=== PATIENT | male | born 1960 | race Caucasian/White ===

== ENCOUNTER 2018-08-03 13:43 | Inpatient (IN) ==
[2018-08-03] MEDS ORDERED: Sod Chloride 0.9% Inj 1,000 ML IV.SIG ONE (14:01)
[2018-08-03 14:25] LABS: Baso % (Auto) 0.1 % (0.0-2.0); Hematocrit 31.4 % (39.0-51.0); Hemoglobin 10.4 gm/dL (13.0-17.0); Lymph # (Auto) 0.4 th/mm3 (1.0-4.8); Lymph % (Auto) 5.5 % (9.0-44.0); Mean Corpuscular HGB Conc 33.2 % (32.0-36.0); Mean Corpuscular Volume 120.4 fL (80.0-100.0); Mean Platelet Volume 9.4 fL (7.0-11.0); Mono # (Auto) 0.6 th/mm3 (0.0-0.9); Mono % (Auto) 7.8 % (0.0-8.0); Neut # (Auto) 6.8 th/mm3 (1.8-7.7); Neut % (Auto) 86.6 % (16.0-70.0); Platelet Count 88 th/mm3 (150-450); Red Blood Count 2.61 mil/mm3 (4.50-5.90); Red Cell Distribution Width 16.6 % (11.6-17.2); White Blood Count 7.9 th/mm3 (4.0-11.0)
[2018-08-03] MEDS ORDERED: Pantoprazole Inj 40 MG Vial IV.PUSH ONE (14:27)
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
--- NOTE | 2018-08-03 14:27 | XR ---
EXAM DATE: 08/03/2018 2:23 PM EDT AGE/SEX: 57 years / Male INDICATIONS: Shortness of breath. CLINICAL DATA: This is the patient's initial encounter. Patient reports that signs and symptoms have been present for 1 day and indicates a pain score of 0/10. MEDICAL/SURGICAL HISTORY: Chronic obstructive pulmonary disease. None. COMPARISON: No prior exams available for comparison. FINDINGS: Lungs are hyperexpanded with biapical bolus change. No significant focal pleural or parenchymal opaci ties. The cardiomediastinal contours are unremarkable. Osseous structures are intact. CONCLUSION: 1. Changes of obstructive pulmonary disease without acute abnormality. Electronically signed by: Minor Bowman MD 08/03/2018 2:26 PM EDT
[2018-08-03 14:34] LABS: INR 1.3 Ratio; Prothrombin Time 13.2 sec (9.8-11.6)
[2018-08-03 14:38] LABS: Albumin 2.6 g/dL (3.4-5.0); Anion Gap 21 meq/L (5-15); Aspartate Aminotransferase 192 U/L (15-37); Blood Urea Nitrogen 20 mg/dL (7-18); Carbon Dioxide 21.6 meq/L (21.0-32.0); Chloride 92 meq/L (98-107); Glomerular Filtration Rate Greater Than 89 mL/min (>89); Glucose,Random 106 mg/dL (74-106); Magnesium 1.7 mg/dL (1.5-2.5); Potassium 3.7 meq/L (3.5-5.1); Sodium 135 meq/L (136-145)
[2018-08-03 14:39] LABS: Alanine Aminotransferase 76 U/L (12-78)
[2018-08-03 14:43] LABS: Alkaline Phosphatase 239 U/L (45-117)
[2018-08-03 14:52] LABS: Basophilic Stippling Moderate
[2018-08-03] MEDS ORDERED: Haloperidol Inj 5 MG/ML Ampul IV.PUSH PRN (15:17)
--- NOTE | 2018-08-03 15:25 | CT ---
EXAM DATE: 08/03/2018 3:18 PM EDT AGE/SEX: 57 years / Male INDICATIONS: Dizziness, weakness. CLINICAL DATA: This is the patient's initial encounter. Patient reports that signs and symptoms have been present for 1 day and indicates a pain score of 0/10. MEDICAL/SURGICAL HISTORY: Chronic obstructive pulmonary disease. Barretts esophagus. None. RADIATION DOSE: 56.35 CTDI (mGy) COMPARISON: [facility] [place], CT BRAIN W/O CONTRAST, 07/14/2011. . TECHNIQUE: CT of the head without contrast. Using automated exposure control and adjustment of the mA and/or kV according to patient size, radiation dose was kept as low as reasonably achievable to ob tain optimal diagnostic quality images. DICOM format image data is available electronically for revi ew and comparison. FINDINGS: Cerebrum: The ventricles are normal for age. Very mild, symmetric cortical atrophy. No evidence of midline shift, mass lesion, hemorrhage or acute infarction. No extraaxial fluid collections are seen . Posterior Fossa: The cerebellum and brainstem are intact. The 4th ventricle is midline. The cerebe llopontine angle is unremarkable. Extracranial: The visualized portion of the orbits is intact. Chronic opacification of the superior aspect of the left maxillary antra with regional bony thickening. Skull: The calvaria is intact. No evidence of skull fracture. CONCLUSION: 1. Chronic sinusitis with regional bony thickening in the superior aspect of the left maxillary antr a. 2. Mild, symmetric cortical atrophy. 3. Nothing acute. . Electronically signed by: Demarco Mauro MD 08/03/2018 3:23 PM EDT
[2018-08-03 15:40] LABS: Bilirubin,Urine Small (Negative); Clarity,Urine Hazy (Clear); Color,Urine Amber (Yellw/Straw); Glucose,Urine (UA) 50 mg/dL (Negative); Hyaline Casts,Urine 3 /lpf (0-3); Ictotest,Urine Positive (Negative); Leukocyte Esterase,Urine Negative (Negative); Mucus,Urine Few /lpf (Occasional); Nitrite,Urine Negative (Negative); Specific Gravity,Urine 1.025 (1.002-1.035); Squamous Epithelial Cell,Urine <1 /hpf (0-5); Urobilinogen,Urine 4 or Greater mg/dL (Less than 2)
[2018-08-03] MEDS: Pantoprazole Inj 80 MG in Sodium Chlor 0.9% Inj 100 ML IV.CONT SCH (16:13)
--- NOTE | 2018-08-03 16:45 | CT ---
EXAM DATE: 08/03/2018 4:37 PM EDT AGE/SEX: 57 years / Male INDICATIONS: Weakness, abdomen pain CLINICAL DATA: This is the patient's initial encounter. Patient reports that signs and symptoms have been present for 1 day and indicates a pain score of 4/10. MEDICAL/SURGICAL HISTORY: Chronic obstructive pulmonary disease. None. ORAL CONTRAST: No oral contrast ingested. RADIATION DOSE: 4.51 CTDI (mGy) COMPARISON: [facility] [place], CT ABDOMEN & PELVIS W CONTRAST, 04/22/2013. . TECHNIQUE: Multiple contiguous axial images were obtained through the abdomen and pelvis following b olus infusion of 96 ml Omnipaque 350 (iohexol) nonionic water-soluble contrast as a cumulative dose for multiple exams. No oral contrast ingested. Using automated exposure control and adjustment of t he mA and/or kV according to patient size, radiation dose was kept as low as reasonably achievable to obtain optimal diagnostic quality images. DICOM format image data is available electronically for r eview and comparison. FINDINGS: Lower Lungs: Bibasilar emphysematous changes. No acute infiltrate. Liver: The liver has a homogeneous, but decreased density without space-occupying lesion. There is no dilation of the biliary tree. Spleen: Homogeneous density without enlargement. Pancreas: Calcifications in the pancreatic head and uncinate process Kidneys: Normal in size and shape. No evidence of mass or hydronephrosis. Small, subcentimeter cyst in the inferior pole cortex of the left kidney. Adrenal Glands: Unremarkable. Aorta: The aorta and proximal iliac vessels are grossly unremarkable without aneurysmal dilation. Bowel/Mesentery: The bowel loops are grossly unremarkable. The cecum and sigmoid colon have a normal configuration. Abdominal Wall: Intact. Retroperitoneum: No evidence of adenopathy in the retrocrural, para-aortic, or deep pelvic regions. Bladder: Contours are smooth. Reproductive Organs: No abnormal masses or calcifications seen. Inguinal: The inguinal region is unremarkable without evidence of adenopathy. Bony Structures: Unremarkable. Post Contrast: No abnormal areas of enhancement seen. CONCLUSION: 1. Chronic pancreatitis with some calcifications in the head and uncinate process. No acute pancreat itis. 2. Diffuse hepatic fatty infiltration. 3. Bibasilar emphysematous changes with no acute infiltrate. Electronically signed by: Demarco Mauro MD 08/03/2018 4:43 PM EDT
--- NOTE | 2018-08-03 18:00 | P.HP ---
History of Present Illness Service: Hospitalist Primary Care Physician: No Primary Care Physician Chief Complaint: Black stool History of Present Illness: Patient is a 57-year-old male with a past medical history of COPD, Stern's esophagus and EtOH abuse. He presents to the ED for an evaluation of weakness - per ED report he was found lying on the side of the road and was picked up by EMS. He was found to have a blood sugar of 50 at that time and endorsed that he had not eaten in a few days; given D50 by EMS. He says he has been so weak he could not walk and had multiple falls. He endorses black stool and occasional emesis with some red blood in it. Also has a complaint of recent weight loss; stating that his pants are falling off. He denies any shortness of breath or chest pain. No nausea vomiting or diarrhea. Does acknowledge a history of EtOH use and liver disease and has reduced his alcohol intake but still drinks occasionally. He is a smoker. Reports that he lives in a hotel room with his longtime girlfriend. No children or other family in the area. 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 - Diagnosis (1) GI bleed (2) Cachectic (3) COPD (chronic obstructive pulmonary disease) (4) Weakness (5) Frequent falls (6) Unintentional weight loss Review of Systems All other systems reviewed negative except as stated in HPI PMFSH - History History Provided By: Patient, Medical Record - Medical History Medical History: Medical History (Last Updated 08/03/18 @ 17:55 by DORIE Terry) Barretts esophagus COPD (chronic obstructive pulmonary disease) Chronic pancreatitis Fatty liver Rectal prolapse - Surgical History Surgical History: Surgical History (Last Reviewed 08/03/18 @ 14:23 by SARAH De Luna) History of hernia repair - Family History Family History: Family History (Last Updated 08/03/18 @ 17:55 by DORIE Terry) Father AAA (abdominal aortic aneurysm, ruptured) Mother CVA (cerebral vascular accident) - Tobacco History Second Hand Smoke Exposure: Yes Tobacco Use In Past 30 Days: Yes Smoking Status: Current some day smoker Tobacco Type: Cigarettes - Alcohol History How Often Do You Have a Drink Containing Alcohol: 4 or more times a week - Substance Use History Substance History: Past History - Travel History Recent Travel in the [facility] Within the Last 8 Weeks: No Recent Travel Out of the Country Within the Last 8 Weeks: No - Immunization History Tetanus Immunization: >5 Years Medications and Allergies Active Medications: Active Medications Flumazenil (Romazecon Inj) 0.2 mg IV.PUSH Q1M PRN PRN Reason: OVERSEDATION Haloperidol Lactate (Haldol Inj) 1 mg IV.PUSH Q15M PRN PRN Reason: for severe agitation Pantoprazole Sodium 80 mg/ (Sodium Chloride) 100 mls @ 10 mls/hr IV.CONT CONT GILMAR Last Admin: 08/03/18 16:13 Dose: 10 mls/hr Sodium Chloride (Ns Inj) 1,000 mls @ 100 mls/hr IV.CONT .Q10H GILMAR Lorazepam (Ativan Inj) 1 mg IV.PUSH Q4H PRN PRN Reason: for CIWA 8-10 Lorazepam (Ativan Inj) 2 mg IV.PUSH Q15M PRN PRN Reason: for CIWA > 20 Lorazepam (Ativan Inj) 2 mg IV.PUSH Q1H PRN PRN Reason: for CIWA 15-20 Lorazepam (Ativan Inj) 2 mg IV.PUSH Q2H PRN PRN Reason: for CIWA 11-14 Lorazepam (Ativan) 1 mg PO Q4H PRN PRN Reason: for CIWA 8-10 Lorazepam (Ativan) 2 mg PO Q2H PRN PRN Reason: for CIWA 11-14 Sodium Chloride (Ns Flush) 2 ml IV.FLUSH PRN PRN PRN Reason: FLUSH AFTER USING IV ACCESS Allergies Allergy/AdvReac Type Severity Reaction Status Date / Time No Known Allergies Allergy Verified 08/03/18 13:56 Home Medications Medication Instructions Recorded Confirmed Type No Known Home Medications 08/03/18 08/03/18 History Exam Vital signs: Vital Signs 08/03/18 13:49 08/03/18 14:20 08/03/18 15:39 Temperature 97.4 F L 98 F Pulse Rate 70 74 Respiratory Rate 18 Blood Pressure 129/81 Pulse Oximetry 99 100 08/03/18 15:48 Temperature Pulse Rate 62 Respiratory Rate 20 Blood Pressure 98/64 L Pulse Oximetry 100 Intake & Output 08/02/18 08/03/18 08/03/18 18:59 06:59 18:59 Intake Total 1000 / 1000 Balance 1000 / 1000 Weight 58.967 kg Intake: IV 1000 / 1000 NS Inj 1,000 ML @ Wide Open IV. 1000 / 1000 SIG BOLUS ONE Rx#:[id number] Narrative: GENERAL: Cachectic, well-developed adult male in no obvious distress. Appears much older than stated age SKIN: Warm and dry. Areas of ecchymosis along left forearm and shins bilaterally. Blister on right second toe. HEAD: Atraumatic. Normocephalic. Poor dentition. EYES: Icterus CARDIOVASCULAR: Regular rate and rhythm. RESPIRATORY: No accessory muscle use. Clear to auscultation. Breath sounds equal bilaterally. GASTROINTESTINAL: Abdomen soft, non-tender, non-distended. Positive bowel sounds. MUSCULOSKELETAL: Extremities without clubbing, cyanosis, or edema. No obvious deformities. NEUROLOGICAL: Awake and alert. No obvious cranial nerve deficits. Motor grossly within normal limits. Normal speech. PSYCHIATRIC: Appropriate mood and affect; insight and judgment good. Results - Labs CBC & Chem 7: 08/03/18 14:13 08/03/18 14:13 Labs: Laboratory Results - last 24 hr 08/03/18 08/03/18 08/03/18 14:13 14:13 14:13 WBC 7.9 RBC 2.61 L Hgb 10.4 L Hct 31.4 L MCV 120.4 H MCH 40.0 H MCHC 33.2 RDW 16.6 Plt Count 88 L MPV 9.4 Prelim Diff (Auto) Slide review pending Neut % (Auto) 86.6 H Lymph % (Auto) 5.5 L [place] % (Auto) 7.8 Eos % (Auto) 0.0 Baso % (Auto) 0.1 Neut # (Auto) 6.8 Lymph # (Auto) 0.4 L [place] # (Auto) 0.6 Eos # (Auto) 0.0 Baso # (Auto) 0.0 WBC Differential . Diff Scan Auto diff confirmed Differential Comment . Platelet Estimate Low L Platelet Morphology Enlarged H Polychromasia 2.0 H Basophilic Stippling Moderate H PT 13.2 H INR 1.3 Sodium 135 L Potassium 3.7 Chloride 92 L Carbon Dioxide 21.6 Anion Gap 21 H BUN 20 H Creatinine 0.80 Estimated GFR Greater than 89 Random Glucose 106 Calcium 8.0 L Magnesium 1.7 Total Bilirubin 6.0 H AST 192 H ALT 76 Alkaline Phosphatase 239 H Troponin I Less than 0.02 L Total Protein 6.0 L Albumin 2.6 L Lipase Urine Color Urine Clarity Urine pH Ur Specific [place] Urine Protein Urine Glucose (UA) Urine Ketones Urine Occult Blood Urine Nitrate Urine Bilirubin Urine Ictotest Urine Urobilinogen Ur Leukocyte Esterase Urine RBC Urine WBC Ur Squamous Epith Cells Hyaline Casts Urine Mucus Micro UA Comment Ur Microscopic Review Urine Culture Comments Serum Alcohol Blood Type Antibody Screen 08/03/18 08/03/18 08/03/18 14:13 14:13 14:13 WBC RBC Hgb Hct MCV MCH MCHC RDW Plt Count MPV Prelim Diff (Auto) Neut % (Auto) Lymph % (Auto) [place] % (Auto) Eos % (Auto) Baso % (Auto) Neut # (Auto) Lymph # (Auto) [place] # (Auto) Eos # (Auto) Baso # (Auto) WBC Differential Diff Scan Differential Comment Platelet Estimate Platelet Morphology Polychromasia Basophilic Stippling PT INR Sodium Potassium Chloride Carbon Dioxide Anion Gap BUN Creatinine Estimated GFR Random Glucose Calcium Magnesium Total Bilirubin AST ALT Alkaline Phosphatase Troponin I Total Protein Albumin Lipase 162 Urine Color Urine Clarity Urine pH Ur Specific [place] Urine Protein Urine Glucose (UA) Urine Ketones Urine Occult Blood Urine Nitrate Urine Bilirubin Urine Ictotest Urine Urobilinogen Ur Leukocyte Esterase Urine RBC Urine WBC Ur Squamous Epith Cells Hyaline Casts Urine Mucus Micro UA Comment Ur Microscopic Review Urine Culture Comments Serum Alcohol Less than 3 Blood Type O Negative Antibody Screen Negative 08/03/18 14:53 WBC RBC Hgb Hct MCV MCH MCHC RDW Plt Count MPV Prelim Diff (Auto) Neut % (Auto) Lymph % (Auto) [place] % (Auto) Eos % (Auto) Baso % (Auto) Neut # (Auto) Lymph # (Auto) [place] # (Auto) Eos # (Auto) Baso # (Auto) WBC Differential Diff Scan Differential Comment Platelet Estimate Platelet Morphology Polychromasia Basophilic Stippling PT INR Sodium Potassium Chloride Carbon Dioxide Anion Gap BUN Creatinine Estimated GFR Random Glucose Calcium Magnesium Total Bilirubin AST ALT Alkaline Phosphatase Troponin I Total Protein Albumin Lipase Urine Color [place] Urine Clarity Hazy H Urine pH 5.0 Ur Specific [place] 1.025 Urine Protein 30 H Urine Glucose (UA) 50 Urine Ketones 80 or greater H Urine Occult Blood Negative Urine Nitrate Negative Urine Bilirubin Small H Urine Ictotest Positive H Urine Urobilinogen 4 or greater Ur Leukocyte Esterase Negative Urine RBC 1 Urine WBC Less than 1 Ur Squamous Epith Cells <1 Hyaline Casts 3 Urine Mucus Few H Micro UA Comment Culture not ind Ur Microscopic Review Not Reportable Urine Culture Comments Culture not ind Serum Alcohol Blood Type Antibody Screen - Imaging Impressions Chest X-Ray 08/03/18 14:01 CONCLUSION: 1. Changes of obstructive pulmonary disease without acute abnormality. Head CT 08/03/18 14:01 CONCLUSION: 1. Chronic sinusitis with regional bony thickening in the superior aspect of the left maxillary antra. 2. Mild, symmetric cortical atrophy. 3. Nothing acute. . Abdomen/Pelvis CT 08/03/18 15:28 CONCLUSION: 1. Chronic pancreatitis with some calcifications in the head and uncinate process. No acute pancreatitis. 2. Diffuse hepatic fatty infiltration. 3. Bibasilar emphysematous changes with no acute infiltrate. Caprini VTE Risk Assessment Caprini VTE Risk Assessment: No/Low Risk (score <= 1) VTE Pharmacological Exception Reason: Active bleeding Caprini Risk Assessment Model: Point Value = 1 Point Value = 2 Point Value = 3 Point Value = 5 Age 41-60 Minor surgery BMI > 25 kg/m2 Swollen legs Varicose veins or History of unexplained or recurrent spontaneous Oral contraceptives or hormone replacement Sepsis (< 1 month) Serious lung disease, including pneumonia (< 1 month) Abnormal pulmonary function Acute myocardial infarction Congestive heart failure (< 1 month) History of inflammatory bowel disease Medical patient at bed rest Age 61-74 Arthroscopic surgery Major open surgery (> 45 min) Laparoscopic surgery (> 45 min) Malignancy Confined to bed (> 72 hours) Immobilizing plaster cast Central venous access Age >= 75 History of VTE Family history of VTE Factor V Leiden Prothrombin [id number] Lupus anticoagulant Anticardiolipin antibodies Elevated serum homocysteine Heparin-induced thrombocytopenia Other congenital or acquired thrombophilia Stroke (< 1 month) Elective arthroplasty Hip, pelvis, or leg fracture Acute spinal cord injury (< 1 month) Prophylaxis Regimen: Total Risk Factor Score Risk Level Prophylaxis Regimen 0-1 Low Early ambulation 2 Moderate Order ONE of the following: *Sequential Compression Device (SCD) *Heparin 5000 units SQ BID 3-4 Higher Order ONE of the following medications: *Heparin 5000 units SQ TID *Enoxaparin/Lovenox 40 mg SQ daily (WT < 150 kg, CrCl > 30 mL/min) *Enoxaparin/Lovenox 30 mg SQ daily (WT < 150 kg, CrCl > 10-29 mL/min) *Enoxaparin/Lovenox 30 mg SQ BID (WT < 150 kg, CrCl > 30 mL/min) AND/OR *Sequential Compression Device (SCD) 5 or more Highest Order ONE of the following medications: *Heparin 5000 units SQ TID (Preferred with Epidurals) *Enoxaparin/Lovenox 40 mg SQ daily (WT < 150 kg, CrCl > 30 mL/min) *Enoxaparin/Lovenox 30 mg SQ daily (WT < 150 kg, CrCl > 10-29 mL/min) *Enoxaparin/Lovenox 30 mg SQ BID (WT < 150 kg, CrCl > 30 mL/min) AND *Sequential Compression Device (SCD) Assessment and Plan - Assessment (1) GI bleed Code(s): K92.2 - Gastrointestinal hemorrhage, unspecified Status: Acute (2) Cachectic Code(s): R64 - Cachexia Status: Acute (3) COPD (chronic obstructive pulmonary disease) Code(s): J44.9 - Chronic obstructive pulmonary disease, unspecified Status: Acute (4) Weakness Code(s): R53.1 - Weakness Status: Acute (5) Frequent falls Code(s): R29.6 - Repeated falls Status: Acute (6) Unintentional weight loss Code(s): R63.4 - Abnormal weight loss Status: Acute - Plan Patient is a 57-year-old male with a past medical history of COPD, Stern's esophagus and EtOH abuse. He presents to the ED for an evaluation of weakness - per ED report he was found lying on the side of the road and was picked up by EMS. He was found to have a blood sugar of 50 at that time and endorsed that he had not eaten in a few days; given D50 by EMS. He says he has been so weak he could not walk and had multiple falls. He endorses black stool and occasional emesis with some red blood in it. GI bleed -GI consulted -Protonix drip started by ED Anemia -Likely acute on top of chronic due to ETO abuse and liver damage -Monitor H&H Dehydration and electrolyte imbalance -Received bolus in ED with thousand mL's NS. Continue rehydration with NS at 100 -Monitor EtOH abuse -[facility] protocol -Counseled cessation Weakness and unintentional weight loss -Hepatitis and HIV panel ordered. Patient gave verbal consent for HIV testing. -Consider PT evaluation prior to discharge DVT prophylaxis: Chemical not indicated due to GI bleed; SCDs Discussed with: Patient and nurse Discharge planning: Likely home as patient has no financial resources
[2018-08-03 19:26] LABS: Folate 17.6 ng/mL (3.1-17.5)
[2018-08-03] MEDS: Sod Chloride 0.9% Inj 1,000 ML IV.CONT SCH (20:00)
[2018-08-03] MEDS: LORazepam 1 MG Tablet PO PRN (20:16)
[2018-08-03] MEDS: Sodium Chloride 0.9% 2 ML Flush BID IV.FLUSH SCH (21:02)
[2018-08-03 23:09] LABS: Hepatitis A IgM Antibody Nonreactive (Nonreactive); Hepatitits B Surface Antigen Nonreactive (Nonreactive)
[2018-08-04] MEDS: Pantoprazole Inj 80 MG in Sodium Chlor 0.9% Inj 100 ML IV.CONT SCH (02:19)
[2018-08-04] MEDS: Sod Chloride 0.9% Inj 1,000 ML IV.CONT SCH (05:58)
[2018-08-04 08:43] LABS: Baso % (Auto) 0.5 % (0.0-2.0); Eos % (Auto) 0.7 % (0.0-4.0); Hematocrit 28.1 % (39.0-51.0); Hemoglobin 9.7 gm/dL (13.0-17.0); Lymph # (Auto) 0.7 th/mm3 (1.0-4.8); Mean Corpuscular HGB Conc 34.6 % (32.0-36.0); Mean Corpuscular Hemoglobin 40.4 pg (27.0-34.0); Mean Corpuscular Volume 116.7 fL (80.0-100.0); Mean Platelet Volume 9.2 fL (7.0-11.0); Mono # (Auto) 0.4 th/mm3 (0.0-0.9); Mono % (Auto) 6.5 % (0.0-8.0); Neut % (Auto) 80.3 % (16.0-70.0); Platelet Count 83 th/mm3 (150-450); Red Blood Count 2.41 mil/mm3 (4.50-5.90); White Blood Count 6.2 th/mm3 (4.0-11.0)
--- NOTE | 2018-08-04 08:57 | P.PN ---
Subjective Interval history: Follow up on patient with GIB. Patient seen and examined. Patient says he feels anxious. He denies any visual or auditory hallucinations. His CIWA is 8. He last drank 2 shots on Tuesday. He denies any fever or chills. He denies any chest pain or dyspnea. He has not had a bowel movement since admission. He denies any further episodes of emesis. He says he does not have any nausea or vomiting at this time. He says he has had a previous EGD in 2013 revealing varices. Physical Exam Vital signs: Vital Signs 08/03/18 13:49 08/03/18 14:20 08/03/18 15:39 Temperature 97.4 F L 98 F Pulse Rate 70 74 Respiratory Rate 18 Blood Pressure 129/81 Pulse Oximetry 99 100 08/03/18 15:48 08/03/18 19:44 08/04/18 00:00 Temperature 98.1 F 97.7 F Pulse Rate 62 65 72 Respiratory Rate 20 18 14 Blood Pressure 98/64 L 123/58 L 122/58 L Pulse Oximetry 100 100 99 08/04/18 04:00 08/04/18 07:22 08/04/18 08:00 Temperature 97.9 F 98.4 F Pulse Rate 58 L 57 L Respiratory Rate 14 16 Blood Pressure 143/62 H 93/64 L Pulse Oximetry 100 100 97 Intake & Output 08/03/18 08/04/18 08/04/18 18:59 06:59 18:59 Intake Total 1000 / 1000 1100 / 1100 Output Total 500 / 500 Balance 1000 / 1000 600 / 600 Weight 58.967 kg Intake: IV 1000 / 1000 1100 / 1100 Protonix Inj 80 MG In NS Inj 100 / 100 100 ML @ 10 mls/hr IV.CONT CONT GILMAR Rx#:[id number] NS Inj 1,000 ML @ 100 mls/hr IV 1000 / 1000 .CONT .Q10H GILMAR Rx#:[id number] NS Inj 1,000 ML @ Wide Open IV. 1000 / 1000 SIG BOLUS ONE Rx#:[id number] Output: Urine 500 / 500 Other: # Voids 2 # Incontinent Voids 1 Date of Last Bowel Movement 08/02/18 Narrative: GENERAL: Extremely thin, cachetic appearing male patient, INAD. Appears much older than stated age. Awake and alert. SKIN: Warm and dry. +superficial skin breakdown noted over bony prominence of right hip and upper coccyx. +Small blister noted on right second toe. HEENT: Atraumatic. Normocephalic. Pupils equal and round. No scleral icterus. No injection or drainage. No nasal bleeding or discharge. Mucous membranes pink and moist. Poor dentition. NECK: Trachea midline. CARDIOVASCULAR: Regular rate and rhythm. RESPIRATORY: No accessory muscle use. Clear to auscultation. Fair air entry. Breath sounds equal bilaterally. GASTROINTESTINAL: Abdomen soft, non-tender, nondistended. +BS. MUSCULOSKELETAL: Extremities without clubbing, cyanosis, or edema. No obvious deformities. NEUROLOGICAL: Awake and alert. No obvious cranial nerve deficits. Motor grossly within normal limits. Able to move all extremities spontaneously. Normal speech. PSYCHIATRIC: Calm and cooperative. Results - Labs CBC & Chem 7: 08/04/18 08:07 08/04/18 08:17 Laboratory Results - last 24 hr 08/03/18 08/03/18 08/03/18 14:13 14:13 14:13 WBC 7.9 RBC 2.61 L Hgb 10.4 L Hct 31.4 L MCV 120.4 H MCH 40.0 H MCHC 33.2 RDW 16.6 Plt Count 88 L MPV 9.4 Prelim Diff (Auto) Slide review pending Neut % (Auto) 86.6 H Lymph % (Auto) 5.5 L Bull[place] % (Auto) 7.8 Eos % (Auto) 0.0 Baso % (Auto) 0.1 Neut # (Auto) 6.8 Lymph # (Auto) 0.4 L [place] # (Auto) 0.6 Eos # (Auto) 0.0 Baso # (Auto) 0.0 WBC Differential . Diff Scan Auto diff confirmed Differential Comment . Platelet Estimate Low L Platelet Morphology Enlarged H Polychromasia 2.0 H Basophilic Stippling Moderate H PT 13.2 H INR 1.3 Sodium 135 L Potassium 3.7 Chloride 92 L Carbon Dioxide 21.6 Anion Gap 21 H BUN 20 H Creatinine 0.80 Estimated GFR Greater than 89 POC Glucose Random Glucose 106 Calcium 8.0 L Phosphorus Magnesium 1.7 Total Bilirubin 6.0 H AST 192 H ALT 76 Alkaline Phosphatase 239 H Troponin I Less than 0.02 L Total Protein 6.0 L Albumin 2.6 L Lipase Vitamin B12 Folate Urine Color Urine Clarity Urine pH Ur Specific [place] Urine Protein Urine Glucose (UA) Urine Ketones Urine Occult Blood Urine Nitrate Urine Bilirubin Urine Ictotest Urine Urobilinogen Ur Leukocyte Esterase Urine RBC Urine WBC Ur Squamous Epith Cells Hyaline Casts Urine Mucus Micro UA Comment Ur Microscopic Review Urine Culture Comments Serum Alcohol Hepatitis A IgM Ab Hep Bs Antigen Hep B Core IgM Ab Hep C IgG Ab HIV 1&2 Ab/P24 Ag 4thGn Blood Type Antibody Screen 08/03/18 08/03/18 08/03/18 14:13 14:13 14:13 WBC RBC Hgb Hct MCV MCH MCHC RDW Plt Count MPV Prelim Diff (Auto) Neut % (Auto) Lymph % (Auto) [place] % (Auto) Eos % (Auto) Baso % (Auto) Neut # (Auto) Lymph # (Auto) [place] # (Auto) Eos # (Auto) Baso # (Auto) WBC Differential Diff Scan Differential Comment Platelet Estimate Platelet Morphology Polychromasia Basophilic Stippling PT INR Sodium Potassium Chloride Carbon Dioxide Anion Gap BUN Creatinine Estimated GFR POC Glucose Random Glucose Calcium Phosphorus Magnesium Total Bilirubin AST ALT Alkaline Phosphatase Troponin I Total Protein Albumin Lipase 162 Vitamin B12 Folate Urine Color Urine Clarity Urine pH Ur Specific [place] Urine Protein Urine Glucose (UA) Urine Ketones Urine Occult Blood Urine Nitrate Urine Bilirubin Urine Ictotest Urine Urobilinogen Ur Leukocyte Esterase Urine RBC Urine WBC Ur Squamous Epith Cells Hyaline Casts Urine Mucus Micro UA Comment Ur Microscopic Review Urine Culture Comments Serum Alcohol Less than 3 Hepatitis A IgM Ab Hep Bs Antigen Hep B Core IgM Ab Hep C IgG Ab HIV 1&2 Ab/P24 Ag 4thGn Blood Type O Negative Antibody Screen Negative 08/03/18 08/03/18 08/03/18 14:13 14:53 21:18 WBC RBC Hgb Hct MCV MCH MCHC RDW Plt Count MPV Prelim Diff (Auto) Neut % (Auto) Lymph % (Auto) [place] % (Auto) Eos % (Auto) Baso % (Auto) Neut # (Auto) Lymph # (Auto) [place] # (Auto) Eos # (Auto) Baso # (Auto) WBC Differential Diff Scan Differential Comment Platelet Estimate Platelet Morphology Polychromasia Basophilic Stippling PT INR Sodium Potassium Chloride Carbon Dioxide Anion Gap BUN Creatinine Estimated GFR POC Glucose Random Glucose Calcium Phosphorus Magnesium Total Bilirubin AST ALT Alkaline Phosphatase Troponin I Total Protein Albumin Lipase Vitamin B12 1258 H Folate 17.6 H Urine Color Nava Urine Clarity Hazy H Urine pH 5.0 Ur Specific [place] 1.025 Urine Protein 30 H Urine Glucose (UA) 50 Urine Ketones 80 or greater H Urine Occult Blood Negative Urine Nitrate Negative Urine Bilirubin Small H Urine Ictotest Positive H Urine Urobilinogen 4 or greater Ur Leukocyte Esterase Negative Urine RBC 1 Urine WBC Less than 1 Ur Squamous Epith Cells <1 Hyaline Casts 3 Urine Mucus Few H Micro UA Comment Culture not ind Ur Microscopic Review Not Reportable Urine Culture Comments Culture not ind Serum Alcohol Hepatitis A IgM Ab Nonreactive Hep Bs Antigen Nonreactive Hep B Core IgM Ab Nonreactive Hep C IgG Ab Nonreactive HIV 1&2 Ab/P24 Ag 4thGn Nonreactive Blood Type Antibody Screen 08/04/18 08/04/18 08/04/18 00:31 01:41 08:07 WBC 6.2 RBC 2.41 L Hgb 9.7 L Hct 28.1 L MCV 116.7 H D MCH 40.4 H MCHC 34.6 RDW 16.0 Plt Count 83 L MPV 9.2 Prelim Diff (Auto) Slide review pending Neut % (Auto) 80.3 H Lymph % (Auto) 12.0 [place] % (Auto) 6.5 Eos % (Auto) 0.7 Baso % (Auto) 0.5 Neut # (Auto) 5.0 Lymph # (Auto) 0.7 L [place] # (Auto) 0.4 Eos # (Auto) 0.0 Baso # (Auto) 0.0 WBC Differential Diff Scan Differential Comment . Platelet Estimate Platelet Morphology Polychromasia Basophilic Stippling PT INR Sodium Potassium Chloride Carbon Dioxide Anion Gap BUN Creatinine Estimated GFR POC Glucose 44 L* 143 H Random Glucose Calcium Phosphorus Magnesium Total Bilirubin AST ALT Alkaline Phosphatase Troponin I Total Protein Albumin Lipase Vitamin B12 Folate Urine Color Urine Clarity Urine pH Ur Specific [place] Urine Protein Urine Glucose (UA) Urine Ketones Urine Occult Blood Urine Nitrate Urine Bilirubin Urine Ictotest Urine Urobilinogen Ur Leukocyte Esterase Urine RBC Urine WBC Ur Squamous Epith Cells Hyaline Casts Urine Mucus Micro UA Comment Ur Microscopic Review Urine Culture Comments Serum Alcohol Hepatitis A IgM Ab Hep Bs Antigen Hep B Core IgM Ab Hep C IgG Ab HIV 1&2 Ab/P24 Ag 4thGn Blood Type Antibody Screen 08/04/18 08:17 WBC RBC Hgb Hct MCV MCH MCHC RDW Plt Count MPV Prelim Diff (Auto) Neut % (Auto) Lymph % (Auto) [place] % (Auto) Eos % (Auto) Baso % (Auto) Neut # (Auto) Lymph # (Auto) [place] # (Auto) Eos # (Auto) Baso # (Auto) WBC Differential Diff Scan Differential Comment Platelet Estimate Platelet Morphology Polychromasia Basophilic Stippling PT INR Sodium Potassium Chloride Carbon Dioxide Anion Gap BUN Creatinine Estimated GFR POC Glucose Random Glucose Calcium Phosphorus Cancelled Magnesium Total Bilirubin AST ALT Alkaline Phosphatase Troponin I Total Protein Albumin Lipase Vitamin B12 Folate Urine Color Urine Clarity Urine pH Ur Specific [place] Urine Protein Urine Glucose (UA) Urine Ketones Urine Occult Blood Urine Nitrate Urine Bilirubin Urine Ictotest Urine Urobilinogen Ur Leukocyte Esterase Urine RBC Urine WBC Ur Squamous Epith Cells Hyaline Casts Urine Mucus Micro UA Comment Ur Microscopic Review Urine Culture Comments Serum Alcohol Hepatitis A IgM Ab Hep Bs Antigen Hep B Core IgM Ab Hep C IgG Ab HIV 1&2 Ab/P24 Ag 4thGn Blood Type Antibody Screen - Imaging Impressions Chest X-Ray 08/03/18 14:01 CONCLUSION: 1. Changes of obstructive pulmonary disease without acute abnormality. Head CT 08/03/18 14:01 CONCLUSION: 1. Chronic sinusitis with regional bony thickening in the superior aspect of the left maxillary antra. 2. Mild, symmetric cortical atrophy. 3. Nothing acute. . Abdomen/Pelvis CT 08/03/18 15:28 CONCLUSION: 1. Chronic pancreatitis with some calcifications in the head and uncinate process. No acute pancreatitis. 2. Diffuse hepatic fatty infiltration. 3. Bibasilar emphysematous changes with no acute infiltrate. Assessment and Plan - Assessment (1) GI bleed Code(s): K92.2 - Gastrointestinal hemorrhage, unspecified Status: Acute (2) Cachectic Code(s): R64 - Cachexia Status: Chronic (3) COPD (chronic obstructive pulmonary disease) Code(s): J44.9 - Chronic obstructive pulmonary disease, unspecified Status: Chronic (4) Weakness Code(s): R53.1 - Weakness Status: Acute (5) Frequent falls Code(s): R29.6 - Repeated falls Status: Acute (6) Unintentional weight loss Code(s): R63.4 - Abnormal weight loss Status: Acute - Plan Patient is a 57-year-old male with a past medical history of COPD, Stern's esophagus and EtOH abuse. He presents to the ED for an evaluation of weakness - per ED report he was found lying on the side of the road and was picked up by EMS. He was found to have a blood sugar of 50 at that time and endorsed that he had not eaten in a few days; given D50 by EMS. He says he has been so weak he could not walk and had multiple falls. He endorses black stool and occasional emesis with some red blood in it. GI bleed, possibly secondary to esophageal varices hx of Barretts esophagus -GI consulted, appreciate assistance. Keep NPO. IVF. Plan for EGD today -Protonix drip started by ED, continue -monitor H/H closely Anemia, suspect acute on chronic, multifactorial due to active GIB, ongoing alcohol abuse and suspected liver disease no e/o active bleeding -hgb dropped from 10.4 to 9.7 -continue to monitor H&H. Repeat CBC in am. 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 Brar Discharge Planning: Not ready for discharge
[2018-08-04] MEDS: Sodium Chloride 0.9% 2 ML Flush BID IV.FLUSH SCH ×2 (09:09→22:58)
[2018-08-04 09:34] LABS: Lymphocytes 8 % (9-44); Monocytes 2 % (0-8)
[2018-08-04 09:35] LABS: Platelet Morphology Normal (Normal)
[2018-08-04 09:54] LABS: Alanine Aminotransferase 60 U/L (12-78); Alkaline Phosphatase 179 U/L (45-117); Anion Gap 16 meq/L (5-15); Aspartate Aminotransferase 122 U/L (15-37); Blood Urea Nitrogen 8 mg/dL (7-18); Calcium 7.1 mg/dL (8.5-10.1); Carbon Dioxide 23.5 meq/L (21.0-32.0); Chloride 97 meq/L (98-107); Glomerular Filtration Rate Greater Than 89 mL/min (>89); Magnesium 1.6 mg/dL (1.5-2.5); Phosphorus 2.6 mg/dL (2.5-4.9); Sodium 136 meq/L (136-145)
[2018-08-04 09:59] LABS: Potassium 2.7 meq/L (3.5-5.1)
[2018-08-04 10:00] LABS: Glucose,Random 47 mg/dL (74-106)
[2018-08-04] MEDS ORDERED: Dextrose 5% in Water Inj 1,000 ML IV.CONT SCH (10:00)
[2018-08-04] MEDS ORDERED: Mag Sulf 1 gm/100 ml Premix 100 ML IV.SIG ONE (10:03)
[2018-08-04] MEDS: Potassium Chlor 20 mEq Premix 20 MEQ/100 ML PIGGYBACK IV.SIG SCH ×2 (10:24→13:16)
--- NOTE | 2018-08-04 11:10 | P.CONGI ---
History of Present Illness Consult date: 08/04/18 Consult reason: GI bleed Chief complaint: GI Bleed, hyperbilirubinemia History of Present Illness: This patient is a 57-year-old male with a past medical history significant for COPD, Stern's esophagus and EtOH abuse. Patient presented to the emergency room on 08/03/2018 via EMS. Patient was noted to be complaining of generalized weakness with hypoglycemia-blood sugar 50. Patient was treated for same by EMS and reported that he has been feeling generally weak for 3-4 days and endorses having black tarry stools and occasional vomiting with small amounts of bright red blood noted. Patient denies shortness of breath or chest pain. Denies diarrhea or constipation. Patient states he has had weight loss of approximately 15 pounds in the last 6 months. Our service has been consulted to evaluate patient's GI bleeding. On consultation patient states he has had 1 to 2 black tarry stools daily for the last 3-4 days with occasional vomiting that has small amount of bright red blood noted. He reports that he normally has 1-2 bowel movements that are soft brown daily without any noted bleeding. Patient states he drinks a 6 pack of beer every 3 days along with shots of hard liquor. Patient unsure of the dates of last EGD and colonoscopy. Denies any known family history of gastrointestinal diseases/disorders. States that he has occasional heartburn and notices some difficulty eating pieces of solid meat. He states "sometimes it feels stuck". Patient denies any difficulty with liquids or medications. Denies any use of prescription Meds, reports occasional use of Advil for headaches and joint pain. <Vicki Acuna - Last Filed: 08/04/18 10:38> Review of Systems All other systems reviewed negative except as stated in HPI <Vicki Acuna - Last Filed: 08/04/18 10:38> PMFSH - History History Provided By: Patient - Medical History Medical History: Medical History (Last Updated 08/03/18 @ 17:55 by DORIE Terry) Barretts esophagus COPD (chronic obstructive pulmonary disease) Chronic pancreatitis Fatty liver Rectal prolapse - Surgical History Surgical History: Surgical History (Last Reviewed 08/03/18 @ 14:23 by SARAH De Luna) History of hernia repair - Family History Family History: Family History (Last Updated 08/03/18 @ 17:55 by DORIE Terry) Father AAA (abdominal aortic aneurysm, ruptured) Mother CVA (cerebral vascular accident) - Tobacco History Second Hand Smoke Exposure: Yes Tobacco Use In Past 30 Days: Yes Smoking Status: Light tobacco smoker Tobacco Type: Cigarettes - Alcohol History How Often Do You Have a Drink Containing Alcohol: 2 to 3 times a week - Substance Use History Substance History: No History of Abuse - Travel History Recent Travel in the [place] Within the Last 8 Weeks: No Recent Travel Out of the Country Within the Last 8 Weeks: No - Immunization History Tetanus Immunization: >5 Years <Vicki Acuna - Last Filed: 08/04/18 10:38> - Medical History Medical History: Medical History (Last Updated 08/03/18 @ 17:55 by DORIE Terry) Barretts esophagus COPD (chronic obstructive pulmonary disease) Chronic pancreatitis Fatty liver Rectal prolapse - Surgical History Surgical History: Surgical History (Last Reviewed 08/03/18 @ 14:23 by SARAH De Luna) History of hernia repair - Family History Family History: Family History (Last Updated 08/03/18 @ 17:55 by DORIE Terry) Father AAA (abdominal aortic aneurysm, ruptured) Mother CVA (cerebral vascular accident) <Gurdeep Morales - Last Filed: 08/04/18 16:56> Medications and Allergies Active Medications: Active Medications Albuterol (Duoneb Neb (Prn)) 1 ampul NEB Q4HR NEB PRN PRN Reason: SHORTNESS OF BREATH/WHEEZING Flumazenil (Romazecon Inj) 0.2 mg IV.PUSH Q1M PRN PRN Reason: OVERSEDATION Haloperidol Lactate (Haldol Inj) 1 mg IV.PUSH Q15M PRN PRN Reason: for severe agitation Pantoprazole Sodium 80 mg/ (Sodium Chloride) 100 mls @ 10 mls/hr IV.CONT CONT GILMAR Last Infusion: 08/04/18 10:25 Dose: 0 mls/hr Potassium Chloride (Kcl 20 Meq Premix Inj) 20 meq in 100 mls @ 50 mls/hr IV.SIG Q2H GILMAR Stop: 08/04/18 14:02 Last Admin: 08/04/18 10:24 Dose: 50 mls/hr Magnesium Sulfate/Dextrose (Magnesium Sulfate 1 Gm/D5w 100 Ml Premix) 100 mls @ 100 mls/hr IV.SIG ONCE ONE Stop: 08/04/18 11:02 Last Admin: 08/04/18 10:24 Dose: 100 mls/hr Potassium Chloride 10 meq/ (Dextrose) 1,005 mls @ 84 mls/hr IV.CONT .[id number] [facility] Lorazepam (Ativan Inj) 1 mg IV.PUSH Q4H PRN PRN Reason: for CIWA 8-10 Last Admin: 08/04/18 09:04 Dose: 1 mg Lorazepam (Ativan Inj) 2 mg IV.PUSH Q15M PRN PRN Reason: for CIWA > 20 Lorazepam (Ativan Inj) 2 mg IV.PUSH Q1H PRN PRN Reason: for CIWA 15-20 Lorazepam (Ativan Inj) 2 mg IV.PUSH Q2H PRN PRN Reason: for CIWA 11-14 Lorazepam (Ativan) 1 mg PO Q4H PRN PRN Reason: for CIWA 8-10 Last Admin: 08/03/18 20:16 Dose: 1 mg Lorazepam (Ativan) 2 mg PO Q2H PRN PRN Reason: for CIWA 11-14 Multivitamins/Folic Acid/Vitamin C (Flintstones) 1 tab CHEW DAILY [facility] Nicotine (Habitrol 21 Mg Patch.24 Hr) 1 patch T-DERMAL DAILY [facility] Last Admin: 08/04/18 09:04 Dose: 1 patch Patch Removal (Remove Old Patch) 1 each T-DERMAL DAILY [facility] Last Admin: 08/04/18 09:08 Dose: 1 each Sodium Chloride (Ns Flush) 2 ml IV.FLUSH PRN PRN PRN Reason: FLUSH AFTER USING IV ACCESS Sodium Chloride (Ns Flush) 2 ml IV.FLUSH BID [facility] Last Admin: 08/04/18 09:09 Dose: 2 ml Thiamine HCl (Vitamin B1) 100 mg PO BID [facility] Last Admin: 08/04/18 09:03 Dose: 100 mg <Vicki Acuna - Last Filed: 08/04/18 10:38> Active Medications: Active Medications Albuterol (Duoneb Neb (Prn)) 1 ampul NEB Q4HR NEB PRN PRN Reason: SHORTNESS OF BREATH/WHEEZING Flumazenil (Romazecon Inj) 0.2 mg IV.PUSH Q1M PRN PRN Reason: OVERSEDATION Haloperidol Lactate (Haldol Inj) 1 mg IV.PUSH Q15M PRN PRN Reason: for severe agitation Pantoprazole Sodium 80 mg/ (Sodium Chloride) 100 mls @ 10 mls/hr IV.CONT CONT [facility] Last Infusion: 08/04/18 13:20 Dose: Infused Potassium Chloride 10 meq/ (Dextrose) 1,005 mls @ 84 mls/hr IV.CONT .[id number] [facility] Last Admin: 08/04/18 13:02 Dose: 84 mls/hr Lorazepam (Ativan Inj) 1 mg IV.PUSH Q4H PRN PRN Reason: for CIWA 8-10 Last Admin: 08/04/18 09:04 Dose: 1 mg Lorazepam (Ativan Inj) 2 mg IV.PUSH Q15M PRN PRN Reason: for CIWA > 20 Lorazepam (Ativan Inj) 2 mg IV.PUSH Q1H PRN PRN Reason: for CIWA 15-20 Lorazepam (Ativan Inj) 2 mg IV.PUSH Q2H PRN PRN Reason: for CIWA 11-14 Lorazepam (Ativan) 1 mg PO Q4H PRN PRN Reason: for CIWA 8-10 Last Admin: 08/03/18 20:16 Dose: 1 mg Lorazepam (Ativan) 2 mg PO Q2H PRN PRN Reason: for CIWA 11-14 Multivitamins/Folic Acid/Vitamin C (Flintstones) 1 tab CHEW DAILY [facility] Last Admin: 08/04/18 15:13 Dose: 1 tab Nicotine (Habitrol 21 Mg Patch.24 Hr) 1 patch T-DERMAL DAILY [facility] Last Admin: 08/04/18 09:04 Dose: 1 patch Patch Removal (Remove Old Patch) 1 each T-DERMAL DAILY [facility] Last Admin: 08/04/18 09:08 Dose: 1 each Sodium Chloride (Ns Flush) 2 ml IV.FLUSH PRN PRN PRN Reason: FLUSH AFTER USING IV ACCESS Sodium Chloride (Ns Flush) 2 ml IV.FLUSH BID [facility] Last Admin: 08/04/18 09:09 Dose: 2 ml Thiamine HCl (Vitamin B1) 100 mg PO BID [facility] Last Admin: 08/04/18 09:03 Dose: 100 mg <Gurdeep Morales E - Last Filed: 08/04/18 16:56> Allergies Allergy/AdvReac Type Severity Reaction Status Date / Time No Known Allergies Allergy Verified 08/03/18 13:56 Home Medications Medication Instructions Recorded Confirmed Type No Known Home Medications 08/03/18 08/03/18 History Exam Vital signs: Vital Signs 08/03/18 13:49 08/03/18 14:20 08/03/18 15:39 Temperature 97.4 F L 98 F Pulse Rate 70 74 Respiratory Rate 18 Blood Pressure 129/81 Pulse Oximetry 99 100 08/03/18 15:48 08/03/18 19:44 08/04/18 00:00 Temperature 98.1 F 97.7 F Pulse Rate 62 65 72 Respiratory Rate 20 18 14 Blood Pressure 98/64 L 123/58 L 122/58 L Pulse Oximetry 100 100 99 08/04/18 04:00 08/04/18 07:22 08/04/18 08:00 Temperature 97.9 F 98.4 F Pulse Rate 58 L 57 L Respiratory Rate 14 16 Blood Pressure 143/62 H 93/64 L Pulse Oximetry 100 100 97 Intake & Output 08/03/18 08/04/18 08/04/18 18:59 06:59 18:59 Intake Total 1000 / 1000 1100 / 1100 100 / 100 Output Total 500 / 500 Balance 1000 / 1000 600 / 600 100 / 100 Weight 58.967 kg Intake: IV 1000 / 1000 1100 / 1100 100 / 100 Protonix Inj 80 MG In NS Inj 100 / 100 100 ML @ 10 mls/hr IV.CONT CONT GILMAR Rx#:[id number] NS Inj 1,000 ML @ 100 mls/hr IV 1000 / 1000 100 / 100 .CONT .Q10H GILMAR Rx#:[id number] NS Inj 1,000 ML @ Wide Open IV. 1000 / 1000 SIG BOLUS ONE Rx#:[id number] Output: Urine 500 / 500 Other: # Voids 2 # Incontinent Voids 1 Date of Last Bowel Movement 08/02/18 - Constitutional chronically ill appearing - Routine HEENT Exam Head: Present: normocephalic Eye: Present: conjunctival icterus - Routine Respiratory Exam Present: CTA bilaterally. Absent: accessory muscle use - Routine Cardiovascular Exam Present: RRR - Routine Abdominal Exam Present: soft, normoactive bowel sounds. Absent: tenderness, distended, guarding, firm - Routine Extremities Exam Present: full ROM, pulses intact. Absent: cyanosis, edema - Routine Skin Exam Present: dry, warm - Routine Neurological Exam Present: alert - Routine Psychiatric Exam Present: normal affect, cooperative <Vicki Acuna - Last Filed: 08/04/18 10:38> Vital signs: Vital Signs 08/03/18 19:44 08/04/18 00:00 08/04/18 04:00 Temperature 98.1 F 97.7 F 97.9 F Pulse Rate 65 72 58 L Respiratory Rate 18 14 14 Blood Pressure 123/58 L 122/58 L 143/62 H Pulse Oximetry 100 99 100 08/04/18 07:22 08/04/18 08:00 08/04/18 11:34 Temperature 98.4 F 97.9 F Pulse Rate 57 L 68 Respiratory Rate 16 16 Blood Pressure 93/64 L 92/65 L Pulse Oximetry 100 97 97 08/04/18 16:29 Temperature 97.0 F L Pulse Rate 54 L Respiratory Rate 16 Blood Pressure 91/53 L Pulse Oximetry 100 Intake & Output 08/03/18 08/04/18 08/04/18 18:59 06:59 18:59 Intake Total 1000 / 1000 1100 / 1100 800 / 800 Output Total 500 / 500 Balance 1000 / 1000 600 / 600 800 / 800 Weight 58.967 kg Intake: IV 1000 / 1000 1100 / 1100 500 / 500 Protonix Inj 80 MG In NS Inj 100 / 100 100 / 100 100 ML @ 10 mls/hr IV.CONT CONT GILMAR Rx#:[id number] NS Inj 1,000 ML @ 100 mls/hr IV 1000 / 1000 100 / 100 .CONT .Q10H GILMAR Rx#:[id number] Magnesium Sulfate 1 gm/D5W 100 100 / 100 ml Premix 100 ML @ 100 mls/hr IV.SIG ONCE ONE Rx#:[id number] KCl 20 mEq Premix Inj 20 meq In 200 / 200 100 ml @ 50 mls/hr IV.SIG Q2H GLIMAR Rx#:[id number] NS Inj 1,000 ML @ Wide Open IV. 1000 / 1000 SIG BOLUS ONE Rx#:[id number] Anesthesia Amount 300 / 300 Output: Urine 500 / 500 Other: # Voids 2 # Incontinent Voids 1 Date of Last Bowel Movement 08/02/18 <Gurdeep Morales - Last Filed: 10/26/18 16:56> Results - Labs CBC & Chem 7: 08/04/18 08:07 08/04/18 08:17 Labs: Laboratory Results - last 24 hr 08/03/18 08/03/18 08/03/18 14:13 14:13 14:13 WBC 7.9 RBC 2.61 L Hgb 10.4 L Hct 31.4 L MCV 120.4 H MCH 40.0 H MCHC 33.2 RDW 16.6 Plt Count 88 L MPV 9.4 Prelim Diff (Auto) Slide review pending Neut % (Auto) 86.6 H Lymph % (Auto) 5.5 L Cass % (Auto) 7.8 Eos % (Auto) 0.0 Baso % (Auto) 0.1 Neut # (Auto) 6.8 Lymph # (Auto) 0.4 L Cass # (Auto) 0.6 Eos # (Auto) 0.0 Baso # (Auto) 0.0 WBC Differential . Diff Scan Auto diff confirmed Seg Neuts % (Manual) Band Neuts % (Manual) Lymphocytes % (Manual) Monocytes % (Manual) Abs Neuts (Manual) Differential Comment . Platelet Estimate Low L Platelet Morphology Enlarged H Polychromasia 2.0 H Basophilic Stippling Moderate H PT 13.2 H INR 1.3 Sodium 135 L Potassium 3.7 Chloride 92 L Carbon Dioxide 21.6 Anion Gap 21 H BUN 20 H Creatinine 0.80 Estimated GFR Greater than 89 POC Glucose Random Glucose 106 Calcium 8.0 L Prot Corrected Calcium Phosphorus Magnesium 1.7 Total Bilirubin 6.0 H AST 192 H ALT 76 Alkaline Phosphatase 239 H Troponin I Less than 0.02 L Total Protein 6.0 L Albumin 2.6 L Lipase Vitamin B12 Folate Urine Color Urine Clarity Urine pH Ur Specific Velma Urine Protein Urine Glucose (UA) Urine Ketones Urine Occult Blood Urine Nitrate Urine Bilirubin Urine Ictotest Urine Urobilinogen Ur Leukocyte Esterase Urine RBC Urine WBC Ur Squamous Epith Cells Hyaline Casts Urine Mucus Micro UA Comment Ur Microscopic Review Urine Culture Comments Serum Alcohol Hepatitis A IgM Ab Hep Bs Antigen Hep B Core IgM Ab Hep C IgG Ab HIV 1&2 Ab/P24 Ag 4thGn Blood Type Antibody Screen 08/03/18 08/03/18 08/03/18 14:13 14:13 14:13 WBC RBC Hgb Hct MCV MCH MCHC RDW Plt Count MPV Prelim Diff (Auto) Neut % (Auto) Lymph % (Auto) Cass % (Auto) Eos % (Auto) Baso % (Auto) Neut # (Auto) Lymph # (Auto) Cass # (Auto) Eos # (Auto) Baso # (Auto) WBC Differential Diff Scan Seg Neuts % (Manual) Band Neuts % (Manual) Lymphocytes % (Manual) Monocytes % (Manual) Abs Neuts (Manual) Differential Comment Platelet Estimate Platelet Morphology Polychromasia Basophilic Stippling PT INR Sodium Potassium Chloride Carbon Dioxide Anion Gap BUN Creatinine Estimated GFR POC Glucose Random Glucose Calcium Prot Corrected Calcium Phosphorus Magnesium Total Bilirubin AST ALT Alkaline Phosphatase Troponin I Total Protein Albumin Lipase 162 Vitamin B12 Folate Urine Color Urine Clarity Urine pH Ur Specific Velma Urine Protein Urine Glucose (UA) Urine Ketones Urine Occult Blood Urine Nitrate Urine Bilirubin Urine Ictotest Urine Urobilinogen Ur Leukocyte Esterase Urine RBC Urine WBC Ur Squamous Epith Cells Hyaline Casts Urine Mucus Micro UA Comment Ur Microscopic Review Urine Culture Comments Serum Alcohol Less than 3 Hepatitis A IgM Ab Hep Bs Antigen Hep B Core IgM Ab Hep C IgG Ab HIV 1&2 Ab/P24 Ag 4thGn Blood Type O Negative Antibody Screen Negative 08/03/18 08/03/18 08/03/18 14:13 14:53 21:18 WBC RBC Hgb Hct MCV MCH MCHC RDW Plt Count MPV Prelim Diff (Auto) Neut % (Auto) Lymph % (Auto) Cass % (Auto) Eos % (Auto) Baso % (Auto) Neut # (Auto) Lymph # (Auto) Cass # (Auto) Eos # (Auto) Baso # (Auto) WBC Differential Diff Scan Seg Neuts % (Manual) Band Neuts % (Manual) Lymphocytes % (Manual) Monocytes % (Manual) Abs Neuts (Manual) Differential Comment Platelet Estimate Platelet Morphology Polychromasia Basophilic Stippling PT INR Sodium Potassium Chloride Carbon Dioxide Anion Gap BUN Creatinine Estimated GFR POC Glucose Random Glucose Calcium Prot Corrected Calcium Phosphorus Magnesium Total Bilirubin AST ALT Alkaline Phosphatase Troponin I Total Protein Albumin Lipase Vitamin B12 1258 H Folate 17.6 H Urine Color Nava Urine Clarity Hazy H Urine pH 5.0 Ur Specific Velma 1.025 Urine Protein 30 H Urine Glucose (UA) 50 Urine Ketones 80 or greater H Urine Occult Blood Negative Urine Nitrate Negative Urine Bilirubin Small H Urine Ictotest Positive H Urine Urobilinogen 4 or greater Ur Leukocyte Esterase Negative Urine RBC 1 Urine WBC Less than 1 Ur Squamous Epith Cells <1 Hyaline Casts 3 Urine Mucus Few H Micro UA Comment Culture not ind Ur Microscopic Review Not Reportable Urine Culture Comments Culture not ind Serum Alcohol Hepatitis A IgM Ab Nonreactive Hep Bs Antigen Nonreactive Hep B Core IgM Ab Nonreactive Hep C IgG Ab Nonreactive HIV 1&2 Ab/P24 Ag 4thGn Nonreactive Blood Type Antibody Screen 08/04/18 08/04/18 08/04/18 00:31 01:41 08:07 WBC 6.2 RBC 2.41 L Hgb 9.7 L Hct 28.1 L MCV 116.7 H D MCH 40.4 H MCHC 34.6 RDW 16.0 Plt Count 83 L MPV 9.2 Prelim Diff (Auto) Slide review pending Neut % (Auto) 80.3 H Lymph % (Auto) 12.0 Cass % (Auto) 6.5 Eos % (Auto) 0.7 Baso % (Auto) 0.5 Neut # (Auto) 5.0 Lymph # (Auto) 0.7 L Cass # (Auto) 0.4 Eos # (Auto) 0.0 Baso # (Auto) 0.0 WBC Differential Manual diff final Diff Scan Seg Neuts % (Manual) 83 H Band Neuts % (Manual) 7 H Lymphocytes % (Manual) 8 L Monocytes % (Manual) 2 Abs Neuts (Manual) 5.6 Differential Comment . Platelet Estimate Low L Platelet Morphology Normal Polychromasia Basophilic Stippling PT INR Sodium Potassium Chloride Carbon Dioxide Anion Gap BUN Creatinine Estimated GFR POC Glucose 44 L* 143 H Random Glucose Calcium Prot Corrected Calcium Phosphorus Magnesium Total Bilirubin AST ALT Alkaline Phosphatase Troponin I Total Protein Albumin Lipase Vitamin B12 Folate Urine Color Urine Clarity Urine pH Ur Specific Velma Urine Protein Urine Glucose (UA) Urine Ketones Urine Occult Blood Urine Nitrate Urine Bilirubin Urine Ictotest Urine Urobilinogen Ur Leukocyte Esterase Urine RBC Urine WBC Ur Squamous Epith Cells Hyaline Casts Urine Mucus Micro UA Comment Ur Microscopic Review Urine Culture Comments Serum Alcohol Hepatitis A IgM Ab Hep Bs Antigen Hep B Core IgM Ab Hep C IgG Ab HIV 1&2 Ab/P24 Ag 4thGn Blood Type Antibody Screen 08/04/18 08/04/18 08/04/18 08:17 08:17 09:15 WBC RBC Hgb Hct MCV MCH MCHC RDW Plt Count MPV Prelim Diff (Auto) Neut % (Auto) Lymph % (Auto) Cass % (Auto) Eos % (Auto) Baso % (Auto) Neut # (Auto) Lymph # (Auto) Cass # (Auto) Eos # (Auto) Baso # (Auto) WBC Differential Diff Scan Seg Neuts % (Manual) Band Neuts % (Manual) Lymphocytes % (Manual) Monocytes % (Manual) Abs Neuts (Manual) Differential Comment Platelet Estimate Platelet Morphology Polychromasia Basophilic Stippling PT INR Sodium 136 Potassium 2.7 L* D Chloride 97 L Carbon Dioxide 23.5 Anion Gap 16 H BUN 8 Creatinine 0.48 L Estimated GFR Greater than 89 POC Glucose 66 L Random Glucose 47 L* Calcium 7.1 L* D Prot Corrected Calcium 8.2 L Phosphorus 2.6 Cancelled Magnesium 1.6 Total Bilirubin 3.2 H AST 122 H ALT 60 Alkaline Phosphatase 179 H Troponin I Total Protein 5.0 L D Albumin 2.0 L D Lipase Vitamin B12 Folate Urine Color Urine Clarity Urine pH Ur Specific Velma Urine Protein Urine Glucose (UA) Urine Ketones Urine Occult Blood Urine Nitrate Urine Bilirubin Urine Ictotest Urine Urobilinogen Ur Leukocyte Esterase Urine RBC Urine WBC Ur Squamous Epith Cells Hyaline Casts Urine Mucus Micro UA Comment Ur Microscopic Review Urine Culture Comments Serum Alcohol Hepatitis A IgM Ab Hep Bs Antigen Hep B Core IgM Ab Hep C IgG Ab HIV 1&2 Ab/P24 Ag 4thGn Blood Type Antibody Screen - Imaging Impressions Chest X-Ray 08/03/18 14:01 CONCLUSION: 1. Changes of obstructive pulmonary disease without acute abnormality. Head CT 08/03/18 14:01 CONCLUSION: 1. Chronic sinusitis with regional bony thickening in the superior aspect of the left maxillary antra. 2. Mild, symmetric cortical atrophy. 3. Nothing acute. . Abdomen/Pelvis CT 08/03/18 15:28 CONCLUSION: 1. Chronic pancreatitis with some calcifications in the head and uncinate process. No acute pancreatitis. 2. Diffuse hepatic fatty infiltration. 3. Bibasilar emphysematous changes with no acute infiltrate. <Vicki Acuna - Last Filed: 08/04/18 10:38> - Labs CBC & Chem 7: 08/04/18 08:07 08/04/18 08:17 Labs: Laboratory Results - last 24 hr 08/03/18 08/03/18 08/03/18 14:13 14:13 21:18 WBC RBC Hgb Hct MCV MCH MCHC RDW Plt Count MPV Prelim Diff (Auto) Neut % (Auto) Lymph % (Auto) Cass % (Auto) Eos % (Auto) Baso % (Auto) Neut # (Auto) Lymph # (Auto) Cass # (Auto) Eos # (Auto) Baso # (Auto) WBC Differential Seg Neuts % (Manual) Band Neuts % (Manual) Lymphocytes % (Manual) Monocytes % (Manual) Abs Neuts (Manual) Differential Comment Platelet Estimate Platelet Morphology Sodium Potassium Chloride Carbon Dioxide Anion Gap BUN Creatinine Estimated GFR POC Glucose Random Glucose Calcium Prot Corrected Calcium Phosphorus Magnesium Total Bilirubin AST ALT Alkaline Phosphatase Total Protein Albumin Vitamin B12 1258 H Folate 17.6 H TSH Serum Alcohol Less than 3 Hepatitis A IgM Ab Nonreactive Hep Bs Antigen Nonreactive Hep B Core IgM Ab Nonreactive Hep C IgG Ab Nonreactive HIV 1&2 Ab/P24 Ag 4thGn Nonreactive 08/04/18 08/04/18 08/04/18 00:31 01:41 08:07 WBC 6.2 RBC 2.41 L Hgb 9.7 L Hct 28.1 L MCV 116.7 H D MCH 40.4 H MCHC 34.6 RDW 16.0 Plt Count 83 L MPV 9.2 Prelim Diff (Auto) Slide review pending Neut % (Auto) 80.3 H Lymph % (Auto) 12.0 Cass % (Auto) 6.5 Eos % (Auto) 0.7 Baso % (Auto) 0.5 Neut # (Auto) 5.0 Lymph # (Auto) 0.7 L Cass # (Auto) 0.4 Eos # (Auto) 0.0 Baso # (Auto) 0.0 WBC Differential Manual diff final Seg Neuts % (Manual) 83 H Band Neuts % (Manual) 7 H Lymphocytes % (Manual) 8 L Monocytes % (Manual) 2 Abs Neuts (Manual) 5.6 Differential Comment . Platelet Estimate Low L Platelet Morphology Normal Sodium Potassium Chloride Carbon Dioxide Anion Gap BUN Creatinine Estimated GFR POC Glucose 44 L* 143 H Random Glucose Calcium Prot Corrected Calcium Phosphorus Magnesium Total Bilirubin AST ALT Alkaline Phosphatase Total Protein Albumin Vitamin B12 Folate TSH Serum Alcohol Hepatitis A IgM Ab Hep Bs Antigen Hep B Core IgM Ab Hep C IgG Ab HIV 1&2 Ab/P24 Ag 4thGn 08/04/18 08/04/18 08/04/18 08:17 08:17 08:17 WBC RBC Hgb Hct MCV MCH MCHC RDW Plt Count MPV Prelim Diff (Auto) Neut % (Auto) Lymph % (Auto) Cass % (Auto) Eos % (Auto) Baso % (Auto) Neut # (Auto) Lymph # (Auto) Cass # (Auto) Eos # (Auto) Baso # (Auto) WBC Differential Seg Neuts % (Manual) Band Neuts % (Manual) Lymphocytes % (Manual) Monocytes % (Manual) Abs Neuts (Manual) Differential Comment Platelet Estimate Platelet Morphology Sodium 136 Potassium 2.7 L* D Chloride 97 L Carbon Dioxide 23.5 Anion Gap 16 H BUN 8 Creatinine 0.48 L Estimated GFR Greater than 89 POC Glucose Random Glucose 47 L* Calcium 7.1 L* D Prot Corrected Calcium 8.2 L Phosphorus 2.6 Cancelled Magnesium 1.6 Total Bilirubin 3.2 H AST 122 H ALT 60 Alkaline Phosphatase 179 H Total Protein 5.0 L D Albumin 2.0 L D Vitamin B12 Folate TSH 2.450 Serum Alcohol Hepatitis A IgM Ab Hep Bs Antigen Hep B Core IgM Ab Hep C IgG Ab HIV 1&2 Ab/P24 Ag 4thGn 08/04/18 08/04/18 09:15 11:18 WBC RBC Hgb Hct MCV MCH MCHC RDW Plt Count MPV Prelim Diff (Auto) Neut % (Auto) Lymph % (Auto) Cass % (Auto) Eos % (Auto) Baso % (Auto) Neut # (Auto) Lymph # (Auto) Cass # (Auto) Eos # (Auto) Baso # (Auto) WBC Differential Seg Neuts % (Manual) Band Neuts % (Manual) Lymphocytes % (Manual) Monocytes % (Manual) Abs Neuts (Manual) Differential Comment Platelet Estimate Platelet Morphology Sodium Potassium Chloride Carbon Dioxide Anion Gap BUN Creatinine Estimated GFR POC Glucose 66 L 92 Random Glucose Calcium Prot Corrected Calcium Phosphorus Magnesium Total Bilirubin AST ALT Alkaline Phosphatase Total Protein Albumin Vitamin B12 Folate TSH Serum Alcohol Hepatitis A IgM Ab Hep Bs Antigen Hep B Core IgM Ab Hep C IgG Ab HIV 1&2 Ab/P24 Ag 4thGn <Gurdeep Morales - Last Filed: 08/04/18 16:56> Assessment and Plan (1) GI bleed Status: Acute Code(s): K92.2 - Gastrointestinal hemorrhage, unspecified (2) Unintentional weight loss Status: Acute Code(s): R63.4 - Abnormal weight loss - Plan This patient is a 57-year-old male with a past medical history significant for COPD, Stern's esophagus and EtOH abuse. Patient presented to the emergency room on 08/03/2018 via EMS. Patient was noted to be complaining of generalized weakness with hypoglycemia-blood sugar 50. Patient was treated for same by EMS and reported that he has been feeling generally weak for 3-4 days and endorses having black tarry stools and occasional vomiting with small amounts of bright red blood noted. Patient denies shortness of breath or chest pain. Denies diarrhea or constipation. Patient states he has had weight loss of approximately 15 pounds in the last 6 months. Our service has been consulted to evaluate patient's GI bleeding. On consultation patient states he has had 1 to 2 black tarry stools daily for the last 3-4 days with occasional vomiting that has small amount of bright red blood noted. He reports that he normally has 1-2 bowel movements that are soft brown daily without any noted bleeding. Patient states he drinks a 6 pack of beer every 3 days along with shots of hard liquor. Patient unsure of the dates of last EGD and colonoscopy. Denies any known family history of gastrointestinal diseases/disorders. States that he has occasional heartburn and notices some difficulty eating pieces of solid meat. He states "sometimes it feels stuck". Patient denies odynophagia. Patient denies any difficulty with liquids or medications. Denies any use of prescription Meds, reports occasional use of Advil for headaches and joint pain. GI bleed Patient presenting with report of 3-4-day history of black tarry stools, endorses history of Stern's esophagus along with EtOH abuse. Hemoglobin 9.7 hematocrit 28.1 platelet count 83 INR 1.3 total bilirubin 3.2 AST 122 ALT 60 alk phos 179. Unintentional weight loss Patient reports 15 pound weight loss in the 6-month time span. States occasional difficulty swallowing solid pieces of food times 6 months. Plan -N.p.o. -Obtain consent for EGD -EGD today -Continue PPI -IV hydration -Monitor for bleeding -Notify GI for any active bleeding -Supportive care -Avoid anticoagulants, NSAIDs, aspirin -Further recommendations to follow This patient has been seen by myself and Dr. Morales and this note is written on his behalf <Vicki Acuna - Last Filed: 08/04/18 10:38> (1) GI bleed Status: Acute Code(s): K92.2 - Gastrointestinal hemorrhage, unspecified (2) Unintentional weight loss Status: Acute Code(s): R63.4 - Abnormal weight loss - Plan Patient seen and examined Agree with above Continue with current supportive care Monitor labs Avoid alcohol, patient noted to have alcoholism with mild alcoholic hepatitis We will proceed with upper endoscopy next to further evaluate the GI bleed, anemia, melena, weight loss <Gurdeep Morales - Last Filed: 08/04/18 16:56>
[2018-08-04] MEDS: Potassium Chloride Inj 10 MEQ in Dextrose 5% in Water Inj 1,000 ML IV.CONT SCH ×2 (13:02)
[2018-08-04] MEDS: Multivit/Folic Acid/Minerals Chewable Tablets CHEW SCH (15:13)
--- NOTE | 2018-08-04 15:35 | P.DIET ---
Nutritional Evaluation Type of nutrition evaluation: initial Nutrition consult regarding: Diet Evaluation Nutrition screening: Poor PO Intake Subjective Subjective Comments: Pt reported poor appetite and did not eat for a few days per MD note. Pt also mentions he had been losing wt unintentionally. Pt currently NPO for pending EGD. Objective - Diagnosis GI bleed, hyperbilirubinemia - Objective Body Mass Index: 15.4 % IBW: 63 (IBW = 208lb) Body Weight Used for Calculations: Actual Energy Needs - Lower Range (kCal/kg): 30 Energy Needs - Upper Range (kCal/kg): 35 Lower Limit kCal/kg (kCals): 1,769 Upper Limit kCal/kg (kCals): 2,064 Lower Limit Protein Factor (Grams per Kg): 1.2 Upper Limit Protein Factor (Grams per Kg): 1.5 Lower Protein Needs (Protein): 71 Upper Protein Needs (Protein): 88 Fluid Factor (ml/kg): 30 Estimated Fluid Needs (ml): 1,769 Dietitian Reviewed in Medical Record: Current diet, Curent medications, Intake & Output, Labs, Medical history Diet Order: NPO Oral Diet Intake Amount: Poor <50% Speech Therapy Recommendations: No Objective Comments: PMH: Stern's esophagus, chronic pancreatitis, COPD, fatty liver, alcohol abuse , rectal prolapse Meds: Haldol, lorazepam, MVI w/ folic acid and vit C, vit B1 Labs: K+ 2.7, Cr 0.48, random glucose 47, Ca+ 7.1 Assessment Assessment: Pt currently at nutritional risk r/t reported poor PO intake. Pt is NPO d/t pending EGD. RD will monitor NPO status. Will assess pts nutritional needs for a PO supplement as necessary. Labs reviewed. Dietitian following. Recommendations: 1. Monitor NPO status 2. Will assess pts nutritional needs for a PO supplement as necessary 3. Dietitian following. Dietitian to Monitor: Lab values, Intake & Output, Weight change, Diet advancement, Medical course
[2018-08-04] MEDS ORDERED: Lidocaine PF 1% Inj 5 ML Syringe OTHER ONE (16:00)
--- NOTE | 2018-08-04 16:59 | P.PCN ---
Date of procedure: 08/04/18 Pre-op diagnosis: GI bleed, melena, anemia, weight loss Procedure: PROCEDURE PERFORMED EGD with biopsy PROCEDURE: The procedure, risks and benefits were discussed with Patient/POA and informed consent was obtained. Anesthesia sedated Patient with Diprivan. Patient was placed in the left lateral decubitus position. EGD: The Pentax videoscope was introduced through the oropharynx and advanced to the second portion of the duodenum under direct visualization. Retroflexion was performed in the stomach. FINDINGS: The esophagus this was unremarkable except for a short segment of Stern's at the distal end measuring less than 1 cm this was biopsied The stomach there was some mild patchy erythema in the antrum but no ulcerations no erosions no blood or bleeding antral biopsies were taken for further evaluation The duodenum this was normal ESTIMATED BLOOD LOSS: None SPECIMENS REMOVED: Esophageal and gastric biopsies COMPLICATIONS: None IMPRESSION: Short segment Stern's esophagus Mild gastritis PLAN: Await biopsies Continue with pantoprazole 40 mg daily EGD in 2 years Advance diet as tolerated Anesthesia: MAC Surgeon: Gurdeep Morales Condition: stable Disposition: floor
[2018-08-04 21:59] LABS: INR 1.3 Ratio
[2018-08-05] MEDS: Pantoprazole Inj 80 MG in Sodium Chlor 0.9% Inj 100 ML IV.CONT SCH ×2 (01:09→11:01)
[2018-08-05] MEDS: Potassium Chloride Inj 10 MEQ in Dextrose 5% in Water Inj 1,000 ML IV.CONT SCH ×2 (02:33)
[2018-08-05 05:09] LABS: Baso % (Auto) 0.2 % (0.0-2.0); Eos % (Auto) 0.6 % (0.0-4.0); Hematocrit 26.1 % (39.0-51.0); Hemoglobin 9.1 gm/dL (13.0-17.0); Lymph # (Auto) 0.7 th/mm3 (1.0-4.8); Lymph % (Auto) 11.5 % (9.0-44.0); Mean Corpuscular HGB Conc 34.8 % (32.0-36.0); Mean Corpuscular Hemoglobin 40.8 pg (27.0-34.0); Mean Corpuscular Volume 117.1 fL (80.0-100.0); Mean Platelet Volume 9.2 fL (7.0-11.0); Mono # (Auto) 0.3 th/mm3 (0.0-0.9); Mono % (Auto) 5.7 % (0.0-8.0); Neut # (Auto) 4.8 th/mm3 (1.8-7.7); Platelet Count 77 th/mm3 (150-450); Red Blood Count 2.23 mil/mm3 (4.50-5.90); Red Cell Distribution Width 15.5 % (11.6-17.2); White Blood Count 5.8 th/mm3 (4.0-11.0)
[2018-08-05 05:39] LABS: Anion Gap 8 meq/L (5-15); Blood Urea Nitrogen 2 mg/dL (7-18); Calcium 7.1 mg/dL (8.5-10.1); Carbon Dioxide 31.3 meq/L (21.0-32.0); Chloride 96 meq/L (98-107); Glomerular Filtration Rate Greater Than 89 mL/min (>89); Glucose,Random 140 mg/dL (74-106); Sodium 135 meq/L (136-145)
[2018-08-05 05:53] LABS: Ovalocytes 1+; Platelet Morphology Normal (Normal); Stomatocytes 2+
[2018-08-05 06:07] LABS: Potassium 2.8 meq/L (3.5-5.1)
[2018-08-05 06:40] LABS: Total Protein 4.7 g/dL (6.4-8.2)
[2018-08-05] MEDS: Potassium Chlor 20 mEq Premix 20 MEQ/100 ML PIGGYBACK IV.SIG SCH ×2 (07:28→15:32)
[2018-08-05] MEDS ORDERED: Potassium Chloride 25 MEQ Effervescent Tablet PO ONE (07:33)
[2018-08-05] MEDS ORDERED: Magnesium Oxide 400 MG Tablet PO ONE (07:36)
[2018-08-05] MEDS: Sodium Chloride 0.9% 2 ML Flush BID IV.FLUSH SCH ×2 (08:21→21:39)
[2018-08-05] MEDS: Multivit/Folic Acid/Minerals Chewable Tablets CHEW SCH (08:21)
--- NOTE | 2018-08-05 08:50 | P.PNGI ---
Subjective Interval history: Eyes open answering simple questions, appears to continue to have generalized weakness and fatigue as well as frail Small formed dark stool sent for Hemoccult possible melena, hemoglobin 9.1, last PT/INR 1.3 patient is status post EGD <Kaya Bunch - Last Filed: 08/05/18 14:47> Interval history: Patient was seen and examined, agree with above note, continue current care, diet as tolerated, monitor H&H <Maddy Amaya - Last Filed: 08/05/18 18:09> Physical Exam Vital signs: Vital Signs 08/04/18 11:34 08/04/18 16:29 08/04/18 16:44 Temperature 97.9 F 97.0 F L Pulse Rate 68 54 L 58 L Respiratory Rate 16 16 18 Blood Pressure 92/65 L 91/53 L 105/60 Pulse Oximetry 97 100 97 08/04/18 16:58 08/04/18 20:00 08/05/18 00:00 Temperature 98.1 F 98.7 F Pulse Rate 59 L 70 67 Respiratory Rate 18 17 14 Blood Pressure 113/57 L 121/70 115/54 L Pulse Oximetry 97 96 96 08/05/18 04:00 08/05/18 08:00 Temperature 98.4 F 98.2 F Pulse Rate 63 Respiratory Rate 12 12 Blood Pressure 114/51 L 92/50 L Pulse Oximetry 97 97 Intake & Output 08/04/18 08/05/18 08/05/18 18:59 06:59 18:59 Intake Total 800 / 800 1005 / 1005 305 / 305 Output Total 1000 / 1000 600 / 600 Balance 800 / 800 5 / 5 -295 / -295 Intake: IV 500 / 500 1005 / 1005 305 / 305 Protonix Inj 80 MG In NS Inj 100 / 100 100 ML @ 10 mls/hr IV.CONT CONT GILMAR Rx#:[id number] KCl Inj 10 MEQ In D5W Inj 1,000 1005 / 1005 ML @ 84 mls/hr IV.CONT . [id number] GILMAR Rx#:[id number] NS Inj 1,000 ML @ 100 mls/hr IV 100 / 100 .CONT .Q10H GILMAR Rx#:[id number] Magnesium Sulfate 1 gm/D5W 100 100 / 100 ml Premix 100 ML @ 100 mls/hr IV.SIG ONCE ONE Rx#:[id number] KCl 20 mEq Premix Inj 20 meq In 200 / 200 100 ml @ 50 mls/hr IV.SIG Q2H GILMAR Rx#:[id number] Anesthesia Amount 300 / 300 Output: Urine 1000 / 1000 600 / 600 Other: # Voids 3 # Incontinent Voids 0 Date of Last Bowel Movement 08/02/18 - Constitutional mild distress, thin, cachectic, disheveled, cooperative - Routine HEENT Exam ENT: Present: mucous membranes dry - Routine Respiratory Exam Present: accessory muscle use - Routine Cardiovascular Exam Present: S1, S2 - Routine Abdominal Exam Present: soft, normoactive bowel sounds (Soft bowel sounds no obvious tenderness , mild left mid quadrant discomfort to light palpation, no BM times 4 days could be constipation related) <Kaya Bunch - Last Filed: 08/05/18 14:47> Vital signs: Vital Signs 08/04/18 20:00 08/05/18 00:00 08/05/18 04:00 Temperature 98.1 F 98.7 F 98.4 F Pulse Rate 70 67 Respiratory Rate 17 14 12 Blood Pressure 121/70 115/54 L 114/51 L Pulse Oximetry 96 96 97 08/05/18 08:00 08/05/18 09:00 08/05/18 11:43 Temperature 98.2 F 98.6 F Pulse Rate 63 66 69 Respiratory Rate 12 16 Blood Pressure 92/50 L 104/52 L Pulse Oximetry 97 95 Intake & Output 08/04/18 08/05/18 08/05/18 18:59 06:59 18:59 Intake Total 800 / 800 1005 / 1005 505 / 505 Output Total 1000 / 1000 1000 / 1000 Balance 800 / 800 5 / 5 -495 / -495 Intake: IV 500 / 500 1005 / 1005 505 / 505 Protonix Inj 80 MG In NS Inj 100 / 100 100 / 100 100 ML @ 10 mls/hr IV.CONT Q10H GILMAR Rx#:[id number] KCl Inj 10 MEQ In D5W Inj 1,000 1005 / 1005 ML @ 84 mls/hr IV.CONT . [id number] GILMAR Rx#:[id number] NS Inj 1,000 ML @ 100 mls/hr IV 100 / 100 .CONT .Q10H GILMAR Rx#:[id number] Magnesium Sulfate 1 gm/D5W 100 100 / 100 ml Premix 100 ML @ 100 mls/hr IV.SIG ONCE ONE Rx#:[id number] KCl 20 mEq Premix Inj 20 meq In 200 / 200 100 / 100 100 ml @ 50 mls/hr IV.SIG Q2H GILMAR Rx#:[id number] Anesthesia Amount 300 / 300 Output: Urine 1000 / 1000 1000 / 1000 Other: # Voids 3 2 # Incontinent Voids 0 Date of Last Bowel Movement 08/02/18 08/05/18 <Maddy Amaya - Last Filed: 08/05/18 18:09> Results - Labs CBC & Chem 7: 08/05/18 03:50 08/05/18 10:40 Laboratory Results - last 24 hr 08/04/18 08/04/18 08/04/18 08:07 08:17 08:17 WBC 6.2 RBC 2.41 L Hgb 9.7 L Hct 28.1 L MCV 116.7 H D MCH 40.4 H MCHC 34.6 RDW 16.0 Plt Count 83 L MPV 9.2 Prelim Diff (Auto) Slide review pending Neut % (Auto) 80.3 H Lymph % (Auto) 12.0 Citrus % (Auto) 6.5 Eos % (Auto) 0.7 Baso % (Auto) 0.5 Neut # (Auto) 5.0 Lymph # (Auto) 0.7 L [place] # (Auto) 0.4 Eos # (Auto) 0.0 Baso # (Auto) 0.0 WBC Differential Manual diff final Diff Scan Seg Neuts % (Manual) 83 H Band Neuts % (Manual) 7 H Lymphocytes % (Manual) 8 L Monocytes % (Manual) 2 Abs Neuts (Manual) 5.6 Differential Comment . Platelet Estimate Low L Platelet Morphology Normal Ovalocytes Stomatocytes PT INR Sodium 136 Potassium 2.7 L* D Chloride 97 L Carbon Dioxide 23.5 Anion Gap 16 H BUN 8 Creatinine 0.48 L Estimated GFR Greater than 89 POC Glucose Random Glucose 47 L* Calcium 7.1 L* D Prot Corrected Calcium 8.2 L Phosphorus 2.6 Cancelled Magnesium 1.6 Total Bilirubin 3.2 H AST 122 H ALT 60 Alkaline Phosphatase 179 H Total Protein 5.0 L D Albumin 2.0 L D TSH 08/04/18 08/04/18 08/04/18 08:17 09:15 11:18 WBC RBC Hgb Hct MCV MCH MCHC RDW Plt Count MPV Prelim Diff (Auto) Neut % (Auto) Lymph % (Auto) [place] % (Auto) Eos % (Auto) Baso % (Auto) Neut # (Auto) Lymph # (Auto) [place] # (Auto) Eos # (Auto) Baso # (Auto) WBC Differential Diff Scan Seg Neuts % (Manual) Band Neuts % (Manual) Lymphocytes % (Manual) Monocytes % (Manual) Abs Neuts (Manual) Differential Comment Platelet Estimate Platelet Morphology Ovalocytes Stomatocytes PT INR Sodium Potassium Chloride Carbon Dioxide Anion Gap BUN Creatinine Estimated GFR POC Glucose 66 L 92 Random Glucose Calcium Prot Corrected Calcium Phosphorus Magnesium Total Bilirubin AST ALT Alkaline Phosphatase Total Protein Albumin TSH 2.450 08/04/18 08/04/18 08/04/18 18:25 21:30 21:30 WBC RBC Hgb Hct MCV MCH MCHC RDW Plt Count MPV Prelim Diff (Auto) Neut % (Auto) Lymph % (Auto) [place] % (Auto) Eos % (Auto) Baso % (Auto) Neut # (Auto) Lymph # (Auto) [place] # (Auto) Eos # (Auto) Baso # (Auto) WBC Differential Diff Scan Seg Neuts % (Manual) Band Neuts % (Manual) Lymphocytes % (Manual) Monocytes % (Manual) Abs Neuts (Manual) Differential Comment Platelet Estimate Platelet Morphology Ovalocytes Stomatocytes PT 13.0 H INR 1.3 Sodium Potassium 2.7 L* Chloride Carbon Dioxide Anion Gap BUN Creatinine Estimated GFR POC Glucose 82 Random Glucose Calcium Prot Corrected Calcium Phosphorus Magnesium Total Bilirubin AST ALT Alkaline Phosphatase Total Protein Albumin TSH 08/04/18 08/05/18 08/05/18 23:39 03:50 03:50 WBC 5.8 RBC 2.23 L Hgb 9.1 L Hct 26.1 L MCV 117.1 H MCH 40.8 H MCHC 34.8 RDW 15.5 Plt Count 77 L MPV 9.2 Prelim Diff (Auto) Slide review pending Neut % (Auto) 82.0 H Lymph % (Auto) 11.5 [place] % (Auto) 5.7 Eos % (Auto) 0.6 Baso % (Auto) 0.2 Neut # (Auto) 4.8 Lymph # (Auto) 0.7 L [place] # (Auto) 0.3 Eos # (Auto) 0.0 Baso # (Auto) 0.0 WBC Differential . Diff Scan Auto diff confirmed Seg Neuts % (Manual) Band Neuts % (Manual) Lymphocytes % (Manual) Monocytes % (Manual) Abs Neuts (Manual) Differential Comment . Platelet Estimate Low L Platelet Morphology Normal Ovalocytes 1+ H Stomatocytes 2+ H PT INR Sodium 135 L Potassium 2.8 L* Chloride 96 L Carbon Dioxide 31.3 Anion Gap 8 BUN 2 L Creatinine 0.45 L Estimated GFR Greater than 89 POC Glucose 121 H Random Glucose 140 H Calcium 7.1 L* Prot Corrected Calcium 8.4 L Phosphorus Magnesium Total Bilirubin AST ALT Alkaline Phosphatase Total Protein 4.7 L Albumin TSH 08/05/18 08/05/18 03:50 07:53 WBC RBC Hgb Hct MCV MCH MCHC RDW Plt Count MPV Prelim Diff (Auto) Neut % (Auto) Lymph % (Auto) [place] % (Auto) Eos % (Auto) Baso % (Auto) Neut # (Auto) Lymph # (Auto) [place] # (Auto) Eos # (Auto) Baso # (Auto) WBC Differential Diff Scan Seg Neuts % (Manual) Band Neuts % (Manual) Lymphocytes % (Manual) Monocytes % (Manual) Abs Neuts (Manual) Differential Comment Platelet Estimate Platelet Morphology Ovalocytes Stomatocytes PT INR Sodium Potassium Chloride Carbon Dioxide Anion Gap BUN Creatinine Estimated GFR POC Glucose 163 H Random Glucose Calcium Prot Corrected Calcium Phosphorus Magnesium 1.5 Total Bilirubin AST ALT Alkaline Phosphatase Total Protein Albumin TSH <AliviaAlineKaya M - Last Filed: 08/05/18 14:47> - Labs CBC & Chem 7: 08/05/18 03:50 08/05/18 16:12 Laboratory Results - last 24 hr 08/04/18 08/04/18 08/04/18 18:25 21:30 21:30 WBC RBC Hgb Hct MCV MCH MCHC RDW Plt Count MPV Prelim Diff (Auto) Neut % (Auto) Lymph % (Auto) [place] % (Auto) Eos % (Auto) Baso % (Auto) Neut # (Auto) Lymph # (Auto) [place] # (Auto) Eos # (Auto) Baso # (Auto) WBC Differential Diff Scan Differential Comment Platelet Estimate Platelet Morphology Ovalocytes Stomatocytes PT 13.0 H INR 1.3 Sodium Potassium 2.7 L* Chloride Carbon Dioxide Anion Gap BUN Creatinine Estimated GFR POC Glucose 82 Random Glucose Calcium Prot Corrected Calcium Phosphorus Magnesium Iron TIBC % Saturation Ferritin Total Protein 08/04/18 08/05/18 08/05/18 23:39 03:50 03:50 WBC 5.8 RBC 2.23 L Hgb 9.1 L Hct 26.1 L MCV 117.1 H MCH 40.8 H MCHC 34.8 RDW 15.5 Plt Count 77 L MPV 9.2 Prelim Diff (Auto) Slide review pending Neut % (Auto) 82.0 H Lymph % (Auto) 11.5 [place] % (Auto) 5.7 Eos % (Auto) 0.6 Baso % (Auto) 0.2 Neut # (Auto) 4.8 Lymph # (Auto) 0.7 L [place] # (Auto) 0.3 Eos # (Auto) 0.0 Baso # (Auto) 0.0 WBC Differential . Diff Scan Auto diff confirmed Differential Comment . Platelet Estimate Low L Platelet Morphology Normal Ovalocytes 1+ H Stomatocytes 2+ H PT INR Sodium 135 L Potassium 2.8 L* Chloride 96 L Carbon Dioxide 31.3 Anion Gap 8 BUN 2 L Creatinine 0.45 L Estimated GFR Greater than 89 POC Glucose 121 H Random Glucose 140 H Calcium 7.1 L* Prot Corrected Calcium 8.4 L Phosphorus Magnesium Iron TIBC % Saturation Ferritin Total Protein 4.7 L 08/05/18 08/05/18 08/05/18 03:50 07:53 10:40 WBC RBC Hgb Hct MCV MCH MCHC RDW Plt Count MPV Prelim Diff (Auto) Neut % (Auto) Lymph % (Auto) [place] % (Auto) Eos % (Auto) Baso % (Auto) Neut # (Auto) Lymph # (Auto) [place] # (Auto) Eos # (Auto) Baso # (Auto) WBC Differential Diff Scan Differential Comment Platelet Estimate Platelet Morphology Ovalocytes Stomatocytes PT INR Sodium Potassium 3.1 L Chloride Carbon Dioxide Anion Gap BUN Creatinine Estimated GFR POC Glucose 163 H Random Glucose Calcium Prot Corrected Calcium Phosphorus Magnesium 1.5 Iron TIBC % Saturation Ferritin Total Protein 08/05/18 08/05/18 08/05/18 12:11 16:12 16:12 WBC RBC Hgb Hct MCV MCH MCHC RDW Plt Count MPV Prelim Diff (Auto) Neut % (Auto) Lymph % (Auto) [place] % (Auto) Eos % (Auto) Baso % (Auto) Neut # (Auto) Lymph # (Auto) [place] # (Auto) Eos # (Auto) Baso # (Auto) WBC Differential Diff Scan Differential Comment Platelet Estimate Platelet Morphology Ovalocytes Stomatocytes PT 11.5 INR 1.1 Sodium Potassium 4.0 D Chloride Carbon Dioxide Anion Gap BUN Creatinine Estimated GFR POC Glucose 216 H Random Glucose Calcium Prot Corrected Calcium Phosphorus 1.7 L Magnesium Iron 24 L TIBC 129 L % Saturation 18.6 L Ferritin 1750 H Total Protein 08/05/18 16:20 WBC RBC Hgb Hct MCV MCH MCHC RDW Plt Count MPV Prelim Diff (Auto) Neut % (Auto) Lymph % (Auto) [place] % (Auto) Eos % (Auto) Baso % (Auto) Neut # (Auto) Lymph # (Auto) [place] # (Auto) Eos # (Auto) Baso # (Auto) WBC Differential Diff Scan Differential Comment Platelet Estimate Platelet Morphology Ovalocytes Stomatocytes PT INR Sodium Potassium Chloride Carbon Dioxide Anion Gap BUN Creatinine Estimated GFR POC Glucose 187 H Random Glucose Calcium Prot Corrected Calcium Phosphorus Magnesium Iron TIBC % Saturation Ferritin Total Protein <Maddy Amaya - Last Filed: 08/05/18 18:09> Assessment and Plan (1) GI bleed Status: Acute Code(s): K92.2 - Gastrointestinal hemorrhage, unspecified (2) Unintentional weight loss Status: Acute Code(s): R63.4 - Abnormal weight loss - Plan GI bleed Patient presenting with report of 3-4-day history of black tarry stools, endorses history of Stern's esophagus along with EtOH abuse. Hemoglobin 9.7 hematocrit 28.1 platelet count 83 INR 1.3 total bilirubin 3.2 AST 122 ALT 60 alk phos 179. Unintentional weight loss Patient reports 15 pound weight loss in the 6-month time span. States occasional difficulty swallowing solid pieces of food times 6 months. 08/05/2018 mild alcohol hepatitis Status post EGD performed on 04/04/2018, findings include Short segment Stern's esophagus Mild gastritis Dark melena stools, last one seen on 08/05/2018 hemoglobin 9.1 mild decrease but need to continue to monitor Generalized weakness and fatigue as well as some fragility Anemia hemoglobin 9.1 Constipation no BM times 4 days, with bowel movement today noted dark stool probably melena Left-sided abdominal pain probably related to some constipation Mild coagulopathy probably related to alcohol PLAN: Diet as tolerated biopsies pending pantoprazole 40 mg daily Bowel regimen daily Alcohol abstinence EGD, repeat in 2 years Monitor labs and symptoms Patient was seen per myself and Dr. Amaya, note was written on his behalf <Kaya Bunch - Last Filed: 08/05/18 14:47> (1) GI bleed Status: Acute Code(s): K92.2 - Gastrointestinal hemorrhage, unspecified (2) Unintentional weight loss Status: Acute Code(s): R63.4 - Abnormal weight loss <Maddy Amaya - Last Filed: 08/05/18 18:09>
--- NOTE | 2018-08-05 09:09 | P.PN ---
Subjective Interval history: Follow up on patient with GIB. Patient seen and examined. Patient is tolerating liquid diet. He is asking if he can eat food. He denies any nausea , vomiting or abdominal pain. He says he feels better. He has not had a bowel movement in 4 days but has been eating very little. He says he is very weak. He denies any fever or chills. He denies any chest pain or dyspnea. Physical Exam Vital signs: Vital Signs 08/04/18 11:34 08/04/18 16:29 08/04/18 16:44 Temperature 97.9 F 97.0 F L Pulse Rate 68 54 L 58 L Respiratory Rate 16 16 18 Blood Pressure 92/65 L 91/53 L 105/60 Pulse Oximetry 97 100 97 08/04/18 16:58 08/04/18 20:00 08/05/18 00:00 Temperature 98.1 F 98.7 F Pulse Rate 59 L 70 67 Respiratory Rate 18 17 14 Blood Pressure 113/57 L 121/70 115/54 L Pulse Oximetry 97 96 96 08/05/18 04:00 08/05/18 08:00 Temperature 98.4 F 98.2 F Pulse Rate 63 Respiratory Rate 12 12 Blood Pressure 114/51 L 92/50 L Pulse Oximetry 97 97 Intake & Output 08/04/18 08/05/18 08/05/18 18:59 06:59 18:59 Intake Total 800 / 800 1005 / 1005 305 / 305 Output Total 1000 / 1000 600 / 600 Balance 800 / 800 5 / 5 -295 / -295 Intake: IV 500 / 500 1005 / 1005 305 / 305 Protonix Inj 80 MG In NS Inj 100 / 100 100 ML @ 10 mls/hr IV.CONT CONT [facility] Rx#:[id number] KCl Inj 10 MEQ In D5W Inj 1,000 1005 / 1005 ML @ 84 mls/hr IV.CONT . [id number] [facility] Rx#:[id number] NS Inj 1,000 ML @ 100 mls/hr IV 100 / 100 .CONT .Q10H [facility] Rx#:[id number] Magnesium Sulfate 1 gm/D5W 100 100 / 100 ml Premix 100 ML @ 100 mls/hr IV.SIG ONCE ONE Rx#:[id number] KCl 20 mEq Premix Inj 20 meq In 200 / 200 100 ml @ 50 mls/hr IV.SIG Q2H [facility] Rx#:[id number] Anesthesia Amount 300 / 300 Output: Urine 1000 / 1000 600 / 600 Other: # Voids 3 # Incontinent Voids 0 Date of Last Bowel Movement 08/02/18 Narrative: GENERAL: Extremely thin, cachetic appearing male patient. Appears much older than stated age. Awake and alert. In no acute distress. SKIN: Warm and dry. +superficial skin breakdown noted over bony prominence of right hip and upper coccyx. +Small blister noted on right second toe. HEENT: Atraumatic. Normocephalic. Pupils equal and round. No scleral icterus. No injection or drainage. No nasal bleeding or discharge. Mucous membranes pink and moist. Poor dentition. NECK: Trachea midline. CARDIOVASCULAR: Regular rate and rhythm. RESPIRATORY: No accessory muscle use. Clear to auscultation. Fair air entry. Breath sounds equal bilaterally. GASTROINTESTINAL: Abdomen soft, non-tender, nondistended. +BS. MUSCULOSKELETAL: Extremities without clubbing, cyanosis, or edema. No obvious deformities. NEUROLOGICAL: Awake and alert. No obvious cranial nerve deficits. Motor grossly within normal limits. Able to move all extremities spontaneously. Normal speech. PSYCHIATRIC: Calm and cooperative. Results - Labs CBC & Chem 7: 08/05/18 03:50 08/05/18 10:40 Laboratory Results - last 24 hr 08/04/18 08/04/18 08/04/18 08:07 08:17 08:17 WBC RBC Hgb Hct MCV MCH MCHC RDW Plt Count MPV Prelim Diff (Auto) Neut % (Auto) Lymph % (Auto) [place] % (Auto) Eos % (Auto) Baso % (Auto) Neut # (Auto) Lymph # (Auto) [place] # (Auto) Eos # (Auto) Baso # (Auto) WBC Differential Manual diff final Diff Scan Seg Neuts % (Manual) 83 H Band Neuts % (Manual) 7 H Lymphocytes % (Manual) 8 L Monocytes % (Manual) 2 Abs Neuts (Manual) 5.6 Differential Comment Platelet Estimate Low L Platelet Morphology Normal Ovalocytes Stomatocytes PT INR Sodium 136 Potassium 2.7 L* D Chloride 97 L Carbon Dioxide 23.5 Anion Gap 16 H BUN 8 Creatinine 0.48 L Estimated GFR Greater than 89 POC Glucose Random Glucose 47 L* Calcium 7.1 L* D Prot Corrected Calcium 8.2 L Phosphorus 2.6 Magnesium 1.6 Total Bilirubin 3.2 H AST 122 H ALT 60 Alkaline Phosphatase 179 H Total Protein 5.0 L D Albumin 2.0 L D TSH 2.450 08/04/18 08/04/18 08/04/18 09:15 11:18 18:25 WBC RBC Hgb Hct MCV MCH MCHC RDW Plt Count MPV Prelim Diff (Auto) Neut % (Auto) Lymph % (Auto) [place] % (Auto) Eos % (Auto) Baso % (Auto) Neut # (Auto) Lymph # (Auto) [place] # (Auto) Eos # (Auto) Baso # (Auto) WBC Differential Diff Scan Seg Neuts % (Manual) Band Neuts % (Manual) Lymphocytes % (Manual) Monocytes % (Manual) Abs Neuts (Manual) Differential Comment Platelet Estimate Platelet Morphology Ovalocytes Stomatocytes PT INR Sodium Potassium Chloride Carbon Dioxide Anion Gap BUN Creatinine Estimated GFR POC Glucose 66 L 92 82 Random Glucose Calcium Prot Corrected Calcium Phosphorus Magnesium Total Bilirubin AST ALT Alkaline Phosphatase Total Protein Albumin TSH 08/04/18 08/04/18 08/04/18 21:30 21:30 23:39 WBC RBC Hgb Hct MCV MCH MCHC RDW Plt Count MPV Prelim Diff (Auto) Neut % (Auto) Lymph % (Auto) [place] % (Auto) Eos % (Auto) Baso % (Auto) Neut # (Auto) Lymph # (Auto) [place] # (Auto) Eos # (Auto) Baso # (Auto) WBC Differential Diff Scan Seg Neuts % (Manual) Band Neuts % (Manual) Lymphocytes % (Manual) Monocytes % (Manual) Abs Neuts (Manual) Differential Comment Platelet Estimate Platelet Morphology Ovalocytes Stomatocytes PT 13.0 H INR 1.3 Sodium Potassium 2.7 L* Chloride Carbon Dioxide Anion Gap BUN Creatinine Estimated GFR POC Glucose 121 H Random Glucose Calcium Prot Corrected Calcium Phosphorus Magnesium Total Bilirubin AST ALT Alkaline Phosphatase Total Protein Albumin TSH 08/05/18 08/05/18 08/05/18 03:50 03:50 03:50 WBC 5.8 RBC 2.23 L Hgb 9.1 L Hct 26.1 L MCV 117.1 H MCH 40.8 H MCHC 34.8 RDW 15.5 Plt Count 77 L MPV 9.2 Prelim Diff (Auto) Slide review pending Neut % (Auto) 82.0 H Lymph % (Auto) 11.5 [place] % (Auto) 5.7 Eos % (Auto) 0.6 Baso % (Auto) 0.2 Neut # (Auto) 4.8 Lymph # (Auto) 0.7 L [place] # (Auto) 0.3 Eos # (Auto) 0.0 Baso # (Auto) 0.0 WBC Differential . Diff Scan Auto diff confirmed Seg Neuts % (Manual) Band Neuts % (Manual) Lymphocytes % (Manual) Monocytes % (Manual) Abs Neuts (Manual) Differential Comment . Platelet Estimate Low L Platelet Morphology Normal Ovalocytes 1+ H Stomatocytes 2+ H PT INR Sodium 135 L Potassium 2.8 L* Chloride 96 L Carbon Dioxide 31.3 Anion Gap 8 BUN 2 L Creatinine 0.45 L Estimated GFR Greater than 89 POC Glucose Random Glucose 140 H Calcium 7.1 L* Prot Corrected Calcium 8.4 L Phosphorus Magnesium 1.5 Total Bilirubin AST ALT Alkaline Phosphatase Total Protein 4.7 L Albumin TSH 08/05/18 07:53 WBC RBC Hgb Hct MCV MCH MCHC RDW Plt Count MPV Prelim Diff (Auto) Neut % (Auto) Lymph % (Auto) [place] % (Auto) Eos % (Auto) Baso % (Auto) Neut # (Auto) Lymph # (Auto) [place] # (Auto) Eos # (Auto) Baso # (Auto) WBC Differential Diff Scan Seg Neuts % (Manual) Band Neuts % (Manual) Lymphocytes % (Manual) Monocytes % (Manual) Abs Neuts (Manual) Differential Comment Platelet Estimate Platelet Morphology Ovalocytes Stomatocytes PT INR Sodium Potassium Chloride Carbon Dioxide Anion Gap BUN Creatinine Estimated GFR POC Glucose 163 H Random Glucose Calcium Prot Corrected Calcium Phosphorus Magnesium Total Bilirubin AST ALT Alkaline Phosphatase Total Protein Albumin TSH - Procedures Date of procedure: 08/04/18 Pre-op diagnosis: GI bleed, melena, anemia, weight loss Procedure: PROCEDURE PERFORMED EGD with biopsy PROCEDURE: The procedure, risks and benefits were discussed with Patient/POA and informed consent was obtained. Anesthesia sedated Patient with Diprivan. Patient was placed in the left lateral decubitus position. EGD: The Pentax videoscope was introduced through the oropharynx and advanced to the second portion of the duodenum under direct visualization. Retroflexion was performed in the stomach. FINDINGS: The esophagus this was unremarkable except for a short segment of Stern's at the distal end measuring less than 1 cm this was biopsied The stomach there was some mild patchy erythema in the antrum but no ulcerations no erosions no blood or bleeding antral biopsies were taken for further evaluation The duodenum this was normal ESTIMATED BLOOD LOSS: None SPECIMENS REMOVED: Esophageal and gastric biopsies COMPLICATIONS: None IMPRESSION: Short segment Stern's esophagus Mild gastritis PLAN: Await biopsies Continue with pantoprazole 40 mg daily EGD in 2 years Advance diet as tolerated Assessment and Plan - Assessment (1) GI bleed Code(s): K92.2 - Gastrointestinal hemorrhage, unspecified Status: Acute (2) Cachectic Code(s): R64 - Cachexia Status: Chronic (3) COPD (chronic obstructive pulmonary disease) Code(s): J44.9 - Chronic obstructive pulmonary disease, unspecified Status: Chronic (4) Weakness Code(s): R53.1 - Weakness Status: Acute (5) Frequent falls Code(s): R29.6 - Repeated falls Status: Acute (6) Unintentional weight loss Code(s): R63.4 - Abnormal weight loss Status: Acute - Plan Patient is a 57-year-old male with a past medical history of COPD, Stern's esophagus and EtOH abuse. He presents to the ED for an evaluation of weakness - per ED report he was found lying on the side of the road and was picked up by EMS. He was found to have a blood sugar of 50 at that time and endorsed that he had not eaten in a few days; given D50 by EMS. He says he has been so weak he could not walk and had multiple falls. He endorses black stool and occasional emesis with some red blood in it. GI bleed, possibly secondary to esophageal varices hx of Barretts esophagus -GI consulted, appreciate assistance. s/p EGD showing mild gastritis and short segment of Stern's esophagus. Repeat EGD in 2 yrs. -Protonix drip started by ED, discontinue. Change to po Protonix 40mg BID. -advance diet and monitor how patient tolerates. Anemia, suspect acute on chronic, multifactorial due to active GIB, ongoing alcohol abuse and suspected liver disease no e/o active bleeding -hgb dropped from 10.4 to 9.7. Continues to drop, hgb 9.1 today -obtain iron studies -continue to monitor H&H. Repeat CBC in am. Hypokalemia K 2.7, Mag 1.6 -IV repletion ordered -repeat BMP in am to monitor response Hypoglycemia, resolved -d/c D5 EtOH abuse -[facility] protocol -Counseled cessation -Thiamine, folic acid, MVI daily -monitor for signs of withdrawal Weakness and unintentional weight loss CT abd/pelvis shows chronic pancreatitis with some calcifications in the head and uncinate process, diffuse hepatic fatty infiltration B12 1258 Hepatitis and HIV panel nonreactive -PT eval/tx - recommends rehab. Patient is self pay. Increase PT to daily. DW Case management. 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 Brar Discharge Planning: Not ready for discharge
[2018-08-05] MEDS ORDERED: Potassium Chlor 20 mEq Premix 20 MEQ/100 ML PIGGYBACK IV.SIG SCH (16:00)
[2018-08-05 16:50] LABS: INR 1.1 Ratio; Prothrombin Time 11.5 sec (9.8-11.6)
[2018-08-05 17:08] LABS: % Iron Saturation 18.6 % (20-50); Phosphorus 1.7 mg/dL (2.5-4.9)
[2018-08-06 04:22] LABS: Baso % (Auto) 0.2 % (0.0-2.0); Eos # (Auto) 0.1 th/mm3 (0.0-0.4); Eos % (Auto) 1.4 % (0.0-4.0); Hematocrit 25.8 % (39.0-51.0); Hemoglobin 8.9 gm/dL (13.0-17.0); Lymph # (Auto) 0.7 th/mm3 (1.0-4.8); Lymph % (Auto) 13.7 % (9.0-44.0); Mean Corpuscular HGB Conc 34.5 % (32.0-36.0); Mean Corpuscular Hemoglobin 40.9 pg (27.0-34.0); Mean Corpuscular Volume 118.8 fL (80.0-100.0); Mean Platelet Volume 9.2 fL (7.0-11.0); Mono # (Auto) 0.5 th/mm3 (0.0-0.9); Mono % (Auto) 9.8 % (0.0-8.0); Neut # (Auto) 3.9 th/mm3 (1.8-7.7); Neut % (Auto) 74.9 % (16.0-70.0); Platelet Count 84 th/mm3 (150-450); Red Blood Count 2.17 mil/mm3 (4.50-5.90); Red Cell Distribution Width 15.5 % (11.6-17.2); White Blood Count 5.3 th/mm3 (4.0-11.0)
[2018-08-06 04:45] LABS: Anion Gap 7 meq/L (5-15); Blood Urea Nitrogen 5 mg/dL (7-18); Calcium 7.7 mg/dL (8.5-10.1); Carbon Dioxide 29.3 meq/L (21.0-32.0); Chloride 103 meq/L (98-107); Glomerular Filtration Rate Greater Than 89 mL/min (>89); Glucose,Random 113 mg/dL (74-106); Magnesium 1.6 mg/dL (1.5-2.5); Phosphorus 1.7 mg/dL (2.5-4.9); Potassium 3.4 meq/L (3.5-5.1); Sodium 139 meq/L (136-145)
--- NOTE | 2018-08-06 07:34 | P.PN ---
Subjective Interval history: Follow-up on patient with GI bleed. Patient seen and examined. Patient denies any acute medical complaints. He denies any nausea, vomiting or abdominal pain. He is tolerating diet well. He denies any chest pain or shortness of breath. Physical Exam Vital signs: Vital Signs 08/05/18 08:00 08/05/18 09:00 08/05/18 11:43 Temperature 98.2 F 98.6 F Pulse Rate 63 66 69 Respiratory Rate 12 16 Blood Pressure 92/50 L 104/52 L Pulse Oximetry 97 95 08/05/18 19:48 08/06/18 00:00 08/06/18 04:00 Temperature 98.8 F 98.2 F 98.7 F Pulse Rate 72 67 72 Respiratory Rate 18 18 16 Blood Pressure 95/65 L 103/69 99/67 L Pulse Oximetry 98 97 95 Intake & Output 08/05/18 08/06/18 08/06/18 18:59 06:59 18:59 Intake Total 505 / 505 340 / 340 Output Total 1000 / 1000 Balance -495 / -495 340 / 340 Weight 58.967 kg Intake: IV 505 / 505 100 / 100 Protonix Inj 80 MG In NS Inj 100 / 100 100 ML @ 10 mls/hr IV.CONT Q10H [facility] Rx#:[id number] KCl 20 mEq Premix Inj 20 meq In 100 / 100 100 / 100 100 ml @ 50 mls/hr IV.SIG Q2H [facility] Rx#:[id number] Oral 240 / 240 Output: Urine 1000 / 1000 Other: # Voids 2 # Urine Diapers 1 Date of Last Bowel Movement 08/05/18 08/05/18 Narrative: GENERAL: Extremely thin, cachetic appearing male patient, INAD. Appears much older than stated age. Awake and alert. SKIN: Warm and dry. +superficial skin breakdown noted over bony prominence of right hip and upper coccyx. +Small blister noted on right second toe. HEENT: Atraumatic. Normocephalic. Pupils equal and round. No scleral icterus. No injection or drainage. No nasal bleeding or discharge. Mucous membranes pink and moist. Poor dentition. NECK: Trachea midline. CARDIOVASCULAR: Regular rate and rhythm. RESPIRATORY: No accessory muscle use. Clear to auscultation. Fair air entry. Breath sounds equal bilaterally. GASTROINTESTINAL: Abdomen soft, non-tender, nondistended. +BS. MUSCULOSKELETAL: Extremities without clubbing, cyanosis, or edema. No obvious deformities. NEUROLOGICAL: Awake and alert. No obvious cranial nerve deficits. Motor grossly within normal limits. Able to move all extremities spontaneously. Normal speech. PSYCHIATRIC: Calm and cooperative. Results - Labs CBC & Chem 7: 08/06/18 03:48 08/06/18 03:48 Laboratory Results - last 24 hr 08/05/18 08/05/18 08/05/18 07:53 10:40 12:11 WBC RBC Hgb Hct MCV MCH MCHC RDW Plt Count MPV Neut % (Auto) Lymph % (Auto) [place] % (Auto) Eos % (Auto) Baso % (Auto) Neut # (Auto) Lymph # (Auto) [place] # (Auto) Eos # (Auto) Baso # (Auto) WBC Differential Differential Comment PT INR Sodium Potassium 3.1 L Chloride Carbon Dioxide Anion Gap BUN Creatinine Estimated GFR POC Glucose 163 H 216 H Random Glucose Calcium Phosphorus Magnesium Iron TIBC % Saturation Ferritin 08/05/18 08/05/18 08/05/18 16:12 16:12 16:20 WBC RBC Hgb Hct MCV MCH MCHC RDW Plt Count MPV Neut % (Auto) Lymph % (Auto) [place] % (Auto) Eos % (Auto) Baso % (Auto) Neut # (Auto) Lymph # (Auto) [place] # (Auto) Eos # (Auto) Baso # (Auto) WBC Differential Differential Comment PT 11.5 INR 1.1 Sodium Potassium 4.0 D Chloride Carbon Dioxide Anion Gap BUN Creatinine Estimated GFR POC Glucose 187 H Random Glucose Calcium Phosphorus 1.7 L Magnesium Iron 24 L TIBC 129 L % Saturation 18.6 L Ferritin 1750 H 08/05/18 08/06/18 08/06/18 21:42 03:48 03:48 WBC 5.3 RBC 2.17 L Hgb 8.9 L Hct 25.8 L MCV 118.8 H MCH 40.9 H MCHC 34.5 RDW 15.5 Plt Count 84 L MPV 9.2 Neut % (Auto) 74.9 H Lymph % (Auto) 13.7 [place] % (Auto) 9.8 H Eos % (Auto) 1.4 Baso % (Auto) 0.2 Neut # (Auto) 3.9 Lymph # (Auto) 0.7 L [place] # (Auto) 0.5 Eos # (Auto) 0.1 Baso # (Auto) 0.0 WBC Differential . Differential Comment Auto diff final PT INR Sodium 139 Potassium 3.4 L Chloride 103 Carbon Dioxide 29.3 Anion Gap 7 BUN 5 L Creatinine 0.41 L Estimated GFR Greater than 89 POC Glucose 155 H Random Glucose 113 H Calcium 7.7 L Phosphorus 1.7 L Magnesium 1.6 Iron TIBC % Saturation Ferritin Microbiology 08/05/18 13:30 Stool Stool Occult Blood ([facility]) - Final Hemoccult negative - Procedures Date of procedure: 08/04/18 Pre-op diagnosis: GI bleed, melena, anemia, weight loss Procedure: PROCEDURE PERFORMED EGD with biopsy PROCEDURE: The procedure, risks and benefits were discussed with Patient/POA and informed consent was obtained. Anesthesia sedated Patient with Diprivan. Patient was placed in the left lateral decubitus position. EGD: The Pentax videoscope was introduced through the oropharynx and advanced to the second portion of the duodenum under direct visualization. Retroflexion was performed in the stomach. FINDINGS: The esophagus this was unremarkable except for a short segment of Stern's at the distal end measuring less than 1 cm this was biopsied The stomach there was some mild patchy erythema in the antrum but no ulcerations no erosions no blood or bleeding antral biopsies were taken for further evaluation The duodenum this was normal ESTIMATED BLOOD LOSS: None SPECIMENS REMOVED: Esophageal and gastric biopsies COMPLICATIONS: None IMPRESSION: Short segment Stern's esophagus Mild gastritis PLAN: Await biopsies Continue with pantoprazole 40 mg daily EGD in 2 years Advance diet as tolerated Assessment and Plan - Assessment (1) GI bleed Code(s): K92.2 - Gastrointestinal hemorrhage, unspecified Status: Acute (2) Cachectic Code(s): R64 - Cachexia Status: Chronic (3) COPD (chronic obstructive pulmonary disease) Code(s): J44.9 - Chronic obstructive pulmonary disease, unspecified Status: Chronic (4) Weakness Code(s): R53.1 - Weakness Status: Acute (5) Frequent falls Code(s): R29.6 - Repeated falls Status: Acute (6) Unintentional weight loss Code(s): R63.4 - Abnormal weight loss Status: Acute - Plan Patient is a 57-year-old male with a past medical history of COPD, Stern's esophagus and EtOH abuse. He presents to the ED for an evaluation of weakness - per ED report he was found lying on the side of the road and was picked up by EMS. He was found to have a blood sugar of 50 at that time and endorsed that he had not eaten in a few days; given D50 by EMS. He says he has been so weak he could not walk and had multiple falls. He endorses black stool and occasional emesis with some red blood in it. GI bleed, possibly secondary to esophageal varices hx of Barretts esophagus tolerating diet -GI consulted, appreciate assistance. s/p EGD showing mild gastritis and short segment of Stern's esophagus. Repeat EGD in 2 yrs. GI has signed off. -Protonix drip started by ED, discontinued. Changed to po Protonix 40mg BID. Anemia, suspect acute on chronic, multifactorial due to active GIB, ongoing alcohol abuse and suspected liver disease no e/o active bleeding stool hemoccult neg -hgb slowly trending down, 10.4 to 8.9 -iron studies: iron 24, TIBC 129, %sat 18.6, ferritin 1750 -continue to monitor H&H. Repeat CBC in am. Hypokalemia K 3.4 -po repletion ordered -repeat BMP in am to monitor response EtOH abuse -[facility] protocol -Counseled cessation -Thiamine, folic acid, MVI daily -monitor for signs of withdrawal Weakness and unintentional weight loss CT abd/pelvis shows chronic pancreatitis with some calcifications in the head and uncinate process, diffuse hepatic fatty infiltration B12 1258 Hepatitis and HIV panel nonreactive -PT eval/tx - recommends rehab. Patient is self pay. Increased PT to daily but patient has not been seen since 08/04. DW Case management. -Consult hemstitcher, appreciate recommendations -added Ensure to diet order TID Thrombocytopenia, suspect secondary to liver disease INR 1.3 -platelets appear stable -INR stable -monitor for any bleeding COPD, not in acute exacerbation Ongoing tobaccoism CXR shows chronic COPD changes but no acute process -continue on nicotine patch -Duonebs prn -monitor respiratory status Hypophosphatemia phos 1.7 -po phosphorus repletion ordered DVT prophylaxis: Chemical prophylaxis contraindicated due to GI bleed; SCDs Code Status: Full Discussed Condition With: patient, nursing staff, Dr. Brar Discharge Planning: Not ready for discharge. Patient is still extremely weak. PT/OT recommending rehab. Patient has no payer source. PT escalated to daily.
[2018-08-06] MEDS ORDERED: Magnesium Oxide 400 MG Tablet PO ONE (07:36)
[2018-08-06] MEDS ORDERED: Ferrous Sulfate 325 MG Tablet PO SCH (09:00)
--- NOTE | 2018-08-06 09:08 | P.PNGI ---
Subjective Interval history: Patient is resting in the bed currently denies any nausea vomiting or abdominal pain continue to monitor hemoglobin for any obvious drops currently 8.9, PT/INR 1.1 Physical Exam Vital signs: Vital Signs 08/05/18 11:43 08/05/18 19:48 08/06/18 00:00 Temperature 98.6 F 98.8 F 98.2 F Pulse Rate 69 72 67 Respiratory Rate 16 18 18 Blood Pressure 104/52 L 95/65 L 103/69 Pulse Oximetry 95 98 97 08/06/18 04:00 08/06/18 08:00 Temperature 98.7 F 98.1 F Pulse Rate 72 74 Respiratory Rate 16 16 Blood Pressure 99/67 L 105/65 Pulse Oximetry 95 96 Intake & Output 08/05/18 08/06/18 08/06/18 18:59 06:59 18:59 Intake Total 505 / 505 340 / 340 Output Total 1000 / 1000 Balance -495 / -495 340 / 340 Weight 58.967 kg Intake: IV 505 / 505 100 / 100 Protonix Inj 80 MG In NS Inj 100 / 100 100 ML @ 10 mls/hr IV.CONT Q10H [facility] Rx#:[id number] KCl 20 mEq Premix Inj 20 meq In 100 / 100 100 / 100 100 ml @ 50 mls/hr IV.SIG Q2H [facility] Rx#:[id number] Oral 240 / 240 Output: Urine 1000 / 1000 Other: # Voids 2 # Urine Diapers 1 Date of Last Bowel Movement 08/05/18 08/05/18 - Constitutional no acute distress - Routine HEENT Exam ENT: Present: mucous membranes moist - Routine Respiratory Exam Present: accessory muscle use (No obvious shortness of breath at rest) - Routine Cardiovascular Exam Present: S1, S2 - Routine Abdominal Exam Present: soft, normoactive bowel sounds (Flat abdomen no distention no abdominal pain to light palpation, BM x1 over the past 24 hours) Results - Labs CBC & Chem 7: 08/06/18 03:48 08/06/18 03:48 Laboratory Results - last 24 hr 08/05/18 08/05/18 08/05/18 10:40 12:11 16:12 WBC RBC Hgb Hct MCV MCH MCHC RDW Plt Count MPV Neut % (Auto) Lymph % (Auto) [place] % (Auto) Eos % (Auto) Baso % (Auto) Neut # (Auto) Lymph # (Auto) [place] # (Auto) Eos # (Auto) Baso # (Auto) WBC Differential Differential Comment PT INR Sodium Potassium 3.1 L 4.0 D Chloride Carbon Dioxide Anion Gap BUN Creatinine Estimated GFR POC Glucose 216 H Random Glucose Calcium Phosphorus 1.7 L Magnesium Iron 24 L TIBC 129 L % Saturation 18.6 L Ferritin 1750 H 08/05/18 08/05/18 08/05/18 16:12 16:20 21:42 WBC RBC Hgb Hct MCV MCH MCHC RDW Plt Count MPV Neut % (Auto) Lymph % (Auto) [place] % (Auto) Eos % (Auto) Baso % (Auto) Neut # (Auto) Lymph # (Auto) [place] # (Auto) Eos # (Auto) Baso # (Auto) WBC Differential Differential Comment PT 11.5 INR 1.1 Sodium Potassium Chloride Carbon Dioxide Anion Gap BUN Creatinine Estimated GFR POC Glucose 187 H 155 H Random Glucose Calcium Phosphorus Magnesium Iron TIBC % Saturation Ferritin 08/06/18 08/06/18 08/06/18 03:48 03:48 08:19 WBC 5.3 RBC 2.17 L Hgb 8.9 L Hct 25.8 L MCV 118.8 H MCH 40.9 H MCHC 34.5 RDW 15.5 Plt Count 84 L MPV 9.2 Neut % (Auto) 74.9 H Lymph % (Auto) 13.7 [place] % (Auto) 9.8 H Eos % (Auto) 1.4 Baso % (Auto) 0.2 Neut # (Auto) 3.9 Lymph # (Auto) 0.7 L [place] # (Auto) 0.5 Eos # (Auto) 0.1 Baso # (Auto) 0.0 WBC Differential . Differential Comment Auto diff final PT INR Sodium 139 Potassium 3.4 L Chloride 103 Carbon Dioxide 29.3 Anion Gap 7 BUN 5 L Creatinine 0.41 L Estimated GFR Greater than 89 POC Glucose 120 H Random Glucose 113 H Calcium 7.7 L Phosphorus 1.7 L Magnesium 1.6 Iron TIBC % Saturation Ferritin Microbiology 08/05/18 13:30 Stool Stool Occult Blood ([facility]) - Final Hemoccult negative - Procedures Date of procedure: 08/04/18 Pre-op diagnosis: GI bleed, melena, anemia, weight loss Procedure: PROCEDURE PERFORMED EGD with biopsy PROCEDURE: The procedure, risks and benefits were discussed with Patient/POA and informed consent was obtained. Anesthesia sedated Patient with Diprivan. Patient was placed in the left lateral decubitus position. EGD: The Pentax videoscope was introduced through the oropharynx and advanced to the second portion of the duodenum under direct visualization. Retroflexion was performed in the stomach. FINDINGS: The esophagus this was unremarkable except for a short segment of Stern's at the distal end measuring less than 1 cm this was biopsied The stomach there was some mild patchy erythema in the antrum but no ulcerations no erosions no blood or bleeding antral biopsies were taken for further evaluation The duodenum this was normal ESTIMATED BLOOD LOSS: None SPECIMENS REMOVED: Esophageal and gastric biopsies COMPLICATIONS: None IMPRESSION: Short segment Stern's esophagus Mild gastritis PLAN: Await biopsies Continue with pantoprazole 40 mg daily EGD in 2 years Advance diet as tolerated Assessment and Plan (1) GI bleed Status: Acute Code(s): K92.2 - Gastrointestinal hemorrhage, unspecified (2) Unintentional weight loss Status: Acute Code(s): R63.4 - Abnormal weight loss - Plan GI bleed Patient presenting with report of 3-4-day history of black tarry stools, endorses history of Stern's esophagus along with EtOH abuse. Hemoglobin 9.7 hematocrit 28.1 platelet count 83 INR 1.3 total bilirubin 3.2 AST 122 ALT 60 alk phos 179. Unintentional weight loss Patient reports 15 pound weight loss in the 6-month time span. States occasional difficulty swallowing solid pieces of food times 6 months. 08/05/2018 mild alcohol hepatitis Status post EGD performed on 04/04/2018, findings include Short segment Stern's esophagus Mild gastritis Dark melena stools, last one seen on 08/05/2018 hemoglobin 9.1 mild decrease but need to continue to monitor Generalized weakness and fatigue as well as some fragility Anemia hemoglobin 9.1 Constipation no BM times 4 days, with bowel movement today noted dark stool probably melena Left-sided abdominal pain probably related to some constipation Mild coagulopathy probably related to alcohol 08/06/2018 patient did have bowel movement past 24 hours which was very dark, formed. Negative Hemoccult patient is taking vitamins with iron supplements and needs to continue secondary to his iron deficiency anemia. Needs to follow- up in the GI office after discharge and explained to patient to watch for any obvious hematemesis or bright red rectal bleeding. GI will sign off. Biopsies are pending and will be reviewed in the office PLAN: Diet as tolerated biopsies pending pantoprazole 40 mg daily Bowel regimen daily Alcohol abstinence EGD, repeat in 2 years Monitor labs and symptoms Patient was seen per myself and Dr. Orantes, note was written on his behalf
[2018-08-06] MEDS: Potassium Phos/Sodium Phos 250 MG Tablet PO SCH ×3 (09:21→18:26)
[2018-08-06] MEDS: Sodium Chloride 0.9% 2 ML Flush BID IV.FLUSH SCH ×2 (09:22→20:30)
[2018-08-06] MEDS: Multivit/Folic Acid/Minerals Chewable Tablets CHEW SCH (09:23)
[2018-08-06] MEDS: LORazepam 1 MG Tablet PO PRN (18:26)
--- NOTE | 2018-08-07 07:43 | P.PN ---
Subjective Interval history: Follow-up on patient with GI bleed. Patient seen and examined. Patient says he is doing better. He has been able to ambulate some in his room. He says he slept well. He complains of dyspnea at rest and with minimal exertion. He denies any chest pain. He denies any N/V or abdominal pain. He reports a good appetite. Physical Exam Vital signs: Vital Signs 08/06/18 08:00 08/06/18 09:15 08/06/18 11:48 Temperature 98.1 F 98.6 F Pulse Rate 74 66 69 Respiratory Rate 16 12 Blood Pressure 105/65 98/61 L Pulse Oximetry 96 99 08/06/18 16:00 08/06/18 19:58 08/06/18 20:00 Temperature 98.4 F 98.0 F Pulse Rate 69 84 Respiratory Rate 12 18 18 Blood Pressure 94/64 L 100/76 Pulse Oximetry 96 99 08/07/18 00:00 08/07/18 04:00 Temperature 98.1 F 98.3 F Pulse Rate 95 H 80 Respiratory Rate 17 19 Blood Pressure 105/69 99/66 L Pulse Oximetry 95 97 Intake & Output 08/06/18 08/07/18 08/07/18 18:59 06:59 18:59 Weight 58.967 kg Other: # Voids 3 Date of Last Bowel Movement 08/06/18 08/06/18 Narrative: GENERAL: Extremely thin, cachetic appearing male patient. Appears much older than stated age. Awake and alert. In no acute distress. SKIN: Warm and dry. +superficial skin breakdown noted over bony prominence of right hip and upper coccyx. +Small blister noted on right second toe. HEENT: Atraumatic. Normocephalic. Pupils equal and round. No scleral icterus. No injection or drainage. No nasal bleeding or discharge. Mucous membranes pink and moist. Poor dentition. NECK: Trachea midline. CARDIOVASCULAR: Regular rate and rhythm. RESPIRATORY: No accessory muscle use. Clear to auscultation. Fair air entry. Breath sounds equal bilaterally. GASTROINTESTINAL: Abdomen soft, non-tender, nondistended. +BS. MUSCULOSKELETAL: Extremities without clubbing, cyanosis, or edema. No obvious deformities. NEUROLOGICAL: Awake and alert. No obvious cranial nerve deficits. Motor grossly within normal limits. Able to move all extremities spontaneously. Normal speech. PSYCHIATRIC: Calm and cooperative. Results - Labs CBC & Chem 7: 08/07/18 10:51 08/07/18 10:51 Laboratory Results - last 24 hr 08/06/18 08/06/18 08/06/18 08:19 13:01 17:44 POC Glucose 120 H 157 H 138 H 08/06/18 20:33 POC Glucose 102 Microbiology 08/06/18 15:00 Stool Stool Occult Blood ([facility]) - Final Hemoccult negative - Procedures Date of procedure: 08/04/18 Pre-op diagnosis: GI bleed, melena, anemia, weight loss Procedure: PROCEDURE PERFORMED EGD with biopsy PROCEDURE: The procedure, risks and benefits were discussed with Patient/POA and informed consent was obtained. Anesthesia sedated Patient with Diprivan. Patient was placed in the left lateral decubitus position. EGD: The Pentax videoscope was introduced through the oropharynx and advanced to the second portion of the duodenum under direct visualization. Retroflexion was performed in the stomach. FINDINGS: The esophagus this was unremarkable except for a short segment of Stern's at the distal end measuring less than 1 cm this was biopsied The stomach there was some mild patchy erythema in the antrum but no ulcerations no erosions no blood or bleeding antral biopsies were taken for further evaluation The duodenum this was normal ESTIMATED BLOOD LOSS: None SPECIMENS REMOVED: Esophageal and gastric biopsies COMPLICATIONS: None IMPRESSION: Short segment Stern's esophagus Mild gastritis PLAN: Await biopsies Continue with pantoprazole 40 mg daily EGD in 2 years Advance diet as tolerated Assessment and Plan - Assessment (1) GI bleed Code(s): K92.2 - Gastrointestinal hemorrhage, unspecified Status: Acute (2) Cachectic Code(s): R64 - Cachexia Status: Chronic (3) COPD (chronic obstructive pulmonary disease) Code(s): J44.9 - Chronic obstructive pulmonary disease, unspecified Status: Chronic (4) Weakness Code(s): R53.1 - Weakness Status: Acute (5) Frequent falls Code(s): R29.6 - Repeated falls Status: Acute (6) Unintentional weight loss Code(s): R63.4 - Abnormal weight loss Status: Acute - Plan Patient is a 57-year-old male with a past medical history of COPD, Stern's esophagus and EtOH abuse. He presents to the ED for an evaluation of weakness - per ED report he was found lying on the side of the road and was picked up by EMS. He was found to have a blood sugar of 50 at that time and endorsed that he had not eaten in a few days; given D50 by EMS. He says he has been so weak he could not walk and had multiple falls. He endorses black stool and occasional emesis with some red blood in it. GI bleed, possibly secondary to esophageal varices hx of Barretts esophagus tolerating diet -GI consulted, appreciate assistance. s/p EGD showing mild gastritis and short segment of Stern's esophagus. Repeat EGD in 2 yrs. GI has signed off. -Protonix drip started by ED, discontinued. Changed to po Protonix 40mg BID. Anemia, suspect acute on chronic, multifactorial due to active GIB, ongoing alcohol abuse and suspected liver disease no e/o active bleeding stool hemoccult neg -hgb slowly trending down, 10.4 to 8.9. Today Hgb much improved to 11. -iron studies: iron 24, TIBC 129, %sat 18.6, ferritin 1750 -continue to monitor H&H as indicated Hypokalemia K 3.4 -po repletion ordered -repeat BMP in am to monitor response EtOH abuse -[facility] protocol -Counseled cessation -Thiamine, folic acid, MVI daily -monitor for signs of withdrawal Weakness and unintentional weight loss CT abd/pelvis shows chronic pancreatitis with some calcifications in the head and uncinate process, diffuse hepatic fatty infiltration B12 1258 Hepatitis and HIV panel nonreactive -PT eval/tx - recommends rehab. Patient is self pay. Increased PT to daily but patient has not been seen since 08/04. DW Case management. -Consult fifth hand, appreciate recommendations -added Ensure to diet order TID Thrombocytopenia, suspect secondary to liver disease INR 1.3 -platelets appear stable -INR stable -monitor for any bleeding COPD, not in acute exacerbation Ongoing tobaccoism CXR shows chronic COPD changes but no acute process -continue on nicotine patch -Duonebs prn -monitor respiratory status Hypophosphatemia phos 1.7 -po phosphorus repletion ordered DVT prophylaxis: Chemical prophylaxis contraindicated due to GI bleed; SCDs Code Status: Full Discussed Condition With: patient, nursing staff, Dr. Brar Discharge Planning: Not ready for discharge. Patient is still extremely weak. PT/OT recommending rehab. Patient has no payer source. PT escalated to daily.
[2018-08-07] MEDS: Multivit/Folic Acid/Minerals Chewable Tablets CHEW SCH (09:29)
[2018-08-07] MEDS: Potassium Phos/Sodium Phos 250 MG Tablet PO SCH ×3 (09:30→20:06)
[2018-08-07 11:15] LABS: Baso # (Auto) 0.1 th/mm3 (0.0-0.2); Baso % (Auto) 1.5 % (0.0-2.0); Eos # (Auto) 0.1 th/mm3 (0.0-0.4); Eos % (Auto) 1.7 % (0.0-4.0); Hematocrit 32.4 % (39.0-51.0); Lymph # (Auto) 0.6 th/mm3 (1.0-4.8); Lymph % (Auto) 14.1 % (9.0-44.0); Mean Corpuscular HGB Conc 33.9 % (32.0-36.0); Mean Corpuscular Hemoglobin 40.4 pg (27.0-34.0); Mean Corpuscular Volume 119.1 fL (80.0-100.0); Mono # (Auto) 0.7 th/mm3 (0.0-0.9); Mono % (Auto) 15.3 % (0.0-8.0); Neut % (Auto) 67.4 % (16.0-70.0); Platelet Count 130 th/mm3 (150-450); Red Blood Count 2.72 mil/mm3 (4.50-5.90); Red Cell Distribution Width 15.9 % (11.6-17.2); White Blood Count 4.4 th/mm3 (4.0-11.0)
[2018-08-07 11:33] LABS: Anion Gap 7 meq/L (5-15); Blood Urea Nitrogen 7 mg/dL (7-18); Calcium 8.4 mg/dL (8.5-10.1); Carbon Dioxide 31.4 meq/L (21.0-32.0); Chloride 99 meq/L (98-107); Glomerular Filtration Rate Greater Than 89 mL/min (>89); Glucose,Random 131 mg/dL (74-106); Potassium 3.4 meq/L (3.5-5.1); Sodium 137 meq/L (136-145)
[2018-08-07] MEDS: Sodium Chloride 0.9% 2 ML Flush BID IV.FLUSH SCH ×2 (12:43→21:59)
[2018-08-07 17:09] LABS: Hemoglobin A1c 4.4 % (4.3-6.0)
--- NOTE | 2018-08-07 17:57 | ECG ---
Date Performed: 08/03/2018 Time Performed: 14:59:23 PTAGE: 57 years EKG: Sinus rhythm WITH OCCASIONAL ECTOPIC PREMATURE COMPLEXES SEPTAL MYOCARDIAL INFARCTION ABNORMAL ECG PREVIOUS TRACING : 04/22/2013 09.36 Since the previous tracing, no significant change noted DOCTOR: José Miguel Bunn Interpretating Date/Time 08/07/2018 17:55:23
--- NOTE | 2018-08-08 08:14 | P.PN ---
Subjective Interval history: Follow-up for GI bleed, anemia, generalized weakness. Patient reports overall feeling better today. He states he is eating really well without any abdominal pain, nausea/vomiting, or diarrhea. He denies any hematochezia/melena. He reports continued weakness, although feels he is slightly improving. He states he has been trying to do exercises in his room on his own. He has no other medical complaints at this time. Physical Exam Vital signs: Vital Signs 08/07/18 08:55 08/07/18 11:30 08/07/18 18:57 Temperature 97.8 F 98.1 F 99.1 F Pulse Rate 71 71 77 Respiratory Rate 18 16 18 Blood Pressure 104/70 85/53 L 87/53 L Pulse Oximetry 95 98 08/07/18 20:35 08/07/18 23:59 08/08/18 00:01 Temperature 98.4 F 98.5 F Pulse Rate 80 76 73 Respiratory Rate 17 18 Blood Pressure 87/50 L 96/65 L Pulse Oximetry 97 96 08/08/18 04:00 08/08/18 04:15 Temperature 98.7 F Pulse Rate 72 72 Respiratory Rate 18 Blood Pressure 97/63 L Pulse Oximetry 94 L Intake & Output 08/07/18 08/08/18 08/08/18 18:59 06:59 18:59 Output Total 675 / 675 Balance -675 / -675 Weight 47.219 kg Output: Urine 675 / 675 Other: # Voids 1 Date of Last Bowel Movement 08/07/18 Narrative: GENERAL: Thin cachectic appearing male patient in [facility]. Appears older than stated age. SKIN: Warm and dry. Superficial skin breakdown noted over bony prominence of right hip and upper coccyx. Small blister on right second toe. HEENT: Normocephalic. Atraumatic. Bitemporal wasting noted. Pupils equal and round. Mucous membranes pink and moist. CARDIOVASCULAR: Regular rate and rhythm. No murmur appreciated. RESPIRATORY: No accessory muscle use. Clear to auscultation. Breath sounds equal bilaterally. GASTROINTESTINAL: Abdomen soft, non-tender, nondistended. Normoactive bowel sounds x4. MUSCULOSKELETAL: No obvious deformities. Extremities without clubbing, cyanosis , or edema. NEUROLOGICAL: Awake and alert. No obvious cranial nerve deficits. Motor grossly within normal limits. Moving all extremities spontaneously with generalized weakness. Normal speech. PSYCHIATRIC: Appropriate mood and affect; insight and judgment normal. Results - Labs CBC & Chem 7: 08/07/18 10:51 08/07/18 10:51 Laboratory Results - last 24 hr 08/06/18 08/07/18 08/07/18 03:48 10:51 10:51 WBC 4.4 RBC 2.72 L Hgb 11.0 L D Hct 32.4 L MCV 119.1 H MCH 40.4 H MCHC 33.9 RDW 15.9 Plt Count 130 L D MPV 9.0 Neut % (Auto) 67.4 Lymph % (Auto) 14.1 [place] % (Auto) 15.3 H Eos % (Auto) 1.7 Baso % (Auto) 1.5 Neut # (Auto) 3.0 Lymph # (Auto) 0.6 L [place] # (Auto) 0.7 Eos # (Auto) 0.1 Baso # (Auto) 0.1 WBC Differential . Differential Comment Auto diff final Sodium 137 Potassium 3.4 L Chloride 99 Carbon Dioxide 31.4 Anion Gap 7 BUN 7 Creatinine 0.50 L Estimated GFR Greater than 89 POC Glucose Random Glucose 131 H Hemoglobin A1c 4.4 Calcium 8.4 L 08/07/18 08/07/18 08/07/18 12:37 18:09 23:27 WBC RBC Hgb Hct MCV MCH MCHC RDW Plt Count MPV Neut % (Auto) Lymph % (Auto) [place] % (Auto) Eos % (Auto) Baso % (Auto) Neut # (Auto) Lymph # (Auto) [place] # (Auto) Eos # (Auto) Baso # (Auto) WBC Differential Differential Comment Sodium Potassium Chloride Carbon Dioxide Anion Gap BUN Creatinine Estimated GFR POC Glucose 114 H 153 H 128 H Random Glucose Hemoglobin A1c Calcium 08/08/18 07:40 WBC RBC Hgb Hct MCV MCH MCHC RDW Plt Count MPV Neut % (Auto) Lymph % (Auto) [place] % (Auto) Eos % (Auto) Baso % (Auto) Neut # (Auto) Lymph # (Auto) [place] # (Auto) Eos # (Auto) Baso # (Auto) WBC Differential Differential Comment Sodium Potassium Chloride Carbon Dioxide Anion Gap BUN Creatinine Estimated GFR POC Glucose 106 Random Glucose Hemoglobin A1c Calcium - Imaging Chest X-Ray 08/03/18 14:01 CONCLUSION: 1. Changes of obstructive pulmonary disease without acute abnormality. Head CT 08/03/18 14:01 CONCLUSION: 1. Chronic sinusitis with regional bony thickening in the superior aspect of the left maxillary antra. 2. Mild, symmetric cortical atrophy. 3. Nothing acute. . Abdomen/Pelvis CT 08/03/18 15:28 CONCLUSION: 1. Chronic pancreatitis with some calcifications in the head and uncinate process. No acute pancreatitis. 2. Diffuse hepatic fatty infiltration. 3. Bibasilar emphysematous changes with no acute infiltrate. - Procedures Date of procedure: 08/04/18 Pre-op diagnosis: GI bleed, melena, anemia, weight loss Procedure: PROCEDURE PERFORMED EGD with biopsy PROCEDURE: The procedure, risks and benefits were discussed with Patient/POA and informed consent was obtained. Anesthesia sedated Patient with Diprivan. Patient was placed in the left lateral decubitus position. EGD: The Pentax videoscope was introduced through the oropharynx and advanced to the second portion of the duodenum under direct visualization. Retroflexion was performed in the stomach. FINDINGS: The esophagus this was unremarkable except for a short segment of Stern's at the distal end measuring less than 1 cm this was biopsied The stomach there was some mild patchy erythema in the antrum but no ulcerations no erosions no blood or bleeding antral biopsies were taken for further evaluation The duodenum this was normal ESTIMATED BLOOD LOSS: None SPECIMENS REMOVED: Esophageal and gastric biopsies COMPLICATIONS: None IMPRESSION: Short segment Stern's esophagus Mild gastritis PLAN: Await biopsies Continue with pantoprazole 40 mg daily EGD in 2 years Advance diet as tolerated Assessment and Plan - Assessment (1) GI bleed Code(s): K92.2 - Gastrointestinal hemorrhage, unspecified Status: Acute (2) Cachectic Code(s): R64 - Cachexia Status: Chronic (3) COPD (chronic obstructive pulmonary disease) Code(s): J44.9 - Chronic obstructive pulmonary disease, unspecified Status: Chronic (4) Weakness Code(s): R53.1 - Weakness Status: Acute (5) Frequent falls Code(s): R29.6 - Repeated falls Status: Acute (6) Unintentional weight loss Code(s): R63.4 - Abnormal weight loss Status: Acute - Plan 57-year-old male with a past medical history of COPD, Stern's esophagus and EtOH abuse. He presents to the ED for an evaluation of weakness -per ED report he was found lying on the side of the road and was picked up by EMS. He was found to have a blood sugar of 50 at that time and endorsed that he had not eaten in a few days; given D50 by EMS. He says he has been so weak he could not walk and had multiple falls. He endorses black stool and occasional emesis with some red blood in it. GI bleed: possibly secondary to esophageal varices, hx of Barretts esophagus -GI consulted, appreciate assistance. -s/p EGD 08/04 showing mild gastritis and short segment of Stern's esophagus. Repeat EGD in 2 yrs. -Protonix drip started by ED, discontinued. Changed to po Protonix 40mg BID. -GI has signed off. -patient is tolerating oral intake, Hgb stable at 11 Anemia, suspect acute on chronic, multifactorial due to active GIB, ongoing alcohol abuse and suspected liver disease -stool hemoccult neg -hgb slowly trended down, 10.4 to 8.9, now Hgb much improved to 11. -iron studies: iron 24, TIBC 129, %sat 18.6, ferritin 1750 - suggests anemia of chronic disease -continue to monitor H&H as indicated, stable Severe Hypokalemia: K dropped to 2.7 -given po/IV KCl -repeat BMP shows improvement with K 3.4, monitor EtOH abuse -[facility] protocol -Counseled cessation -Thiamine, folic acid, MVI daily -monitor for signs of withdrawal Weakness and unintentional weight loss -CT abd/pelvis shows chronic pancreatitis with some calcifications in the head and uncinate process, diffuse hepatic fatty infiltration -B12 1258 -Hepatitis and HIV panel nonreactive -PT eval/tx - recommends rehab. Patient is self pay. Increased PT to daily . DW Case management. -Consult head golf coach, appreciate recommendations -added Ensure to diet order TID Thrombocytopenia, suspect secondary to liver disease -INR 1.3 -platelets appear stable -INR stable -monitor for any bleeding COPD, not in acute exacerbation, Ongoing tobaccoism -CXR shows chronic COPD changes but no acute process -continue on nicotine patch -Duonebs prn -monitor respiratory status Hypophosphatemia: phos 1.7 -po phosphorus repletion ordered DVT prophylaxis: SCDs; Chemical prophylaxis contraindicated due to GI bleed Discharge Planning: Not ready for discharge. Patient is still extremely weak. PT/OT recommending rehab. Patient has no payer source. Continue daily PT.
[2018-08-08] MEDS: Potassium Phos/Sodium Phos 250 MG Tablet PO SCH ×3 (08:55→17:02)
[2018-08-08] MEDS: Multivit/Folic Acid/Minerals Chewable Tablets CHEW SCH (08:56)
[2018-08-08] MEDS: Sodium Chloride 0.9% 2 ML Flush BID IV.FLUSH SCH ×2 (09:16→20:28)
[2018-08-08 09:33] LABS: Anion Gap 8 meq/L (5-15); Blood Urea Nitrogen 9 mg/dL (7-18); Calcium 8.2 mg/dL (8.5-10.1); Carbon Dioxide 29.3 meq/L (21.0-32.0); Chloride 100 meq/L (98-107); Glomerular Filtration Rate Greater Than 89 mL/min (>89); Glucose,Random 100 mg/dL (74-106); Potassium 3.7 meq/L (3.5-5.1); Sodium 137 meq/L (136-145)
[2018-08-08] MEDS: LORazepam 1 MG Tablet PO PRN (20:26)
[2018-08-09] MEDS: Multivit/Folic Acid/Minerals Chewable Tablets CHEW SCH (08:54)
[2018-08-09] MEDS: Sodium Chloride 0.9% 2 ML Flush BID IV.FLUSH SCH ×2 (08:55→22:00)
--- NOTE | 2018-08-09 14:43 | P.PNIM ---
Subjective Interval history: Follow-up on patient with GI bleed, generalized weakness, anemia, EtOH. Patient seen and examined laying in bed, weakness. Patient stated came to the hospital due to unable to evaluate. Patient denies any headache or dizziness, denies pain, chest, abdominal pain, vomiting, diarrhea or constipation. Patient stated he is eating more than anyone else. Patient denies any fever or chills. Physical Exam Vital signs: Vital Signs 08/08/18 16:00 08/08/18 20:00 08/09/18 00:00 Temperature 99.1 F 98.4 F 98.0 F Pulse Rate 74 82 81 Respiratory Rate 18 16 17 Blood Pressure 84/51 L 100/65 83/54 L Pulse Oximetry 97 95 95 08/09/18 04:00 08/09/18 08:00 08/09/18 12:00 Temperature 97.8 F 98.6 F 97.3 F L Pulse Rate 76 73 77 Respiratory Rate 18 18 18 Blood Pressure 86/58 L 91/57 L 102/61 Pulse Oximetry 93 L 96 95 Intake & Output 08/08/18 08/09/18 08/09/18 18:59 06:59 18:59 Intake Total 500 / 500 Balance 500 / 500 Weight 45.9 kg Intake: Oral 500 / 500 Other: # Voids 1 Date of Last Bowel Movement 08/07/18 08/08/18 08/09/18 Narrative: GENERAL: Thin cachectic appearing male patient elderly looking male in no apparent distress SKIN: Warm and dry.Superficial skin breakdown noted over bony prominence of right hip and upper coccyx. Small blister on right second toe. HEAD: Atraumatic. Normocephalic. EYES: Pupils equal and round. No scleral icterus. No injection or drainage. ENT: No nasal bleeding or discharge. Mucous membranes pink and moist. NECK: Trachea midline. No JVD. CARDIOVASCULAR: Regular rate and rhythm. RESPIRATORY: No accessory muscle use. Clear to auscultation. Breath sounds equal bilaterally. GASTROINTESTINAL: Abdomen flat soft, non-tender, nondistended. Hepatic and splenic margins not palpable. MUSCULOSKELETAL: Extremities without clubbing, cyanosis, or edema. No obvious deformities. NEUROLOGICAL: Awake and alert x3. No obvious cranial nerve deficits. Motor grossly within normal limits. Generalized weakness, moving all 4 extremities normal speech. PSYCHIATRIC: Appropriate mood and affect; insight and judgment normal. Results - Labs CBC & Chem 7: 08/07/18 10:51 08/08/18 07:54 Laboratory Results - last 24 hr 08/08/18 08/08/18 08/08/18 11:25 16:20 20:27 POC Glucose 179 H 143 H 128 H 08/09/18 08/09/18 07:33 11:05 POC Glucose 111 H 165 H - Procedures Date of procedure: 08/04/18 Pre-op diagnosis: GI bleed, melena, anemia, weight loss Procedure: PROCEDURE PERFORMED EGD with biopsy PROCEDURE: The procedure, risks and benefits were discussed with Patient/POA and informed consent was obtained. Anesthesia sedated Patient with Diprivan. Patient was placed in the left lateral decubitus position. EGD: The Pentax videoscope was introduced through the oropharynx and advanced to the second portion of the duodenum under direct visualization. Retroflexion was performed in the stomach. FINDINGS: The esophagus this was unremarkable except for a short segment of Stern's at the distal end measuring less than 1 cm this was biopsied The stomach there was some mild patchy erythema in the antrum but no ulcerations no erosions no blood or bleeding antral biopsies were taken for further evaluation The duodenum this was normal ESTIMATED BLOOD LOSS: None SPECIMENS REMOVED: Esophageal and gastric biopsies COMPLICATIONS: None IMPRESSION: Short segment Stern's esophagus Mild gastritis PLAN: Await biopsies Continue with pantoprazole 40 mg daily EGD in 2 years Advance diet as tolerated Assessment and Plan - Assessment (1) GI bleed Code(s): K92.2 - Gastrointestinal hemorrhage, unspecified Status: Acute (2) Cachectic Code(s): R64 - Cachexia Status: Chronic (3) COPD (chronic obstructive pulmonary disease) Code(s): J44.9 - Chronic obstructive pulmonary disease, unspecified Status: Chronic (4) Weakness Code(s): R53.1 - Weakness Status: Acute (5) Frequent falls Code(s): R29.6 - Repeated falls Status: Acute (6) Unintentional weight loss Code(s): R63.4 - Abnormal weight loss Status: Acute - Plan 57-year-old male with a past medical history of COPD, Stern's esophagus and EtOH abuse. He presents to the ED for an evaluation of weakness -per ED report he was found lying on the side of the road and was picked up by EMS. He was found to have a blood sugar of 50 at that time and endorsed that he had not eaten in a few days; given D50 by EMS. He says he has been so weak he could not walk and had multiple falls. He endorses black stool and occasional emesis with some red blood in it. GI bleed Likely secondary to esophageal varices, hx of Barretts esophagus -GI consulted, appreciate assistance. -s/p EGD 08/04 showing mild gastritis and short segment of Stern's esophagus. Repeat EGD in 2 yrs. -Protonix drip started by ED, discontinued. Changed to po Protonix 40mg BID. -GI has signed off. -patient is tolerating oral intake, Hgb stable at 11 Anemia, suspect acute on chronic, multifactorial due to active GIB, ongoing alcohol abuse and suspected liver disease -stool hemoccult neg -hgb slowly trended down, 10.4 to 8.9, now Hgb much improved to 11. -iron studies: iron 24, TIBC 129, %sat 18.6, ferritin 1750 - suggests anemia of chronic disease -continue to monitor H&H as indicated, stable Hypotension Blood pressure in the low side ranging from 85/53 - 102/61 -Start IV fluid half-normal saline times 2 L -Encourage increase fluid intake -Likely contributing to dizziness and weakness -Monitor orthostatic hypotension -Not on any blood pressure medication -May consider starting on hypotensive medication if necessary -Add LEOPOLDO hose bilateral Severe Hypokalemia: K dropped to 2.7 -replacex po/IV KCl -repeat BMP shows improvement with K 3.7 -monitor BMP EtOH abuse -[facility] protocol -Counseled cessation -Thiamine, folic acid, MVI daily -no signs of withdrawal, monitor for signs of withdrawal Weakness and unintentional weight loss -CT abd/pelvis shows chronic pancreatitis with some calcifications in the head and uncinate process, diffuse hepatic fatty infiltration -B12 1258 -Hepatitis and HIV panel nonreactive -PT eval/tx - recommends rehab. Patient is self pay. Increased PT to daily . DW Case management. -Consult drug clerk, appreciate recommendations -added Ensure to diet order TID Thrombocytopenia Likely secondary to liver disease -INR stable, 1.3 -platelets improving, 130 today -monitor for any bleeding -monitor CBC COPD Not in acute exacerbation, Ongoing tobaccoism -CXR shows chronic COPD changes but no acute process -continue on nicotine patch -Duonebs prn -monitor respiratory status Hypophosphatemia phos 1.7 -continue phosphorus repletion -monitor Phosphorous DVT prophylaxis: SCDs; Chemical prophylaxis contraindicated due to GI bleed Code Status: Full code Discussed Condition With: Patient, nurse, MDR Discharge Planning: Need extensive physical therapy. Patient is still extremely weak. PT/OT recommending rehab. Patient has no payer source.
[2018-08-09] MEDS: Sodium Chloride 0.45 % Inj 1,000 ML IV.CONT SCH (15:06)
[2018-08-10] MEDS: Sodium Chloride 0.45 % Inj 1,000 ML IV.CONT SCH (03:21)
[2018-08-10 08:10] LABS: Baso # (Auto) 0.1 th/mm3 (0.0-0.2); Baso % (Auto) 2.3 % (0.0-2.0); Eos # (Auto) 0.1 th/mm3 (0.0-0.4); Eos % (Auto) 2.5 % (0.0-4.0); Hematocrit 26.7 % (39.0-51.0); Hemoglobin 9.3 gm/dL (13.0-17.0); Lymph # (Auto) 0.8 th/mm3 (1.0-4.8); Mean Corpuscular HGB Conc 34.8 % (32.0-36.0); Mean Corpuscular Hemoglobin 40.8 pg (27.0-34.0); Mean Corpuscular Volume 117.2 fL (80.0-100.0); Mean Platelet Volume 9.2 fL (7.0-11.0); Mono # (Auto) 1.7 th/mm3 (0.0-0.9); Mono % (Auto) 30.6 % (0.0-8.0); Neut # (Auto) 2.8 th/mm3 (1.8-7.7); Neut % (Auto) 50.6 % (16.0-70.0); Platelet Count 209 th/mm3 (150-450); Red Blood Count 2.28 mil/mm3 (4.50-5.90); Red Cell Distribution Width 15.6 % (11.6-17.2); White Blood Count 5.6 th/mm3 (4.0-11.0)
[2018-08-10 08:36] LABS: Anion Gap 9 meq/L (5-15); Blood Urea Nitrogen 9 mg/dL (7-18); Calcium 8.2 mg/dL (8.5-10.1); Carbon Dioxide 27.8 meq/L (21.0-32.0); Chloride 103 meq/L (98-107); Glomerular Filtration Rate Greater Than 89 mL/min (>89); Glucose,Random 95 mg/dL (74-106); Potassium 3.9 meq/L (3.5-5.1); Sodium 140 meq/L (136-145)
[2018-08-10] MEDS: Multivit/Folic Acid/Minerals Chewable Tablets CHEW SCH (11:10)
[2018-08-10] MEDS: Sodium Chloride 0.9% 2 ML Flush BID IV.FLUSH SCH ×2 (11:10→22:30)
--- NOTE | 2018-08-10 16:14 | P.DIET ---
Nutritional Evaluation Type of nutrition evaluation: follow-up Nutrition consult regarding: Diet Evaluation Nutrition screening: Poor PO Intake Subjective Subjective Comments: Pt w/100% po for meals today. Brought forward from previous note: Pt reported poor appetite and did not eat for a few days per MD note. Pt also mentions he had been losing wt unintentionally. Objective - Diagnosis GI bleed, hyperbilirubinemia - Objective % IBW: 50 (IBW = 208lb) Body Weight Used for Calculations: Actual Energy Needs - Lower Range (kCal/kg): 22 Energy Needs - Upper Range (kCal/kg): 27 Lower Limit kCal/kg (kCals): 2,079 Upper Limit kCal/kg (kCals): 2,646 Lower Limit Protein Factor (Grams per Kg): 0.9 Upper Limit Protein Factor (Grams per Kg): 1.2 Lower Protein Needs (Protein): 85 Upper Protein Needs (Protein): 113 Fluid Factor (ml/kg): 22 Estimated Fluid Needs (ml): 2,079 Dietitian Reviewed in Medical Record: Current diet, Curent medications, Intake & Output, Labs, Medical history Diet Order: Cardiac Soft Oral Diet Intake Amount: Good 75-90% Objective Comments: PMH: Stern's esophagus, chronic pancreatitis, COPD, fatty liver, alcohol abuse , rectal prolapse Meds: Haldol, lorazepam, MVI w/ folic acid and vit C, vit B1 Labs include: A1C 4.4 +1BM Feeding - Current PO Supplement Current Supplement: Ensure Original Current Frequency of Supplement: Three times a day Current kCals Provided by Supplement: 250 Current Protein Provided by Supplement: 9 Assessment Assessment: Pt continues at nutritional risk r/t reported poor po intake and very low BMI 12.7. Pt is tolerating po diet w/Adequate po intake 75% and greater for meals here. Ensure TID per MD. Noted pt is ordering nutrient-dense foods-low fat yogurt, milk. Send Ensure Pudding bid for additional nutrition(=170 kcal and 4g Protein). Labs reviewed. Wt changes noted. Dietitian following. Recommendations: 1. Ensure TID per MD 2. Noted pt is ordering nutrient-dense foods-low fat yogurt, milk 3. Send Ensure Pudding bid for additional nutrition 4. Dietitian following Dietitian to Monitor: Lab values, Supplement acceptance, Intake & Output, Weight change, PO Intake, Medical course
--- NOTE | 2018-08-10 17:40 | P.PNIM ---
Subjective Interval history: Follow-up on patient with GI bleed, generalized weakness, anemia, EtOH. Patient sitting in the bed, denies any pain or shortness of breath, patient stated he is eating well however he is just kidney. Patient denies any headache or dizziness, just some dizziness while ambulating with a physical therapy but it has been better. Patient stated wearing the LEOPOLDO hose and getting fluids however the blood pressure still low. Patient denies any chest pain or shortness of breath, denies any abdominal pain, nausea, vomiting, diarrhea or constipation. Patient denies any fever or chills. Patient wanting to take a shower today when the comes Physical Exam Vital signs: Vital Signs 08/09/18 20:00 08/10/18 00:00 08/10/18 08:00 Temperature 98.0 F 98.3 F 98.0 F Pulse Rate 81 76 69 Respiratory Rate 18 18 18 Blood Pressure 110/68 92/55 L 102/58 L Pulse Oximetry 94 L 96 97 08/10/18 12:00 Temperature 98.4 F Pulse Rate 79 Respiratory Rate 18 Blood Pressure 88/54 L Pulse Oximetry 97 Intake & Output 08/09/18 08/10/18 08/10/18 18:59 06:59 18:59 Intake Total 1200 / 1200 1000 / 1000 Output Total 600 / 600 Balance 1200 / 1200 400 / 400 Weight 48.6 kg Intake: IV 1000 / 1000 1/2 Normal Saline Inj 1,000 ML 1000 / 1000 @ 84 mls/hr IV.CONT .[id number] [facility] Rx#:[id number] Oral 1200 / 1200 Output: Urine 600 / 600 Other: # Voids 3 Date of Last Bowel Movement 08/09/18 08/09/18 # Bowel Movements 1 Narrative: GENERAL: Thin cachectic appearing male patient elderly looking male in no apparent distress SKIN: Warm and dry.Superficial skin breakdown noted over bony prominence of right hip and upper coccyx. Small blister on right second toe. HEAD: Atraumatic. Normocephalic. EYES: Pupils equal and round. No scleral icterus. No injection or drainage. ENT: No nasal bleeding or discharge. Mucous membranes pink and moist. NECK: Trachea midline. No JVD. CARDIOVASCULAR: Regular rate and rhythm. RESPIRATORY: No accessory muscle use. Clear to auscultation. Breath sounds equal bilaterally. GASTROINTESTINAL: Abdomen flat soft, non-tender, nondistended. Hepatic and splenic margins not palpable. MUSCULOSKELETAL: Extremities without clubbing, cyanosis, or edema. No obvious deformities. NEUROLOGICAL: Awake and alert x3. No obvious cranial nerve deficits. Motor grossly within normal limits. Generalized weakness, moving all 4 extremities normal speech. PSYCHIATRIC: Appropriate mood and affect; insight and judgment normal. Results - Labs CBC & Chem 7: 08/10/18 06:39 08/10/18 06:39 Laboratory Results - last 24 hr 08/10/18 08/10/18 08/10/18 06:39 06:39 14:31 WBC 5.6 RBC 2.28 L Hgb 9.3 L Hct 26.7 L MCV 117.2 H MCH 40.8 H MCHC 34.8 RDW 15.6 Plt Count 209 D MPV 9.2 Neut % (Auto) 50.6 Lymph % (Auto) 14.0 [place] % (Auto) 30.6 H Eos % (Auto) 2.5 Baso % (Auto) 2.3 H Neut # (Auto) 2.8 Lymph # (Auto) 0.8 L [place] # (Auto) 1.7 H Eos # (Auto) 0.1 Baso # (Auto) 0.1 WBC Differential . Differential Comment Auto diff final Sodium 140 Potassium 3.9 Chloride 103 Carbon Dioxide 27.8 Anion Gap 9 BUN 9 Creatinine 0.45 L Estimated GFR Greater than 89 POC Glucose 111 H Random Glucose 95 Calcium 8.2 L TSH 2.700 - Procedures Date of procedure: 08/04/18 Pre-op diagnosis: GI bleed, melena, anemia, weight loss Procedure: PROCEDURE PERFORMED EGD with biopsy PROCEDURE: The procedure, risks and benefits were discussed with Patient/POA and informed consent was obtained. Anesthesia sedated Patient with Diprivan. Patient was placed in the left lateral decubitus position. EGD: The Pentax videoscope was introduced through the oropharynx and advanced to the second portion of the duodenum under direct visualization. Retroflexion was performed in the stomach. FINDINGS: The esophagus this was unremarkable except for a short segment of Stern's at the distal end measuring less than 1 cm this was biopsied The stomach there was some mild patchy erythema in the antrum but no ulcerations no erosions no blood or bleeding antral biopsies were taken for further evaluation The duodenum this was normal ESTIMATED BLOOD LOSS: None SPECIMENS REMOVED: Esophageal and gastric biopsies COMPLICATIONS: None IMPRESSION: Short segment Stern's esophagus Mild gastritis PLAN: Await biopsies Continue with pantoprazole 40 mg daily EGD in 2 years Advance diet as tolerated Assessment and Plan - Assessment (1) GI bleed Code(s): K92.2 - Gastrointestinal hemorrhage, unspecified Status: Acute (2) Cachectic Code(s): R64 - Cachexia Status: Chronic (3) COPD (chronic obstructive pulmonary disease) Code(s): J44.9 - Chronic obstructive pulmonary disease, unspecified Status: Chronic (4) Weakness Code(s): R53.1 - Weakness Status: Acute (5) Frequent falls Code(s): R29.6 - Repeated falls Status: Acute (6) Unintentional weight loss Code(s): R63.4 - Abnormal weight loss Status: Acute - Plan 57-year-old male with a past medical history of COPD, Stern's esophagus and EtOH abuse. He presents to the ED for an evaluation of weakness -per ED report he was found lying on the side of the road and was picked up by EMS. He was found to have a blood sugar of 50 at that time and endorsed that he had not eaten in a few days; given D50 by EMS. He says he has been so weak he could not walk and had multiple falls. He endorses black stool and occasional emesis with some red blood in it. GI bleed Likely secondary to esophageal varices, hx of Barretts esophagus -GI consulted, appreciate assistance. -s/p EGD 08/04 showing mild gastritis and short segment of Stern's esophagus. Repeat EGD in 2 yrs. -Protonix drip started by ED, discontinued. Changed to po Protonix 40mg BID. -GI has signed off. -patient is tolerating oral intake, Hgb stable at 11 Anemia, suspect acute on chronic, multifactorial due to active GIB, ongoing alcohol abuse and suspected liver disease -stool hemoccult neg -hgb slowly trended down, 10.4 to 8.9, now Hgb much improved to 11. -iron studies: iron 24, TIBC 129, %sat 18.6, ferritin 1750 - suggests anemia of chronic disease -continue to monitor H&H as indicated, stable Hypotension/orthostatic hypotension Blood pressure in the low side ranging from 85/53 - 102/61 -Start IV fluid half-normal saline times 2 L -Encourage increase fluid intake -Likely contributing to dizziness and weakness -Monitor orthostatic hypotension -Not on any blood pressure medication -Add LEOPOLDO hose bilateral -start on midodrine, -monitor BP Severe Hypokalemia: K dropped to 2.7 -replace as needed -repeat BMP shows improvement with K 3.7 -monitor BMP EtOH abuse -[facility] protocol -Counseled cessation -Thiamine, folic acid, MVI daily -no signs of withdrawal, monitor for signs of withdrawal Weakness and unintentional weight loss -CT abd/pelvis shows chronic pancreatitis with some calcifications in the head and uncinate process, diffuse hepatic fatty infiltration -B12 1258 -Hepatitis and HIV panel nonreactive -PT eval/tx - recommends rehab. Patient is self pay. Increased PT to daily . DW Case management. -Consult help desk rep, appreciate recommendations -added Ensure to diet order TID Thrombocytopenia Likely secondary to liver disease -INR stable, 1.3 -platelets improving, 130 today -monitor for any bleeding -monitor CBC Transaminitis -Likely due to EtOH -Monitor LFT COPD Not in acute exacerbation, Ongoing tobaccoism -CXR shows chronic COPD changes but no acute process -continue on nicotine patch -Duonebs prn -monitor respiratory status Hypophosphatemia phos 1.7 -continue phosphorus repletion -monitor Phosphorous DVT prophylaxis: SCDs; Chemical prophylaxis contraindicated due to GI bleed Code Status: Full code Discussed Condition With: Patient, nurse, MDR Discharge Planning: Need extensive physical therapy. Patient is still extremely weak. PT/OT recommending rehab. Patient has no payer source.
[2018-08-11] MEDS: Multivit/Folic Acid/Minerals Chewable Tablets CHEW SCH (08:06)
[2018-08-11] MEDS: Sodium Chloride 0.9% 2 ML Flush BID IV.FLUSH SCH ×2 (08:07→21:22)
[2018-08-11 08:32] LABS: Baso # (Auto) 0.2 th/mm3 (0.0-0.2); Baso % (Auto) 2.6 % (0.0-2.0); Eos # (Auto) 0.2 th/mm3 (0.0-0.4); Eos % (Auto) 3.2 % (0.0-4.0); Hematocrit 26.7 % (39.0-51.0); Hemoglobin 9.4 gm/dL (13.0-17.0); Lymph # (Auto) 0.9 th/mm3 (1.0-4.8); Lymph % (Auto) 15.5 % (9.0-44.0); Mean Corpuscular HGB Conc 35.1 % (32.0-36.0); Mean Corpuscular Hemoglobin 41.1 pg (27.0-34.0); Mean Corpuscular Volume 116.9 fL (80.0-100.0); Mean Platelet Volume 9.1 fL (7.0-11.0); Mono # (Auto) 1.6 th/mm3 (0.0-0.9); Mono % (Auto) 27.7 % (0.0-8.0); Platelet Count 253 th/mm3 (150-450); Red Blood Count 2.29 mil/mm3 (4.50-5.90); Red Cell Distribution Width 15.1 % (11.6-17.2); White Blood Count 5.9 th/mm3 (4.0-11.0)
[2018-08-11 08:50] LABS: Albumin 2.3 g/dL (3.4-5.0); Anion Gap 8 meq/L (5-15); Aspartate Aminotransferase 19 U/L (15-37); Blood Urea Nitrogen 9 mg/dL (7-18); Calcium 7.9 mg/dL (8.5-10.1); Carbon Dioxide 29.2 meq/L (21.0-32.0); Chloride 104 meq/L (98-107); Glomerular Filtration Rate Greater Than 89 mL/min (>89); Glucose,Random 89 mg/dL (74-106); Potassium 3.7 meq/L (3.5-5.1); Sodium 141 meq/L (136-145)
[2018-08-11 08:52] LABS: Alanine Aminotransferase 27 U/L (12-78)
[2018-08-11 08:54] LABS: Alkaline Phosphatase 151 U/L (45-117); Total Protein 5.5 g/dL (6.4-8.2)
--- NOTE | 2018-08-11 16:48 | P.PNIM ---
Subjective Interval history: Follow-up on patient with GI bleed, generalized weakness, anemia, EtOH. Patient seen and examined, sitting in the chair, stated feeling better. Patient denies any GI bleed at this time, no abdominal pain, nausea or vomiting. Stated stool good with no constipation or diarrhea. Patient stated he is eating well, eat all the food. Family at bedside, addressed answers concerns. patient stated he has been walking in the room with walker and going to the bathroom without problem. Patient denies any pain, chest pain or shortness of breath. Denies any fever or chills. Physical Exam Vital signs: Vital Signs 08/10/18 20:00 08/11/18 00:00 08/11/18 08:00 Temperature 98.1 F 98.9 F 98.2 F Pulse Rate 82 75 81 Respiratory Rate 16 17 17 Blood Pressure 90/55 L 95/56 L 100/60 Pulse Oximetry 97 96 95 08/11/18 12:00 Temperature 97.7 F Pulse Rate 84 Respiratory Rate 17 Blood Pressure 90/61 L Pulse Oximetry 98 Intake & Output 08/10/18 08/11/18 08/11/18 18:59 06:59 18:59 Intake Total 3158 / 3158 500 / 500 Output Total 400 / 400 Balance 3158 / 3158 100 / 100 Weight 46.4 kg Intake: IV 1000 / 1000 1/2 Normal Saline Inj 1,000 ML 1000 / 1000 @ 84 mls/hr IV.CONT .[id number] GILMAR Rx#:[id number] Oral 1798 / 1798 500 / 500 Oral Supplement 360 / 360 Output: Urine 400 / 400 Other: # Voids 6 1 Date of Last Bowel Movement 08/10/18 08/09/18 # Bowel Movements 3 Narrative: GENERAL: Thin cachectic appearing male patient, elderly looking, in no apparent distress SKIN: Warm and dry.Superficial skin breakdown noted over bony prominence of right hip and upper coccyx. Small blister on right second toe. HEAD: Atraumatic. Normocephalic. EYES: Pupils equal and round. No scleral icterus. No injection or drainage. ENT: No nasal bleeding or discharge. Mucous membranes pink and moist. NECK: Trachea midline. No JVD. CARDIOVASCULAR: Regular rate and rhythm. RESPIRATORY: No accessory muscle use. Clear to auscultation. Breath sounds equal bilaterally. GASTROINTESTINAL: Abdomen flat soft, non-tender, nondistended. Hepatic and splenic margins not palpable. MUSCULOSKELETAL: Extremities without clubbing, cyanosis, or edema. No obvious deformities. NEUROLOGICAL: Awake and alert x3. No obvious cranial nerve deficits. Motor grossly within normal limits. Generalized weakness, moving all 4 extremities normal speech. PSYCHIATRIC: Appropriate mood and affect; insight and judgment normal. Results - Labs CBC & Chem 7: 08/11/18 06:44 08/11/18 06:44 Laboratory Results - last 24 hr 08/10/18 08/10/18 08/11/18 18:23 22:26 06:44 WBC 5.9 RBC 2.29 L Hgb 9.4 L Hct 26.7 L MCV 116.9 H MCH 41.1 H MCHC 35.1 RDW 15.1 Plt Count 253 MPV 9.1 Neut % (Auto) 51.0 Lymph % (Auto) 15.5 [place] % (Auto) 27.7 H Eos % (Auto) 3.2 Baso % (Auto) 2.6 H Neut # (Auto) 3.0 Lymph # (Auto) 0.9 L [place] # (Auto) 1.6 H Eos # (Auto) 0.2 Baso # (Auto) 0.2 WBC Differential . Differential Comment Auto diff final Sodium Potassium Chloride Carbon Dioxide Anion Gap BUN Creatinine Estimated GFR POC Glucose 155 H 143 H Random Glucose Calcium Total Bilirubin AST ALT Alkaline Phosphatase Total Protein Albumin 08/11/18 08/11/18 06:44 07:56 WBC RBC Hgb Hct MCV MCH MCHC RDW Plt Count MPV Neut % (Auto) Lymph % (Auto) [place] % (Auto) Eos % (Auto) Baso % (Auto) Neut # (Auto) Lymph # (Auto) [place] # (Auto) Eos # (Auto) Baso # (Auto) WBC Differential Differential Comment Sodium 141 Potassium 3.7 Chloride 104 Carbon Dioxide 29.2 Anion Gap 8 BUN 9 Creatinine 0.48 L Estimated GFR Greater than 89 POC Glucose 102 Random Glucose 89 Calcium 7.9 L Total Bilirubin 0.7 AST 19 ALT 27 Alkaline Phosphatase 151 H Total Protein 5.5 L D Albumin 2.3 L - Procedures Date of procedure: 08/04/18 Pre-op diagnosis: GI bleed, melena, anemia, weight loss Procedure: PROCEDURE PERFORMED EGD with biopsy PROCEDURE: The procedure, risks and benefits were discussed with Patient/POA and informed consent was obtained. Anesthesia sedated Patient with Diprivan. Patient was placed in the left lateral decubitus position. EGD: The Pentax videoscope was introduced through the oropharynx and advanced to the second portion of the duodenum under direct visualization. Retroflexion was performed in the stomach. FINDINGS: The esophagus this was unremarkable except for a short segment of Stern's at the distal end measuring less than 1 cm this was biopsied The stomach there was some mild patchy erythema in the antrum but no ulcerations no erosions no blood or bleeding antral biopsies were taken for further evaluation The duodenum this was normal ESTIMATED BLOOD LOSS: None SPECIMENS REMOVED: Esophageal and gastric biopsies COMPLICATIONS: None IMPRESSION: Short segment Stern's esophagus Mild gastritis PLAN: Await biopsies Continue with pantoprazole 40 mg daily EGD in 2 years Advance diet as tolerated Assessment and Plan - Assessment (1) GI bleed Code(s): K92.2 - Gastrointestinal hemorrhage, unspecified Status: Acute (2) Cachectic Code(s): R64 - Cachexia Status: Chronic (3) COPD (chronic obstructive pulmonary disease) Code(s): J44.9 - Chronic obstructive pulmonary disease, unspecified Status: Chronic (4) Weakness Code(s): R53.1 - Weakness Status: Acute (5) Frequent falls Code(s): R29.6 - Repeated falls Status: Acute (6) Unintentional weight loss Code(s): R63.4 - Abnormal weight loss Status: Acute - Plan 57-year-old male with a past medical history of COPD, Stern's esophagus and EtOH abuse. He presents to the ED for an evaluation of weakness -per ED report he was found lying on the side of the road and was picked up by EMS. He was found to have a blood sugar of 50 at that time and endorsed that he had not eaten in a few days; given D50 by EMS. He says he has been so weak he could not walk and had multiple falls. He endorses black stool and occasional emesis with some red blood in it. GI bleed Likely secondary to esophageal varices, hx of Barretts esophagus -GI consulted, appreciate assistance. -s/p EGD 08/04 showing mild gastritis and short segment of Stern's esophagus. Repeat EGD in 2 yrs. -Protonix drip started by ED, discontinued. Changed to po Protonix 40mg BID. -GI has signed off. -patient is tolerating oral intake, Hgb stable at 11 Anemia - Likely acute on chronic, multifactorial due to active GIB, ongoing alcohol abuse and suspected liver disease -stool Hemoccult neg -hgb slowly trended down, 10.4 to 8.9, now Hgb much improved to 11. -iron studies: iron 24, TIBC 129, %sat 18.6, ferritin 1750 - suggests anemia of chronic disease -continue to monitor H&H as indicated, stable Hypotension/orthostatic hypotension Blood pressure in the low side ranging from 85/53 - 102/61 -s/p IV fluid half-normal saline times 2 L -Encourage increase fluid intake -Likely contributing to dizziness and weakness -Monitor orthostatic hypotension -Not on any blood pressure medication -Add LEOPOLDO hose bilateral -start on midodrine, increase dose today -monitor BP Severe Hypokalemia: K dropped to 2.7 -replace as needed -repeat BMP shows improvement with K 3.7 -monitor BMP EtOH abuse -[facility] protocol -Counseled cessation -Thiamine, folic acid, MVI daily -no signs of withdrawal, monitor for signs of withdrawal Weakness and unintentional weight loss Protein Calorie Malnutrition -CT abd/pelvis shows chronic pancreatitis with some calcifications in the head and uncinate process, diffuse hepatic fatty infiltration -B12 1258 -Hepatitis and HIV panel nonreactive -PT eval/tx - recommends rehab. Patient is self pay. Increased PT to daily . DW Case management. -Consult language specialist, appreciate recommendations -added Ensure to diet order TID Thrombocytopenia Likely secondary to liver disease -INR stable, 1.3 -platelets improving, 130 today -monitor for any bleeding -monitor CBC Transaminitis -Likely due to EtOH -Monitor LFT COPD Not in acute exacerbation, Ongoing tobaccoism -CXR shows chronic COPD changes but no acute process -continue on nicotine patch -Duonebs prn -monitor respiratory status Hypophosphatemia phos 1.7 -continue phosphorus repletion -monitor Phosphorous DVT prophylaxis: SCDs; Chemical prophylaxis contraindicated due to GI bleed Code Status: full code Discussed Condition With: patient, family and nurse Discharge Planning: Need extensive physical therapy. Patient is still extremely weak. PT/OT recommending rehab. Patient has no payer source.
[2018-08-12] MEDS: Multivit/Folic Acid/Minerals Chewable Tablets CHEW SCH (08:12)
[2018-08-12] MEDS: Sodium Chloride 0.9% 2 ML Flush BID IV.FLUSH SCH ×2 (08:15→20:38)
--- NOTE | 2018-08-12 16:39 | P.PNIM ---
Subjective Interval history: Follow-up on patient with GI bleed, generalized weakness, anemia, EtOH. Patient seen and examined sitting on the side of the bed, eating lunch, family at bedside. Patient stated doing well, denies any pain or shortness of breath, denies any headache, complains of some dizziness while ambulating with the therapy and some dizziness while sitting down however no dizziness at this moment. Patient denies any chest pain or shortness of breath, denies any abdominal pain, nausea, vomiting, diarrhea or constipation. Patient denies any blood in the stool. Patient denies any fever or chills. Physical Exam Vital signs: Vital Signs 08/11/18 20:00 08/12/18 00:00 08/12/18 08:00 Temperature 98.2 F 97.7 F 97.4 F L Pulse Rate 79 73 76 Respiratory Rate 18 17 16 Blood Pressure 106/60 92/59 L 101/57 L Pulse Oximetry 95 95 94 L 08/12/18 12:00 Temperature 97.9 F Pulse Rate 79 Respiratory Rate 17 Blood Pressure 100/57 L Pulse Oximetry 96 Intake & Output 08/11/18 08/12/18 08/12/18 18:59 06:59 18:59 Intake Total 1440 / 1440 580 / 580 Balance 1440 / 1440 580 / 580 Weight 46 kg Intake: Oral 1440 / 1440 580 / 580 Other: # Voids 5 2 # Bowel Movements 3 1 Narrative: GENERAL: Thin, cachectic appearing male patient, elderly looking, in no acute distress SKIN: Warm and dry.Superficial skin breakdown noted over bony prominence of right hip and upper coccyx. HEAD: Atraumatic. Normocephalic. EYES: Pupils equal and round. No scleral icterus. No injection or drainage. ENT: No nasal bleeding or discharge. Mucous membranes pink and moist. NECK: Trachea midline. No JVD. CARDIOVASCULAR: Regular rate and rhythm. RESPIRATORY: No accessory muscle use. Clear to auscultation. Breath sounds equal bilaterally. GASTROINTESTINAL: Abdomen flat soft, non-tender, nondistended. Hepatic and splenic margins not palpable. MUSCULOSKELETAL: Extremities without clubbing, cyanosis, or edema. No obvious deformities. NEUROLOGICAL: Awake and alert x3. No obvious cranial nerve deficits. Motor grossly within normal limits. Generalized weakness, moving all 4 extremities normal speech. PSYCHIATRIC: Appropriate mood and affect; insight and judgment normal. Results - Labs CBC & Chem 7: 08/11/18 06:44 08/11/18 06:44 Laboratory Results - last 24 hr 08/11/18 08/11/18 08/12/18 17:12 21:17 07:49 POC Glucose 112 H 136 H 126 H 08/12/18 12:08 POC Glucose 122 H - Procedures Date of procedure: 08/04/18 Pre-op diagnosis: GI bleed, melena, anemia, weight loss Procedure: PROCEDURE PERFORMED EGD with biopsy PROCEDURE: The procedure, risks and benefits were discussed with Patient/POA and informed consent was obtained. Anesthesia sedated Patient with Diprivan. Patient was placed in the left lateral decubitus position. EGD: The Pentax videoscope was introduced through the oropharynx and advanced to the second portion of the duodenum under direct visualization. Retroflexion was performed in the stomach. FINDINGS: The esophagus this was unremarkable except for a short segment of Stern's at the distal end measuring less than 1 cm this was biopsied The stomach there was some mild patchy erythema in the antrum but no ulcerations no erosions no blood or bleeding antral biopsies were taken for further evaluation The duodenum this was normal ESTIMATED BLOOD LOSS: None SPECIMENS REMOVED: Esophageal and gastric biopsies COMPLICATIONS: None IMPRESSION: Short segment Stern's esophagus Mild gastritis PLAN: Await biopsies Continue with pantoprazole 40 mg daily EGD in 2 years Advance diet as tolerated Assessment and Plan - Assessment (1) GI bleed Code(s): K92.2 - Gastrointestinal hemorrhage, unspecified Status: Acute (2) Cachectic Code(s): R64 - Cachexia Status: Chronic (3) COPD (chronic obstructive pulmonary disease) Code(s): J44.9 - Chronic obstructive pulmonary disease, unspecified Status: Chronic (4) Weakness Code(s): R53.1 - Weakness Status: Acute (5) Frequent falls Code(s): R29.6 - Repeated falls Status: Acute (6) Unintentional weight loss Code(s): R63.4 - Abnormal weight loss Status: Acute - Plan 57-year-old male with a past medical history of COPD, Stern's esophagus and EtOH abuse. He presents to the ED for an evaluation of weakness -per ED report he was found lying on the side of the road and was picked up by EMS. He was found to have a blood sugar of 50 at that time and endorsed that he had not eaten in a few days; given D50 by EMS. He says he has been so weak he could not walk and had multiple falls. He endorses black stool and occasional emesis with some red blood in it. GI bleed Likely secondary to esophageal varices, hx of Barretts esophagus -GI consulted, appreciate assistance. -s/p EGD 08/04 showing mild gastritis and short segment of Stern's esophagus. Repeat EGD in 2 yrs. -Protonix drip started by ED, discontinued. Changed to po Protonix 40mg BID. -GI has signed off. -patient is tolerating oral intake, Hgb stable at 11 -No active bleeding Anemia - Likely acute on chronic, multifactorial due to active GIB, ongoing alcohol abuse and suspected liver disease -stool Hemoccult neg -hgb slowly trended down, 10.4 to 8.9, now Hgb much improved to 11. -iron studies: iron 24, TIBC 129, %sat 18.6, ferritin 1750 - suggests anemia of chronic disease -continue to monitor H&H as indicated, stable Hypotension/orthostatic hypotension Blood pressure in the low side ranging from 85/53 - 102/61 -s/p IV fluid half-normal saline times 2 L -Encourage increase fluid intake -Likely contributing to dizziness and weakness -Monitor orthostatic hypotension -Not on any blood pressure medication -Add LEOPOLDO hose bilateral -start on midodrine, continue increased dose, BP improving -monitor BP Severe Hypokalemia: K dropped to 2.7 -replace as needed -repeat BMP shows improvement with K 3.7 -monitor BMP EtOH abuse Transaminitis, Likely due to EtOH Hypophosphatemia, likely due to EtOH -[facility] protocol -Counseled cessation -Thiamine, folic acid, MVI daily -no signs of withdrawal, monitor for signs of withdrawal -Monitor LFT, phosphorus level Weakness and unintentional weight loss Protein Calorie Malnutrition Hypoalbuminemia -CT abd/pelvis shows chronic pancreatitis with some calcifications in the head and uncinate process, diffuse hepatic fatty infiltration -B12 1258, albumin level 2.3, total protein 5.5 -Hepatitis and HIV panel nonreactive -PT eval/tx - recommends rehab. Patient is self pay. Increased PT to daily . DW Case management. -Consult destaticizer feeder, appreciate recommendations: Nutrition dense foods low-fat yogurt and milk add Ensure pudding twice daily to add to nutrition -added Ensure to diet order TID -Weight on admission 47.21 kg, on 08/10/18: 48.6 kg, weight today 08/11/18: 46 kg -continue extensive Physical therapy, will like need a walker to go home for increase mobility Thrombocytopenia Likely secondary to liver disease -INR stable, 1.3 -platelets improving, 253 on 08/11/18 -monitor for any bleeding -monitor CBC COPD Not in acute exacerbation, Ongoing tobaccoism -CXR shows chronic COPD changes but no acute process -continue on nicotine patch -Duonebs prn -monitor respiratory status DVT prophylaxis: SCDs; Chemical prophylaxis contraindicated due to GI bleed Code Status: full code Discussed Condition With: patient and nurse Discharge Planning: Need extensive physical therapy. Patient is still extremely weak. PT/OT recommending rehab. Patient has no payer source.
[2018-08-13] MEDS: Multivit/Folic Acid/Minerals Chewable Tablets CHEW SCH (09:12)
[2018-08-13] MEDS: Sodium Chloride 0.9% 2 ML Flush BID IV.FLUSH SCH ×2 (09:13→20:06)
--- NOTE | 2018-08-13 11:20 | P.PNIM ---
Subjective Interval history: Follow-up on patient with GI bleed, generalized weakness, anemia, EtOH. Patient seen and examined sitting in the chair, worried about weight, stated he lose weight since admission. However stated that he is eating good and eating everything from the tray. Patient complains of some dizziness while walking with a physical therapy and have to stop and rest. However while talking to him and asking questions he answers by nodding his head sideways without any dizziness. Patient denies any headache, chest pain or shortness of breath, denies any abdominal pain, nausea, vomiting, diarrhea or constipation. Patient denies any fever or chills. Physical Exam Vital signs: Vital Signs 08/12/18 16:00 08/12/18 20:00 08/13/18 00:00 Temperature 97.6 F 98.2 F 98.4 F Pulse Rate 67 75 78 Respiratory Rate 16 17 17 Blood Pressure 103/66 95/56 L 95/57 L Pulse Oximetry 96 100 95 08/13/18 08:00 Temperature 97.5 F L Pulse Rate 68 Respiratory Rate 19 Blood Pressure 102/56 L Pulse Oximetry 95 Intake & Output 08/12/18 08/13/18 08/13/18 19:59 06:59 18:59 Intake Total Balance Weight Intake: Oral Other: # Voids Date of Last Bowel Movement 08/13/18 # Bowel Movements Narrative: GENERAL: Thin, cachectic appearing male patient, elderly looking, in no acute distress SKIN: Warm and dry.Superficial skin breakdown noted over bony prominence of right hip and upper coccyx. HEAD: Atraumatic. Normocephalic. EYES: Pupils equal and round. No scleral icterus. No injection or drainage. ENT: No nasal bleeding or discharge. Mucous membranes pink and moist. NECK: Trachea midline. No JVD. CARDIOVASCULAR: Regular rate and rhythm. RESPIRATORY: No accessory muscle use. Clear to auscultation. Breath sounds equal bilaterally. GASTROINTESTINAL: Abdomen flat soft, non-tender, nondistended. Hepatic and splenic margins not palpable. MUSCULOSKELETAL: Extremities without clubbing, cyanosis, or edema. No obvious deformities. NEUROLOGICAL: Awake and alert x3. No obvious cranial nerve deficits. Motor grossly within normal limits. Generalized weakness, moving all 4 extremities normal speech. PSYCHIATRIC: Appropriate mood and affect; insight and judgment normal. Results - Labs CBC & Chem 7: 08/11/18 06:44 08/11/18 06:44 Laboratory Results - last 24 hr 08/12/18 08/12/18 08/13/18 16:25 19:15 07:47 POC Glucose 124 H 125 H 93 08/13/18 11:15 POC Glucose 151 H - Procedures Date of procedure: 08/04/18 Pre-op diagnosis: GI bleed, melena, anemia, weight loss Procedure: PROCEDURE PERFORMED EGD with biopsy PROCEDURE: The procedure, risks and benefits were discussed with Patient/POA and informed consent was obtained. Anesthesia sedated Patient with Diprivan. Patient was placed in the left lateral decubitus position. EGD: The Pentax videoscope was introduced through the oropharynx and advanced to the second portion of the duodenum under direct visualization. Retroflexion was performed in the stomach. FINDINGS: The esophagus this was unremarkable except for a short segment of Stern's at the distal end measuring less than 1 cm this was biopsied The stomach there was some mild patchy erythema in the antrum but no ulcerations no erosions no blood or bleeding antral biopsies were taken for further evaluation The duodenum this was normal ESTIMATED BLOOD LOSS: None SPECIMENS REMOVED: Esophageal and gastric biopsies COMPLICATIONS: None IMPRESSION: Short segment Stern's esophagus Mild gastritis PLAN: Await biopsies Continue with pantoprazole 40 mg daily EGD in 2 years Advance diet as tolerated Assessment and Plan - Assessment (1) GI bleed Code(s): K92.2 - Gastrointestinal hemorrhage, unspecified Status: Acute (2) Cachectic Code(s): R64 - Cachexia Status: Chronic (3) COPD (chronic obstructive pulmonary disease) Code(s): J44.9 - Chronic obstructive pulmonary disease, unspecified Status: Chronic (4) Weakness Code(s): R53.1 - Weakness Status: Acute (5) Frequent falls Code(s): R29.6 - Repeated falls Status: Acute (6) Unintentional weight loss Code(s): R63.4 - Abnormal weight loss Status: Acute - Plan 57-year-old male with a past medical history of COPD, Stern's esophagus and EtOH abuse. He presents to the ED for an evaluation of weakness -per ED report he was found lying on the side of the road and was picked up by EMS. He was found to have a blood sugar of 50 at that time and endorsed that he had not eaten in a few days; given D50 by EMS. He says he has been so weak he could not walk and had multiple falls. He endorses black stool and occasional emesis with some red blood in it. GI bleed Likely secondary to esophageal varices, hx of Barretts esophagus -GI consulted, appreciate assistance. -s/p EGD 08/04 showing mild gastritis and short segment of Stern's esophagus. Repeat EGD in 2 yrs. -Protonix drip started by ED, discontinued. Changed to po Protonix 40mg BID. -GI has signed off. -patient is tolerating oral intake, Hgb stable at 11 -No active bleeding Anemia - Likely acute on chronic, multifactorial due to active GIB, ongoing alcohol abuse and suspected liver disease -stool Hemoccult neg -hgb slowly trended down, 10.4 to 8.9, now Hgb much improved to 11. -iron studies: iron 24, TIBC 129, %sat 18.6, ferritin 1750 - suggests anemia of chronic disease -continue to monitor H&H as indicated, stable Hypotension/orthostatic hypotension Blood pressure in the low side ranging from 85/53 - 102/61 -s/p IV fluid half-normal saline times 2 L, restart IV fluid for low blood pressures and dizziness -Encourage increase fluid intake -Likely contributing to dizziness and weakness -Monitor orthostatic hypotension -Not on any blood pressure medication -Add LEOPOLDO hose bilateral -Increase midodrine dose -monitor BP Severe Hypokalemia K dropped to 2.7 -replace as needed -repeat BMP shows improvement with K 3.7 -monitor BMP EtOH abuse Transaminitis, Likely due to EtOH Hypophosphatemia, likely due to EtOH -[facility] protocol -Counseled cessation -Thiamine, folic acid, MVI daily -no signs of withdrawal, monitor for signs of withdrawal -Monitor LFT, phosphorus level Weakness and unintentional weight loss Protein Calorie Malnutrition Hypoalbuminemia -CT abd/pelvis shows chronic pancreatitis with some calcifications in the head and uncinate process, diffuse hepatic fatty infiltration -B12 1258, albumin level 2.3, total protein 5.5 -Hepatitis and HIV panel nonreactive -PT eval/tx - recommends rehab. Patient is self pay. Increased PT to daily . DW Case management. -Consult podiatry doctor, appreciate recommendations: Nutrition dense foods low-fat yogurt and milk add Ensure pudding twice daily to add to nutrition -added Ensure to diet order TID, encouraged to drink -Weight on admission 47.21 kg, on 08/10/18: 48.6 kg, weight 08/11/18: 46 kg, today 46 -continue extensive Physical therapy, will like need a walker to go home for increase mobility Thrombocytopenia Likely secondary to liver disease -INR stable, 1.3 -platelets improving, 253 on 08/11/18 -monitor for any bleeding -monitor CBC COPD Not in acute exacerbation, Ongoing tobaccoism -CXR shows chronic COPD changes but no acute process -continue on nicotine patch -Duonebs prn -monitor respiratory status -counseling on smoking cessation DVT prophylaxis: SCDs; Chemical prophylaxis contraindicated due to GI bleed Code Status: full code Discussed Condition With: patient and nurse Discharge Planning: Need extensive physical therapy. Patient is still extremely weak. PT/OT recommending rehab. Patient has no payer source.
[2018-08-13] MEDS: Sodium Chloride 0.45 % Inj 1,000 ML IV.CONT SCH (14:43)
[2018-08-14] MEDS: Sodium Chloride 0.45 % Inj 1,000 ML IV.CONT SCH ×4 (01:02→22:31)
[2018-08-14 06:03] LABS: Hematocrit 29.2 % (39.0-51.0); Hemoglobin 9.7 gm/dL (13.0-17.0); Mean Corpuscular HGB Conc 33.2 % (32.0-36.0); Mean Corpuscular Hemoglobin 38.9 pg (27.0-34.0); Mean Corpuscular Volume 117.1 fL (80.0-100.0); Mean Platelet Volume 8.7 fL (7.0-11.0); Platelet Count 360 th/mm3 (150-450); Red Cell Distribution Width 15.3 % (11.6-17.2)
[2018-08-14 06:28] LABS: Alanine Aminotransferase 23 U/L (12-78); Albumin 2.5 g/dL (3.4-5.0); Anion Gap 7 meq/L (5-15); Aspartate Aminotransferase 17 U/L (15-37); Blood Urea Nitrogen 9 mg/dL (7-18); Calcium 8.1 mg/dL (8.5-10.1); Chloride 103 meq/L (98-107); Glomerular Filtration Rate Greater Than 89 mL/min (>89); Glucose,Random 93 mg/dL (74-106); Sodium 140 meq/L (136-145)
[2018-08-14 06:30] LABS: Alkaline Phosphatase 139 U/L (45-117); Total Protein 5.8 g/dL (6.4-8.2)
[2018-08-14] MEDS: Multivit/Folic Acid/Minerals Chewable Tablets CHEW SCH (09:05)
[2018-08-14] MEDS: Sodium Chloride 0.9% 2 ML Flush BID IV.FLUSH SCH ×2 (09:05→22:23)
--- NOTE | 2018-08-14 16:23 | P.PNIM ---
Subjective Interval history: Follow-up on patient with GI bleed, generalized weakness, anemia, EtOH. Patient seen and examined sitting on the side of the bed, eating lunch stated have no problem eating. Patient stated he had been walking around however gets dizzy when he walked further so he stopped and rest. Patient denies any headache or dizziness at the moment while sitting in the bed. Denies any chest pain or shortness of breath, denies abdominal pain, nausea, vomiting, diarrhea or constipation. Patient denies any blood in his stool. Patient denies any fever or chills. Discussed discharge planning, patient stated he is ready to go home just let him know when and he will pack up and dressed. Discussed discharge planning with high school social studies teacher, will provide walker upon discharge. Will discharge when cleared with physical therapy Physical Exam Vital signs: Vital Signs 08/13/18 20:00 08/14/18 00:00 08/14/18 08:00 Temperature 98.9 F 97.7 F 97.9 F Pulse Rate 83 78 70 Respiratory Rate 18 18 17 Blood Pressure 95/64 L 103/58 L 105/59 L Pulse Oximetry 94 L 95 96 08/14/18 12:00 Temperature 97.8 F Pulse Rate 78 Respiratory Rate 17 Blood Pressure 97/57 L Pulse Oximetry 96 Intake & Output 08/13/18 08/14/18 08/14/18 18:59 06:59 18:59 Intake Total 1200 / 1200 1480 / 1480 805 / 805 Output Total 1000 / 1000 Balance 1200 / 1200 480 / 480 805 / 805 Weight 51.2 kg Intake: IV 1000 / 1000 805 / 805 1/2 Normal Saline Inj 1,000 ML 1000 / 1000 805 / 805 @ 100 mls/hr IV.CONT .Q10H [facility] Rx#:[id number] Oral 1200 / 1200 480 / 480 Output: Urine 1000 / 1000 Other: # Voids 5 Date of Last Bowel Movement 08/13/18 08/13/18 08/13/18 # Bowel Movements 3 Results - Labs CBC & Chem 7: 08/14/18 05:23 08/14/18 05:23 Laboratory Results - last 24 hr 08/13/18 08/14/18 08/14/18 19:31 05:23 05:23 WBC 10.0 RBC 2.50 L Hgb 9.7 L Hct 29.2 L MCV 117.1 H MCH 38.9 H MCHC 33.2 RDW 15.3 Plt Count 360 D MPV 8.7 Sodium 140 Potassium 4.0 Chloride 103 Carbon Dioxide 30.0 Anion Gap 7 BUN 9 Creatinine 0.50 L Estimated GFR Greater than 89 POC Glucose 121 H Random Glucose 93 Calcium 8.1 L Total Bilirubin 0.6 AST 17 ALT 23 Alkaline Phosphatase 139 H Total Protein 5.8 L Albumin 2.5 L 08/14/18 08/14/18 08:04 11:52 WBC RBC Hgb Hct MCV MCH MCHC RDW Plt Count MPV Sodium Potassium Chloride Carbon Dioxide Anion Gap BUN Creatinine Estimated GFR POC Glucose 177 H 123 H Random Glucose Calcium Total Bilirubin AST ALT Alkaline Phosphatase Total Protein Albumin - Procedures Date of procedure: 08/04/18 Pre-op diagnosis: GI bleed, melena, anemia, weight loss Procedure: PROCEDURE PERFORMED EGD with biopsy PROCEDURE: The procedure, risks and benefits were discussed with Patient/POA and informed consent was obtained. Anesthesia sedated Patient with Diprivan. Patient was placed in the left lateral decubitus position. EGD: The Pentax videoscope was introduced through the oropharynx and advanced to the second portion of the duodenum under direct visualization. Retroflexion was performed in the stomach. FINDINGS: The esophagus this was unremarkable except for a short segment of Stern's at the distal end measuring less than 1 cm this was biopsied The stomach there was some mild patchy erythema in the antrum but no ulcerations no erosions no blood or bleeding antral biopsies were taken for further evaluation The duodenum this was normal ESTIMATED BLOOD LOSS: None SPECIMENS REMOVED: Esophageal and gastric biopsies COMPLICATIONS: None IMPRESSION: Short segment Stern's esophagus Mild gastritis PLAN: Await biopsies Continue with pantoprazole 40 mg daily EGD in 2 years Advance diet as tolerated Assessment and Plan - Assessment (1) GI bleed Code(s): K92.2 - Gastrointestinal hemorrhage, unspecified Status: Acute (2) Cachectic Code(s): R64 - Cachexia Status: Chronic (3) COPD (chronic obstructive pulmonary disease) Code(s): J44.9 - Chronic obstructive pulmonary disease, unspecified Status: Chronic (4) Weakness Code(s): R53.1 - Weakness Status: Acute (5) Frequent falls Code(s): R29.6 - Repeated falls Status: Acute (6) Unintentional weight loss Code(s): R63.4 - Abnormal weight loss Status: Acute - Plan 57-year-old male with a past medical history of COPD, Stern's esophagus and EtOH abuse. He presents to the ED for an evaluation of weakness -per ED report he was found lying on the side of the road and was picked up by EMS. He was found to have a blood sugar of 50 at that time and endorsed that he had not eaten in a few days; given D50 by EMS. He says he has been so weak he could not walk and had multiple falls. He endorses black stool and occasional emesis with some red blood in it. GI bleed Likely secondary to esophageal varices, hx of Barretts esophagus -GI consulted, appreciate assistance. -s/p EGD 08/04 showing mild gastritis and short segment of Stern's esophagus. Repeat EGD in 2 yrs. -Protonix drip started by ED, discontinued. Changed to po Protonix 40mg BID. -GI has signed off. -patient is tolerating oral intake, Hgb stable at 11 -No active bleeding Anemia - Likely acute on chronic, multifactorial due to active GIB, ongoing alcohol abuse and suspected liver disease -stool Hemoccult neg -hgb slowly trended down, 10.4 to 8.9, now Hgb much improved to 11. -iron studies: iron 24, TIBC 129, %sat 18.6, ferritin 1750 - suggests anemia of chronic disease -continue to monitor H&H as indicated, stable Hypotension/orthostatic hypotension Blood pressure in the low side ranging from 85/53 - 102/61 -s/p IV fluid half-normal saline times 2 L, restart IV fluid for low blood pressures and dizziness -Encourage increase fluid intake -Likely contributing to dizziness and weakness -Monitor orthostatic hypotension -Not on any blood pressure medication -Add LEOPOLDO hose bilateral -Increase midodrine dose -BP improving, monitor BP Severe Hypokalemia K dropped to 2.7, improved, 4.0 today 08/14/18 -replace as needed -monitor BMP EtOH abuse Transaminitis, Likely due to EtOH Hypophosphatemia, likely due to EtOH -[facility] protocol -Counseled cessation -Thiamine, folic acid, MVI daily -no signs of withdrawal, monitor for signs of withdrawal -Monitor LFT, phosphorus level Weakness and unintentional weight loss Protein Calorie Malnutrition Hypoalbuminemia -CT abd/pelvis shows chronic pancreatitis with some calcifications in the head and uncinate process, diffuse hepatic fatty infiltration -B12 1258, albumin level 2.3, total protein 5.5 -Hepatitis and HIV panel nonreactive -PT eval/tx - recommends rehab. Patient is self pay. Increased PT to daily . DW Case management. -Consult silviculture teacher, appreciate recommendations: Nutrition dense foods low-fat yogurt and milk add Ensure pudding twice daily to add to nutrition -added Ensure to diet order TID, encouraged to drink -Weight on admission 47.21 kg, on 08/10/18: 48.6 kg, weight 08/11/18: 46 kg, today 46 -continue extensive Physical therapy, likely need a walker to go home for increase mobility and safety Thrombocytopenia Likely secondary to liver disease -INR stable, 1.3 -platelets improving, 360 on 08/14/18 -monitor for any bleeding -monitor CBC COPD Not in acute exacerbation, Ongoing tobaccoism -CXR shows chronic COPD changes but no acute process -continue on nicotine patch -Duonebs prn -monitor respiratory status -counseling on smoking cessation -no SOB. no Wheezes DVT prophylaxis: SCDs; Chemical prophylaxis contraindicated due to GI bleed Code Status: full code Discussed Condition With: patient, and nurse Agriscience Instructor and mDR Discharge Planning: Need extensive physical therapy. Patient is still extremely weak. PT/OT recommending rehab. Patient has no payer source. Discharge planning with high school social studies teacher, will provide walker upon discharge. Will discharge when cleared with physical therapy
[2018-08-15] MEDS: Sodium Chloride 0.45 % Inj 1,000 ML IV.CONT SCH ×3 (05:07→17:36)
[2018-08-15] MEDS: Sodium Chloride 0.9% 2 ML Flush BID IV.FLUSH SCH ×2 (09:05→22:16)
[2018-08-15] MEDS: Multivit/Folic Acid/Minerals Chewable Tablets CHEW SCH (09:05)
--- NOTE | 2018-08-15 15:51 | P.PNIM ---
Subjective Interval history: Follow-up on patient with GI bleed, generalized weakness, anemia, EtOH. Patient seen and examined laying in bed, stated doing better, stated he walked a lot today however he felt some dizziness so he stop and rest. Patient denies any GI bleed or blood in the stool. Patient denies any headache , chest pain or shortness of breath, denies any nausea, vomiting, diarrhea or constipation. Patient denies any fever or chills. Discharge planning discussed patient stated he will be ready for discharge whenever we think he is ready to go. Discussed physical therapy and have extensive physical therapy while he is here. Physical Exam Vital signs: Vital Signs 08/14/18 16:00 08/14/18 20:00 08/15/18 00:00 Temperature 99.7 F H 99.2 F 100.0 F H Pulse Rate 78 86 89 Respiratory Rate 17 17 18 Blood Pressure 125/65 106/60 97/59 L Pulse Oximetry 96 96 94 L 08/15/18 04:00 08/15/18 05:59 08/15/18 08:00 Temperature 98.9 F 99 F Pulse Rate 94 H 81 Respiratory Rate 17 16 Blood Pressure 81/48 L 98/52 L 106/59 L Pulse Oximetry 96 94 L 08/15/18 12:00 Temperature 98.7 F Pulse Rate 79 Respiratory Rate 16 Blood Pressure 102/62 Pulse Oximetry 95 Intake & Output 08/14/18 08/15/18 08/15/18 18:59 06:59 18:59 Intake Total 3551 / 3551 2700 / 2700 965.6 / 965.6 Output Total 1200 / 1200 Balance 3551 / 3551 1500 / 1500 965.6 / 965.6 Weight 49.6 kg Intake: IV 1635 / 1635 1999 965.6 / 965.6 1/2 Normal Saline Inj 1,000 ML 1635 / 1635 1999 965.6 / 965.6 @ 100 mls/hr IV.CONT .Q10H [facility] Rx#:[id number] Oral 1676 / 1676 700 / 700 Oral Supplement 240 / 240 Output: Urine 1200 / 1200 Other: # Voids 10 Date of Last Bowel Movement 08/14/18 08/15/18 # Bowel Movements 5 Narrative: GENERAL: Thin, cachectic appearing male patient, elderly looking, in no acute distress SKIN: Warm and dry.Superficial skin breakdown noted over bony prominence of right hip and upper coccyx. HEAD: Atraumatic. Normocephalic. EYES: Pupils equal and round. No scleral icterus. No injection or drainage. ENT: No nasal bleeding or discharge. Mucous membranes pink and moist. NECK: Trachea midline. No JVD. CARDIOVASCULAR: Regular rate and rhythm. RESPIRATORY: No accessory muscle use. Clear to auscultation. Breath sounds equal bilaterally. GASTROINTESTINAL: Abdomen flat soft, non-tender, nondistended. Hepatic and splenic margins not palpable. MUSCULOSKELETAL: Extremities without clubbing, cyanosis, or edema. No obvious deformities. NEUROLOGICAL: Awake and alert x3. No obvious cranial nerve deficits. Motor grossly within normal limits. Generalized weakness, moving all 4 extremities normal speech. PSYCHIATRIC: Appropriate mood and affect; insight and judgment normal. Results - Labs CBC & Chem 7: 08/14/18 05:23 08/14/18 05:23 Laboratory Results - last 24 hr 08/14/18 08/14/18 08/15/18 16:44 22:25 07:21 POC Glucose 117 H 122 H 176 H 08/15/18 11:51 POC Glucose 139 H - Procedures Date of procedure: 08/04/18 Pre-op diagnosis: GI bleed, melena, anemia, weight loss Procedure: PROCEDURE PERFORMED EGD with biopsy PROCEDURE: The procedure, risks and benefits were discussed with Patient/POA and informed consent was obtained. Anesthesia sedated Patient with Diprivan. Patient was placed in the left lateral decubitus position. EGD: The Pentax videoscope was introduced through the oropharynx and advanced to the second portion of the duodenum under direct visualization. Retroflexion was performed in the stomach. FINDINGS: The esophagus this was unremarkable except for a short segment of Stern's at the distal end measuring less than 1 cm this was biopsied The stomach there was some mild patchy erythema in the antrum but no ulcerations no erosions no blood or bleeding antral biopsies were taken for further evaluation The duodenum this was normal ESTIMATED BLOOD LOSS: None SPECIMENS REMOVED: Esophageal and gastric biopsies COMPLICATIONS: None IMPRESSION: Short segment Stern's esophagus Mild gastritis PLAN: Await biopsies Continue with pantoprazole 40 mg daily EGD in 2 years Advance diet as tolerated Assessment and Plan - Assessment (1) GI bleed Code(s): K92.2 - Gastrointestinal hemorrhage, unspecified Status: Acute (2) Cachectic Code(s): R64 - Cachexia Status: Chronic (3) COPD (chronic obstructive pulmonary disease) Code(s): J44.9 - Chronic obstructive pulmonary disease, unspecified Status: Chronic (4) Weakness Code(s): R53.1 - Weakness Status: Acute (5) Frequent falls Code(s): R29.6 - Repeated falls Status: Acute (6) Unintentional weight loss Code(s): R63.4 - Abnormal weight loss Status: Acute - Plan 57-year-old male with a past medical history of COPD, Stern's esophagus and EtOH abuse. He presents to the ED for an evaluation of weakness -per ED report he was found lying on the side of the road and was picked up by EMS. He was found to have a blood sugar of 50 at that time and endorsed that he had not eaten in a few days; given D50 by EMS. He says he has been so weak he could not walk and had multiple falls. He endorses black stool and occasional emesis with some red blood in it. GI bleed Likely secondary to esophageal varices, hx of Barretts esophagus -GI consulted, appreciate assistance. -s/p EGD 08/04 showing mild gastritis and short segment of Stern's esophagus. Repeat EGD in 2 yrs. -Protonix drip started by ED, discontinued. Changed to po Protonix 40mg BID. -GI has signed off. -patient is tolerating oral intake, Hgb stable at 11 -No active bleeding Anemia - Likely acute on chronic, multifactorial due to active GIB, ongoing alcohol abuse and suspected liver disease -stool Hemoccult neg -hgb slowly trended down, 10.4 to 8.9, now Hgb much improved to 11. -iron studies: iron 24, TIBC 129, %sat 18.6, ferritin 1750 - suggests anemia of chronic disease -continue to monitor H&H as indicated, stable Hypotension/orthostatic hypotension Blood pressure in the low side ranging from 85/53 - 102/61 -s/p IV fluid half-normal saline times 2 L, restart IV fluid for low blood pressures and dizziness -Encourage increase fluid intake -Likely contributing to dizziness and weakness -Monitor orthostatic hypotension -Not on any blood pressure medication -Add LEOPOLDO hose bilateral -Increase midodrine dose again for persistent low blood pressure and dizziness -monitor BP Severe Hypokalemia, resolved K dropped to 2.7, improved, 4.0 on 08/14/18 -replace as needed -monitor BMP EtOH abuse Transaminitis, Likely due to EtOH, resolved Hypophosphatemia, likely due to EtOH -[facility] protocol -Counseled cessation -Thiamine, folic acid, MVI daily -no signs of withdrawal, monitor for signs of withdrawal -Monitor LFT, phosphorus level Weakness and unintentional weight loss Protein Calorie Malnutrition Hypoalbuminemia -CT abd/pelvis shows chronic pancreatitis with some calcifications in the head and uncinate process, diffuse hepatic fatty infiltration -B12 1258, albumin level 2.3, total protein 5.5 -Hepatitis and HIV panel nonreactive -PT eval/tx - recommends rehab. Patient is self pay. Increased PT to daily . DW Case management. -Consult circular ripsaw operator, appreciate recommendations: Nutrition dense foods low-fat yogurt and milk add Ensure pudding twice daily to add to nutrition -added Ensure to diet order TID, encouraged to drink -Weight on admission 47.21 kg, on 08/10/18: 48.6 kg, weight 08/11/18: 46 kg, today 46 -continue extensive Physical therapy, likely need a walker to go home for increase mobility and safety Thrombocytopenia Likely secondary to liver disease -INR stable, 1.3 -platelets improving, 360 on 08/14/18 -monitor for any bleeding -monitor CBC COPD Not in acute exacerbation, Ongoing tobaccoism -CXR shows chronic COPD changes but no acute process -continue on nicotine patch -Duonebs prn -monitor respiratory status -counseling on smoking cessation -no SOB. no Wheezes DVT prophylaxis: SCDs; Chemical prophylaxis contraindicated due to GI bleed Code Status: full code Discussed Condition With: patient and nurse Discharge Planning: Need extensive physical therapy. Patient is still extremely weak. PT/OT recommending rehab. Patient has no payer source. Discharge planning with social work administrator, will provide walker upon discharge. Will discharge when cleared with physical therapy
[2018-08-15] MEDS: Acetaminophen 325 MG Tablet PO PRN (18:01)
[2018-08-15 19:37] LABS: Bacteria,Urine Few /hpf; Bilirubin,Urine Negative (Negative); Clarity,Urine Clear (Clear); Color,Urine Yellow (Yellw/Straw); Glucose,Urine (UA) Negative (Negative); Leukocyte Esterase,Urine Negative (Negative); Mucus,Urine Few /lpf (Occasional); Nitrite,Urine Negative (Negative); Specific Gravity,Urine 1.008 (1.002-1.035); Squamous Epithelial Cell,Urine <1 /hpf (0-5)
[2018-08-16] MEDS: Sodium Chloride 0.45 % Inj 1,000 ML IV.CONT SCH ×3 (02:41→19:33)
[2018-08-16] MEDS: Acetaminophen 325 MG Tablet PO PRN ×3 (04:54→18:26)
[2018-08-16 06:13] LABS: Baso # (Auto) 0.1 th/mm3 (0.0-0.2); Baso % (Auto) 0.8 % (0.0-2.0); Eos % (Auto) 0.1 % (0.0-4.0); Hematocrit 26.4 % (39.0-51.0); Hemoglobin 8.9 gm/dL (13.0-17.0); Lymph # (Auto) 1.5 th/mm3 (1.0-4.8); Lymph % (Auto) 8.6 % (9.0-44.0); Mean Corpuscular HGB Conc 33.7 % (32.0-36.0); Mean Corpuscular Hemoglobin 38.7 pg (27.0-34.0); Mean Corpuscular Volume 114.9 fL (80.0-100.0); Mean Platelet Volume 8.7 fL (7.0-11.0); Mono # (Auto) 2.2 th/mm3 (0.0-0.9); Neut # (Auto) 13.2 th/mm3 (1.8-7.7); Neut % (Auto) 77.5 % (16.0-70.0); Platelet Count 363 th/mm3 (150-450); Red Cell Distribution Width 15.5 % (11.6-17.2)
[2018-08-16 06:37] LABS: Alanine Aminotransferase 18 U/L (12-78); Albumin 2.2 g/dL (3.4-5.0); Anion Gap 8 meq/L (5-15); Aspartate Aminotransferase 17 U/L (15-37); Blood Urea Nitrogen 8 mg/dL (7-18); Calcium 7.7 mg/dL (8.5-10.1); Carbon Dioxide 26.5 meq/L (21.0-32.0); Chloride 104 meq/L (98-107); Glomerular Filtration Rate Greater Than 89 mL/min (>89); Glucose,Random 97 mg/dL (74-106); Potassium 3.9 meq/L (3.5-5.1); Sodium 138 meq/L (136-145)
[2018-08-16 06:46] LABS: Alkaline Phosphatase 154 U/L (45-117); Total Protein 5.7 g/dL (6.4-8.2)
[2018-08-16] MEDS: Multivit/Folic Acid/Minerals Chewable Tablets CHEW SCH (08:22)
[2018-08-16] MEDS: Sodium Chloride 0.9% 2 ML Flush BID IV.FLUSH SCH ×3 (08:26→22:23)
[2018-08-16 09:07] LABS: Eosinophils 1 % (0-4); Lymphocytes 4 % (9-44); Monocytes 12 % (0-8); Platelet Estimate Normal (Normal); Platelet Morphology Normal (Normal)
--- NOTE | 2018-08-16 09:37 | XR ---
EXAM DATE: 08/16/2018 9:31 AM EST AGE/SEX: 57 years / Male INDICATIONS: Short of breath and fever since last night. CLINICAL DATA: This is the patient's initial encounter. Patient reports that signs and symptoms have been present for 1 day and indicates a pain score of 0/10. MEDICAL/SURGICAL HISTORY: Chronic obstructive pulmonary disease. None. COMPARISON: [facility] – [place] 1[place] SINGLE AP, 08/03/2018. . FINDINGS: Lungs are hyperexpanded with mild elevation of the left hemidiaphragm. No new focal pleural or parenc hymal opacities. Cardiomediastinal contours are stable. Remainder of exam is unchanged. CONCLUSION: 1. No acute abnormality or significant interval change. Electronically signed by: Minor Bowman MD 08/16/2018 9:36 AM EST
--- NOTE | 2018-08-16 10:05 | P.PNIM ---
Subjective Interval history: Follow-up on patient with GI bleed, generalized weakness, anemia, EtOH. Nurse reported patient having fever started yesterday with a with a temperature of 101.7, last night 100.7 and this morning 101. Patient sitting on the side of the bed, eating breakfast, denies any fever or chills, denies any congestion or shortness of breath. Patient stated he have some coughing that but no phlegm coming out. Patient states that history of smoking. Patient denies any abdominal pain, nausea, vomiting, diarrhea or constipation. Patient denies any pain in urination. Physical Exam Vital signs: Vital Signs 08/15/18 12:00 08/15/18 16:00 08/15/18 20:00 Temperature 98.7 F 101.7 F H 99.1 F Pulse Rate 79 84 74 Respiratory Rate 16 16 18 Blood Pressure 102/62 106/64 94/56 L Pulse Oximetry 95 95 97 08/16/18 00:00 08/16/18 04:00 08/16/18 07:51 Temperature 100.7 F H 101.0 F H 98.9 F Pulse Rate 84 94 H 86 Respiratory Rate 19 19 16 Blood Pressure 94/56 L 83/53 L 83/53 L Pulse Oximetry 92 L 93 L 94 L Intake & Output 08/15/18 08/16/18 08/16/18 18:59 06:59 18:59 Intake Total 3837.6 / 3837.6 650 / 650 Output Total 1850 / 1850 Balance 3837.6 / 3837.6 -1200 / -1200 Weight 51.4 kg Intake: IV 1801.6 / 1801.6 1/2 Normal Saline Inj 1,000 ML 1801.6 / 1801.6 @ 100 mls/hr IV.CONT .Q10H [facility]IL[facility] Rx#:[id number] Oral 2035 / 2035 650 / 650 Output: Urine 1850 / 1850 Other: # Voids 10 Date of Last Bowel Movement 08/15/18 08/15/18 # Bowel Movements 5 Narrative: GENERAL: Thin, cachectic appearing male patient, elderly looking, in no acute distress SKIN: Warm and dry.Superficial skin breakdown noted over bony prominence of right hip and upper coccyx. HEAD: Atraumatic. Normocephalic. EYES: Pupils equal and round. No scleral icterus. No injection or drainage. ENT: No nasal bleeding or discharge. Mucous membranes pink and moist. NECK: Trachea midline. No JVD. CARDIOVASCULAR: Regular rate and rhythm. RESPIRATORY: No accessory muscle use. Clear to auscultation. Breath sounds equal bilaterally. GASTROINTESTINAL: Abdomen flat soft, non-tender, nondistended. Hepatic and splenic margins not palpable. MUSCULOSKELETAL: Extremities without clubbing, cyanosis, or edema. No obvious deformities. NEUROLOGICAL: Awake and alert x3. No obvious cranial nerve deficits. Motor grossly within normal limits. Generalized weakness, moving all 4 extremities normal speech. PSYCHIATRIC: Appropriate mood and affect; insight and judgment normal. Results - Labs CBC & Chem 7: 08/16/18 05:16 08/16/18 05:16 Laboratory Results - last 24 hr 08/15/18 08/15/18 08/15/18 11:51 17:36 18:00 WBC RBC Hgb Hct MCV MCH MCHC RDW Plt Count MPV Prelim Diff (Auto) Neut % (Auto) Lymph % (Auto) [place] % (Auto) Eos % (Auto) Baso % (Auto) Neut # (Auto) Lymph # (Auto) [place] # (Auto) Eos # (Auto) Baso # (Auto) WBC Differential Seg Neuts % (Manual) Band Neuts % (Manual) Lymphocytes % (Manual) Monocytes % (Manual) Eosinophils % (Manual) Abs Neuts (Manual) Differential Comment Platelet Estimate Platelet Morphology Sodium Potassium Chloride Carbon Dioxide Anion Gap BUN Creatinine Estimated GFR POC Glucose 139 H 133 H Random Glucose Calcium Total Bilirubin AST ALT Alkaline Phosphatase Total Protein Albumin Urine Color Yellow Urine Clarity Clear Urine pH 6.0 Ur Specific [place] 1.008 Urine Protein Negative Urine Glucose (UA) Negative Urine Ketones Negative Urine Occult Blood Negative Urine Nitrate Negative Urine Bilirubin Negative Urine Urobilinogen Less than 2 Ur Leukocyte Esterase Negative Urine WBC Less than 1 Ur Squamous Epith Cells <1 Urine Bacteria Few H Urine Mucus Few H Micro UA Comment Culture not ind Ur Microscopic Review Not Reportable Urine Culture Comments Culture not ind 08/15/18 08/16/18 08/16/18 23:58 05:16 05:16 WBC 17.0 H RBC 2.30 L Hgb 8.9 L Hct 26.4 L MCV 114.9 H MCH 38.7 H MCHC 33.7 RDW 15.5 Plt Count 363 MPV 8.7 Prelim Diff (Auto) Slide review pending Neut % (Auto) 77.5 H Lymph % (Auto) 8.6 L [place] % (Auto) 13.0 H Eos % (Auto) 0.1 Baso % (Auto) 0.8 Neut # (Auto) 13.2 H Lymph # (Auto) 1.5 [place] # (Auto) 2.2 H Eos # (Auto) 0.0 Baso # (Auto) 0.1 WBC Differential Manual diff final Seg Neuts % (Manual) 68 Band Neuts % (Manual) 15 H Lymphocytes % (Manual) 4 L Monocytes % (Manual) 12 H Eosinophils % (Manual) 1 Abs Neuts (Manual) 14.1 H Differential Comment . Platelet Estimate Normal Platelet Morphology Normal Sodium 138 Potassium 3.9 Chloride 104 Carbon Dioxide 26.5 Anion Gap 8 BUN 8 Creatinine 0.43 L Estimated GFR Greater than 89 POC Glucose 120 H Random Glucose 97 Calcium 7.7 L Total Bilirubin 0.8 AST 17 ALT 18 Alkaline Phosphatase 154 H Total Protein 5.7 L Albumin 2.2 L Urine Color Urine Clarity Urine pH Ur Specific [place] Urine Protein Urine Glucose (UA) Urine Ketones Urine Occult Blood Urine Nitrate Urine Bilirubin Urine Urobilinogen Ur Leukocyte Esterase Urine WBC Ur Squamous Epith Cells Urine Bacteria Urine Mucus Micro UA Comment Ur Microscopic Review Urine Culture Comments - Imaging Impressions Chest X-Ray 08/16/18 00:00 CONCLUSION: 1. No acute abnormality or significant interval change. - Procedures Date of procedure: 08/04/18 Pre-op diagnosis: GI bleed, melena, anemia, weight loss Procedure: PROCEDURE PERFORMED EGD with biopsy PROCEDURE: The procedure, risks and benefits were discussed with Patient/POA and informed consent was obtained. Anesthesia sedated Patient with Diprivan. Patient was placed in the left lateral decubitus position. EGD: The Pentax videoscope was introduced through the oropharynx and advanced to the second portion of the duodenum under direct visualization. Retroflexion was performed in the stomach. FINDINGS: The esophagus this was unremarkable except for a short segment of Stern's at the distal end measuring less than 1 cm this was biopsied The stomach there was some mild patchy erythema in the antrum but no ulcerations no erosions no blood or bleeding antral biopsies were taken for further evaluation The duodenum this was normal ESTIMATED BLOOD LOSS: None SPECIMENS REMOVED: Esophageal and gastric biopsies COMPLICATIONS: None IMPRESSION: Short segment Stern's esophagus Mild gastritis PLAN: Await biopsies Continue with pantoprazole 40 mg daily EGD in 2 years Advance diet as tolerated Assessment and Plan - Assessment (1) GI bleed Code(s): K92.2 - Gastrointestinal hemorrhage, unspecified Status: Acute (2) Cachectic Code(s): R64 - Cachexia Status: Chronic (3) COPD (chronic obstructive pulmonary disease) Code(s): J44.9 - Chronic obstructive pulmonary disease, unspecified Status: Chronic (4) Weakness Code(s): R53.1 - Weakness Status: Acute (5) Frequent falls Code(s): R29.6 - Repeated falls Status: Acute (6) Unintentional weight loss Code(s): R63.4 - Abnormal weight loss Status: Acute - Plan 57-year-old male with a past medical history of COPD, Stern's esophagus and EtOH abuse. He presents to the ED for an evaluation of weakness -per ED report he was found lying on the side of the road and was picked up by EMS. He was found to have a blood sugar of 50 at that time and endorsed that he had not eaten in a few days; given D50 by EMS. He says he has been so weak he could not walk and had multiple falls. He endorses black stool and occasional emesis with some red blood in it. Febrile illness, Unknown source -WBC elevated at 17 -UA ordered and is negative -Chest x-ray ordered resulted no acute process -Lactic acid elevated at 2.5 -Blood cultures ordered -If continued to have elevated temperature today will consult ID for recommendation -Patient denies any abdominal pain, coughing or congestion, denies any symptoms GI bleed, resolved Likely secondary to esophageal varices, hx of Barretts esophagus -GI consulted, appreciate assistance. -s/p EGD 08/04 showing mild gastritis and short segment of Stern's esophagus. Repeat EGD in 2 yrs. -Protonix drip started by ED, discontinued. Changed to po Protonix 40mg BID. -GI has signed off. -patient is tolerating oral intake, Hgb stable at 11 -No active bleeding Anemia - Likely acute on chronic, multifactorial due to active GIB, ongoing alcohol abuse and suspected liver disease -stool Hemoccult neg -hgb slowly trended down, 10.4 to 8.9, now Hgb much improved to 11. -iron studies: iron 24, TIBC 129, %sat 18.6, ferritin 1750 - suggests anemia of chronic disease -continue to monitor H&H as indicated, stable Hypotension/orthostatic hypotension Blood pressure in the low side ranging from 85/53 - 102/61 -s/p IV fluid half-normal saline times 2 L, restart IV fluid for low blood pressures and dizziness -Encourage increase fluid intake -Likely contributing to dizziness and weakness -Monitor orthostatic hypotension -Not on any blood pressure medication -Add LEOPOLDO hose bilateral -Increase midodrine dose again for persistent low blood pressure and dizziness -monitor BP Severe Hypokalemia, resolved K dropped to 2.7, improved, 4.0 on 08/14/18 -replace as needed -monitor BMP EtOH abuse Transaminitis, Likely due to EtOH, resolved Hypophosphatemia, likely due to EtOH -[facility] protocol -Counseled cessation -Thiamine, folic acid, MVI daily -no signs of withdrawal, monitor for signs of withdrawal -Monitor LFT, phosphorus level Weakness and unintentional weight loss Protein Calorie Malnutrition Hypoalbuminemia -CT abd/pelvis shows chronic pancreatitis with some calcifications in the head and uncinate process, diffuse hepatic fatty infiltration -B12 1258, albumin level 2.3, total protein 5.5 -Hepatitis and HIV panel nonreactive -PT eval/tx - recommends rehab. Patient is self pay. Increased PT to daily . DW Case management. -Consult [employer], appreciate recommendations: Nutrition dense foods low-fat yogurt and milk add Ensure pudding twice daily to add to nutrition -added Ensure to diet order TID, encouraged to drink -Weight on admission 47.21 kg, on 08/10/18: 48.6 kg, weight 08/11/18: 46 kg, today 46 -continue extensive Physical therapy, likely need a walker to go home for increase mobility and safety Thrombocytopenia Likely secondary to liver disease -INR stable, 1.3 -platelets improving, 360 on 08/14/18 -monitor for any bleeding -monitor CBC COPD Not in acute exacerbation, Ongoing tobaccoism -CXR shows chronic COPD changes but no acute process -continue on nicotine patch -Duonebs prn -monitor respiratory status -counseling on smoking cessation -no SOB. no Wheezes DVT prophylaxis: SCDs; Chemical prophylaxis contraindicated due to GI bleed Code Status: full code Discussed Condition With: patient and nurse Discharge Planning: Need extensive physical therapy. Patient is still extremely weak. PT/OT recommending rehab. Patient has no payer source. Discharge planning with long term care social worker, will provide walker upon discharge. Will discharge when cleared with physical therapy Hold discharge due to elevated temperature
--- NOTE | 2018-08-16 13:20 | XR ---
EXAM DATE: 08/16/2018 12:42 PM EST AGE/SEX: 57 years / Male INDICATIONS: Right hip pain post fall. CLINICAL DATA: This is the patient's initial encounter. Patient reports that signs and symptoms have been present for 2 days and indicates a pain score of 10/10. MEDICAL/SURGICAL HISTORY: Pancreatitis. Chronic obstructive pulmonary disease. Rectal prolapse . Fatty liver. Stern's esopahgus. . Hernia repair. COMPARISON: . FINDINGS: Small crescentic calcification seen inferior to the inferior acetabulum/femoral head. Osseous structu res are otherwise intact. Joints are intact without dislocation or significant arthropathy. Osseous density is normal. Soft tissues are unremarkable. No radiopaque foreign bodies seen. CONCLUSION: 1. Small crescentic calcification seen inferior to the inferior acetabulum/femoral head may be vascu lar in etiology although a small avulsion fracture cannot be entirely excluded. Electronically signed by: Minor Bowman MD 08/16/2018 1:19 PM EST
--- NOTE | 2018-08-16 16:50 | MB ---
cc: Emmanuel Holm MD DATE: 08/16/2018 REQUESTING PHYSICIAN: Lillie Westfall REASON: Patient with fever, increased white blood cell count, increased lactic acid. HISTORY OF PRESENT ILLNESS: A 67-year-old white male who was admitted to the hospital on 08/03/2018 when he presented with weakness. Afebrile on admission and his white blood cell count was normal. The patient was admitted and a chest x-ray showed changes of chronic pulmonary disease. The patient was afebrile for most of that admission. He had a temperature of 100 degrees in the accounts specialist hours of 08/15/2018 and the temperature then decreased, but ethan again to 101.7 in the evening. Temperature was again noted to be 101 earlier today. His white blood cell count increased from 10.0 on 08/14/2018 to 17.0 today. The patient is currently sitting on the side of the bed. He denies shortness of breath, cough, sputum production, dysuria, back pain, diarrhea. He notes that he had some chills last night, but none today. Blood cultures have been taken. Urinalysis was unremarkable and a urine culture was not performed. Chest x-ray was performed and showed no acute cardiopulmonary disease. He had a CT scan of the abdomen and pelvis on 08/03/2018, which showed chronic pancreatitis with some calcification in the head and uncinate process, but no acute pancreatitis. The patient has an IV in the right upper extremity, which appears intact. PAST MEDICAL HISTORY: Chronic pancreatitis, COPD, Stern's esophagus, rectal prolapse, history of hernia repair. ALLERGIES: NO KNOWN DRUG ALLERGIES. MEDICATIONS: 1. Ferrous sulfate. 2. Magnesium oxide. 3. Midodrine. 4. Protonix. 5. Pantoprazole. 6. Potassium. SOCIAL HISTORY: Positive tobacco, positive alcohol. No illicit drugs. FAMILY HISTORY: Noncontributory. REVIEW OF SYSTEMS: All systems have been reviewed. Pertinent positives I mentioned in the history of present illness. PHYSICAL EXAMINATION: GENERAL: This is a frail, cachectic-appearing male who is in no acute distress. He is awake and alert and oriented. VITAL SIGNS: Temperature 98.9, BP ____, respirations 16, heart rate 86. HEENT: Head atraumatic. Extraocular movements are grossly intact. Pupils reactive to light. No icterus. Oropharynx: Moist mucosa. No thrush. No lesions. NECK: Supple. No adenopathy. LUNGS: Diminished breath sounds throughout. HEART: Regular, S1, S2. No murmurs. No rubs. No gallops. ABDOMEN: Bowel sounds present. Soft, flat, nontender. RECTAL: Not performed. EXTREMITIES: No clubbing, cyanosis or edema. Muscle wasting is apparent at the extremities. SKIN: No diffuse rash. NEUROLOGIC: No gross focal finding. PSYCHIATRIC: The patient is calm and cooperative. LABORATORY DATA: WBC 17.0, platelet count 363 with 68% neutrophils, 15% bands, hemoglobin 8.9. Creatinine 0.43. Estimated GFR greater than 89. Alkaline phosphatase 154, AST 17, ALT 18. IMPRESSION: Fever and leukocytosis. Elevated lactic acid. Patient without clear foci of sepsis to indicate a source of infection, but he may have early signs of sepsis. His clinical exam is not revealing a potential source. The patient clinically feels better. RECOMMENDATIONS: 1. Monitor the temperature overnight. 2. Follow white blood cell count. 3. Monitor the blood cultures. 4. Monitor for signs indicating a source of fever. If his temperature continues to rise, consideration will be given to starting empiric antibiotics. Thank you for this consultation. I will follow the patient's progress with you. MD HAIM Lopez/prem/ll , 03:00 PM , 03:12 PM
[2018-08-17] MEDS: Sodium Chloride 0.45 % Inj 1,000 ML IV.CONT SCH ×3 (04:01→21:08)
[2018-08-17 06:41] LABS: Baso # (Auto) 0.1 th/mm3 (0.0-0.2); Baso % (Auto) 0.9 % (0.0-2.0); Eos % (Auto) 0.2 % (0.0-4.0); Hematocrit 25.8 % (39.0-51.0); Lymph # (Auto) 1.2 th/mm3 (1.0-4.8); Lymph % (Auto) 8.9 % (9.0-44.0); Mean Corpuscular HGB Conc 34.8 % (32.0-36.0); Mean Corpuscular Hemoglobin 39.6 pg (27.0-34.0); Mean Corpuscular Volume 113.8 fL (80.0-100.0); Mono # (Auto) 1.8 th/mm3 (0.0-0.9); Mono % (Auto) 13.2 % (0.0-8.0); Neut # (Auto) 10.7 th/mm3 (1.8-7.7); Neut % (Auto) 76.8 % (16.0-70.0); Platelet Count 335 th/mm3 (150-450); Red Blood Count 2.27 mil/mm3 (4.50-5.90)
[2018-08-17 07:02] LABS: Anion Gap 8 meq/L (5-15); Blood Urea Nitrogen 8 mg/dL (7-18); Calcium 7.7 mg/dL (8.5-10.1); Carbon Dioxide 26.3 meq/L (21.0-32.0); Chloride 106 meq/L (98-107); Glomerular Filtration Rate Greater Than 89 mL/min (>89); Glucose,Random 99 mg/dL (74-106); Potassium 3.8 meq/L (3.5-5.1); Sodium 140 meq/L (136-145)
[2018-08-17] MEDS: Multivit/Folic Acid/Minerals Chewable Tablets CHEW SCH (09:06)
[2018-08-17] MEDS: Acetaminophen 325 MG Tablet PO PRN ×3 (09:15→21:13)
[2018-08-17] MEDS: Sodium Chloride 0.9% 2 ML Flush BID IV.FLUSH SCH ×2 (09:15→21:08)
[2018-08-17] MEDS ORDERED: Vancomycin Inj 1,000 MG in Sodium Chlor 0.9% Inj 250 ML IV.SIG ONE (10:53)
[2018-08-17] MEDS ORDERED: Vancomycin Consult Pharmacy 1 EACH OTHER SCH (11:00)
--- NOTE | 2018-08-17 11:48 | P.PNIM ---
Subjective Interval history: 08-16 Follow-up on patient with GI bleed, generalized weakness, anemia, EtOH. Nurse reported patient having fever started yesterday with a with a temperature of 101.7, last night 100.7 and this morning 101. Patient sitting on the side of the bed, eating breakfast, denies any fever or chills, denies any congestion or shortness of breath. Patient stated he have some coughing that but no phlegm coming out. Patient states that history of smoking. Patient denies any abdominal pain, nausea, vomiting, diarrhea or constipation. Patient denies any pain in urination. SEPSIS ID CONSULTED 08-17 POSITIVE BLOOD CULTURES START VANCO AND ZOSYN AM LABS DW RN AND PT AND CM AWAIT SENSITIVITIES Physical Exam Vital signs: Vital Signs 08/16/18 16:00 08/16/18 17:59 08/16/18 20:00 Temperature 100.1 F H 102.5 F H 99.9 F H Pulse Rate 84 82 Respiratory Rate 16 20 Blood Pressure 99/54 L 111/58 L Pulse Oximetry 94 L 93 L 08/17/18 00:00 08/17/18 03:56 08/17/18 08:00 Temperature 99.7 F H 98.9 F 99.5 F Pulse Rate 81 84 82 Respiratory Rate 20 18 20 Blood Pressure 96/56 L 96/54 L 87/50 L Pulse Oximetry 93 L 96 91 L Intake & Output 08/16/18 08/17/18 08/17/18 18:59 06:59 18:59 Intake Total 1000 / 1000 120 / 120 Output Total 350 / 350 Balance 1000 / 1000 -230 / -230 Weight 51.9 kg Intake: Oral 1000 / 1000 120 / 120 Output: Urine 350 / 350 Other: # Voids 3 # Bowel Movements 1 Narrative: GENERAL: Thin, cachectic appearing male patient, elderly looking, in no acute distress SKIN: Warm and dry.Superficial skin breakdown noted over bony prominence of right hip and upper coccyx. HEAD: Atraumatic. Normocephalic. EYES: Pupils equal and round. No scleral icterus. No injection or drainage. ENT: No nasal bleeding or discharge. Mucous membranes pink and moist. NECK: Trachea midline. No JVD. CARDIOVASCULAR: Regular rate and rhythm. RESPIRATORY: No accessory muscle use. Clear to auscultation. Breath sounds equal bilaterally. GASTROINTESTINAL: Abdomen flat soft, non-tender, nondistended. Hepatic and splenic margins not palpable. MUSCULOSKELETAL: Extremities without clubbing, cyanosis, or edema. No obvious deformities. NEUROLOGICAL: Awake and alert x3. No obvious cranial nerve deficits. Motor grossly within normal limits. Generalized weakness, moving all 4 extremities normal speech. PSYCHIATRIC: Appropriate mood and affect; insight and judgment normal. Results - Labs CBC & Chem 7: 08/17/18 04:55 08/17/18 04:55 Laboratory Results - last 24 hr 08/16/18 08/16/18 08/16/18 05:16 19:25 19:25 WBC RBC Hgb Hct MCV MCH MCHC RDW Plt Count MPV Neut % (Auto) Lymph % (Auto) [place] % (Auto) Eos % (Auto) Baso % (Auto) Neut # (Auto) Lymph # (Auto) [place] # (Auto) Eos # (Auto) Baso # (Auto) WBC Differential Differential Comment ESR 100 H Sodium Potassium Chloride Carbon Dioxide Anion Gap BUN Creatinine Estimated GFR Random Glucose Lactic Acid 2.2 H Calcium C-Reactive Protein 2.50 H 08/17/18 08/17/18 04:55 04:55 WBC 14.0 H RBC 2.27 L Hgb 9.0 L Hct 25.8 L MCV 113.8 H MCH 39.6 H MCHC 34.8 RDW 16.0 Plt Count 335 MPV 9.0 Neut % (Auto) 76.8 H Lymph % (Auto) 8.9 L [place] % (Auto) 13.2 H Eos % (Auto) 0.2 Baso % (Auto) 0.9 Neut # (Auto) 10.7 H Lymph # (Auto) 1.2 [place] # (Auto) 1.8 H Eos # (Auto) 0.0 Baso # (Auto) 0.1 WBC Differential . Differential Comment Auto diff final ESR Sodium 140 Potassium 3.8 Chloride 106 Carbon Dioxide 26.3 Anion Gap 8 BUN 8 Creatinine 0.44 L Estimated GFR Greater than 89 Random Glucose 99 Lactic Acid Calcium 7.7 L C-Reactive Protein Microbiology 08/16/18 08:31 Blood - Peripheral Aerobic Blood Culture - Preliminary No growth in 1 day 08/16/18 08:31 Blood - Peripheral Anaerobic Blood Culture - Preliminary gram positive cocci 08/16/18 08:25 Blood - Peripheral Aerobic Blood Culture - Preliminary gram positive cocci 08/16/18 08:25 Blood - Peripheral Anaerobic Blood Culture - Preliminary gram positive cocci - Imaging Impressions Hip X-Ray 08/16/18 00:00 CONCLUSION: 1. Small crescentic calcification seen inferior to the inferior acetabulum/ femoral head may be vascular in etiology although a small avulsion fracture cannot be entirely excluded. - Procedures Date of procedure: 08/04/18 Pre-op diagnosis: GI bleed, melena, anemia, weight loss Procedure: PROCEDURE PERFORMED EGD with biopsy PROCEDURE: The procedure, risks and benefits were discussed with Patient/POA and informed consent was obtained. Anesthesia sedated Patient with Diprivan. Patient was placed in the left lateral decubitus position. EGD: The Pentax videoscope was introduced through the oropharynx and advanced to the second portion of the duodenum under direct visualization. Retroflexion was performed in the stomach. FINDINGS: The esophagus this was unremarkable except for a short segment of Stern's at the distal end measuring less than 1 cm this was biopsied The stomach there was some mild patchy erythema in the antrum but no ulcerations no erosions no blood or bleeding antral biopsies were taken for further evaluation The duodenum this was normal ESTIMATED BLOOD LOSS: None SPECIMENS REMOVED: Esophageal and gastric biopsies COMPLICATIONS: None IMPRESSION: Short segment Stern's esophagus Mild gastritis PLAN: Await biopsies Continue with pantoprazole 40 mg daily EGD in 2 years Advance diet as tolerated Assessment and Plan - Assessment (1) GI bleed Code(s): K92.2 - Gastrointestinal hemorrhage, unspecified Status: Acute (2) Cachectic Code(s): R64 - Cachexia Status: Chronic (3) COPD (chronic obstructive pulmonary disease) Code(s): J44.9 - Chronic obstructive pulmonary disease, unspecified Status: Chronic (4) Weakness Code(s): R53.1 - Weakness Status: Acute (5) Frequent falls Code(s): R29.6 - Repeated falls Status: Acute (6) Unintentional weight loss Code(s): R63.4 - Abnormal weight loss Status: Acute - Plan 57-year-old male with a past medical history of COPD, Stern's esophagus and EtOH abuse. He presents to the ED for an evaluation of weakness -per ED report he was found lying on the side of the road and was picked up by EMS. He was found to have a blood sugar of 50 at that time and endorsed that he had not eaten in a few days; given D50 by EMS. He says he has been so weak he could not walk and had multiple falls. He endorses black stool and occasional emesis with some red blood in it. Febrile illness, Unknown source -WBC elevated at 17 -UA ordered and is negative -Chest x-ray ordered resulted no acute process -Lactic acid elevated at 2.5 -Blood cultures ordered -If continued to have elevated temperature today will consult ID for recommendation -Patient denies any abdominal pain, coughing or congestion, denies any symptoms BLOOD CULTURES ARE GROWING START ON VANCO AND ZOSYN GI bleed, resolved Likely secondary to esophageal varices, hx of Barretts esophagus -GI consulted, appreciate assistance. -s/p EGD 08/04 showing mild gastritis and short segment of Stern's esophagus. Repeat EGD in 2 yrs. -Protonix drip started by ED, discontinued. Changed to po Protonix 40mg BID. -GI has signed off. -patient is tolerating oral intake, Hgb stable at 11 -No active bleeding Anemia - Likely acute on chronic, multifactorial due to active GIB, ongoing alcohol abuse and suspected liver disease -stool Hemoccult neg -hgb slowly trended down, 10.4 to 8.9, now Hgb much improved to 11. -iron studies: iron 24, TIBC 129, %sat 18.6, ferritin 1750 - suggests anemia of chronic disease -continue to monitor H&H as indicated, stable Hypotension/orthostatic hypotension Blood pressure in the low side ranging from 85/53 - 102/61 -s/p IV fluid half-normal saline times 2 L, restart IV fluid for low blood pressures and dizziness -Encourage increase fluid intake -Likely contributing to dizziness and weakness -Monitor orthostatic hypotension -Not on any blood pressure medication -Add LEOPOLDO hose bilateral -Increase midodrine dose again for persistent low blood pressure and dizziness -monitor BP Severe Hypokalemia, resolved K dropped to 2.7, improved, 4.0 on 08/14/18 -replace as needed -monitor BMP EtOH abuse Transaminitis, Likely due to EtOH, resolved Hypophosphatemia, likely due to EtOH -[facility] protocol -Counseled cessation -Thiamine, folic acid, MVI daily -no signs of withdrawal, monitor for signs of withdrawal -Monitor LFT, phosphorus level Weakness and unintentional weight loss Protein Calorie Malnutrition Hypoalbuminemia -CT abd/pelvis shows chronic pancreatitis with some calcifications in the head and uncinate process, diffuse hepatic fatty infiltration -B12 1258, albumin level 2.3, total protein 5.5 -Hepatitis and HIV panel nonreactive -PT eval/tx - recommends rehab. Patient is self pay. Increased PT to daily . DW Case management. -Consult kettle skimmer, appreciate recommendations: Nutrition dense foods low-fat yogurt and milk add Ensure pudding twice daily to add to nutrition -added Ensure to diet order TID, encouraged to drink -Weight on admission 47.21 kg, on 08/10/18: 48.6 kg, weight 08/11/18: 46 kg, today 46 -continue extensive Physical therapy, likely need a walker to go home for increase mobility and safety Thrombocytopenia Likely secondary to liver disease -INR stable, 1.3 -platelets improving, 360 on 08/14/18 -monitor for any bleeding -monitor CBC COPD Not in acute exacerbation, Ongoing tobaccoism -CXR shows chronic COPD changes but no acute process -continue on nicotine patch -Duonebs prn -monitor respiratory status -counseling on smoking cessation -no SOB. no Wheezes DVT prophylaxis: SCDs; Chemical prophylaxis contraindicated due to GI bleed Code Status: FULL CODE Discussed Condition With: RN AND PT AND CM Discharge Planning: PENDING ID CLEARANCE
[2018-08-17] MEDS: Piperacil/Tazo 4.5 GM Premix 4.5 GM/100 ML BAG IV.SIG SCH ×2 (12:39→21:08)
[2018-08-17] MEDS: Vancomycin Inj 1,000 MG in Sodium Chlor 0.9% Inj 250 ML IV.SIG SCH (13:21)
--- NOTE | 2018-08-17 16:51 | P.DIET ---
Nutritional Evaluation Type of nutrition evaluation: follow-up Nutrition consult regarding: Diet Evaluation Nutrition screening: Poor PO Intake, [facility] [place] Screening comments: 08/04/18 [facility] [place] Poor PO Intake Subjective Subjective Comments: Pt says "everything is wonderful" when asked about his meals. Ensure Pudding and containers of yogurt stacked-up on bedside table. Pt says he plans to eat the yogurt and Ensure Pudding. Pt cautioned on eating yogurt greater than two hours after he has received it; yogurt discarded during this visit. Pt has one visible tooth in his mouth. Objective - Diagnosis GI bleed, hyperbilirubinemia - Objective % IBW: 63 (IBW = 208lb) Body Weight Used for Calculations: Actual (58.967kg) Energy Needs - Lower Range (kCal/kg): 40 Energy Needs - Upper Range (kCal/kg): 45 Lower Limit kCal/kg (kCals): 2,359 Upper Limit kCal/kg (kCals): 2,654 Lower Limit Protein Factor (Grams per Kg): 1.3 Upper Limit Protein Factor (Grams per Kg): 1.8 Lower Protein Needs (Protein): 77 Upper Protein Needs (Protein): 106 Dietitian Reviewed in Medical Record: Current diet, Curent medications, Intake & Output, Labs, Medical history Diet Order: Cardiac Soft Oral Diet Intake Amount: Good 75-90% Speech Therapy Recommendations: No Objective Comments: PMH: Stern's esophagus, chronic pancreatitis, COPD, fatty liver, alcohol abuse , rectal prolapse Meds: Haldol, lorazepam, MVI w/ folic acid and vit C, vit B1 Labs include: A1C 4.4 LBM 08/15 Feeding - Current PO Supplement Current Supplement: Ensure Original Current Frequency of Supplement: Three times a day Current kCals Provided by Supplement: 250 Current Protein Provided by Supplement: 9 Supplement Comments: Ensure Pudding BID(= 170 kcal and 4g protein) Assessment Assessment: Pt continues at nutritional risk r/t reported poor po intake and very low BMI 13.6. Pt is tolerating po diet w/Adequate po intake 75% and greater for meals here. Ensure TID per MD. Change Ensure to Ensure Enlive TID(= 350 kcal and 20g protein per serving). Continue Ensure Pudding bid for additional nutrition. Pt ordering nutrient-dense foods like yogurt and milk- Cautioned pt to consume these within a 2-hour window vs saving them. Labs reviewed. Wt changes noted. Dietitian following. Recommendations: 1. Ensure TID per MD 2. Change Ensure to Ensure Enlive TID 3. Continue Ensure Pudding bid for additional nutrition 4. Pt ordering nutrient-dense foods like yogurt and milk- Cautioned pt to consume these within a 2-hour window vs saving them 5. Dietitian following Dietitian to Monitor: Lab values, Supplement acceptance, Intake & Output, Weight change, PO Intake, Medical course
--- NOTE | 2018-08-17 16:54 | P.PNID ---
Subjective Remarks: Patient complains of pain in the back. Having fever. Low grade. WBC remain elevated. Denies SOB. Denies dysuria. A 67-year-old white male who was admitted to the hospital on 08/03/2018 when he presented with weakness. Afebrile on admission and his white blood cell count was normal. The patient was admitted and a chest x-ray showed changes of chronic pulmonary disease. The patient was afebrile for most of that admission. He had a temperature of 100 degrees in the certified cytotechnologist hours of 08/15/2018 and the temperature then decreased, but ethan again to 101.7 in the evening. Temperature was again noted to be 101 earlier today. His white blood cell count increased from 10.0 on 08/14/2018 to 17.0. He had a CT scan of the abdomen and pelvis on 08/03/2018, which showed chronic pancreatitis with some calcification in the head and uncinate process, but no acute pancreatitis. Past Medical History: PAST MEDICAL HISTORY: Chronic pancreatitis, COPD, Stern's esophagus, rectal prolapse, history of hernia repair. Allergies/Adverse Reactions: Allergies No Known Allergies Allergy (Verified 08/03/18 13:56) Objective Vital Signs 08/16/18 17:59 08/16/18 20:00 08/17/18 00:00 Temperature 102.5 F H 99.9 F H 99.7 F H Pulse Rate 82 81 Respiratory Rate 20 20 Blood Pressure 111/58 L 96/56 L Pulse Oximetry 93 L 93 L 08/17/18 03:56 08/17/18 08:00 08/17/18 12:00 Temperature 98.9 F 99.5 F 100 F H Pulse Rate 84 82 78 Respiratory Rate 18 20 20 Blood Pressure 96/54 L 87/50 L 82/51 L Pulse Oximetry 96 91 L 96 Intake & Output 08/16/18 08/17/18 08/17/18 18:59 06:59 18:59 Intake Total 1000 / 1000 120 / 120 350 / 350 Output Total 350 / 350 Balance 1000 / 1000 -230 / -230 350 / 350 Weight 51.9 kg Intake: IV 350 / 350 Zosyn 4.5 GM Premix 4.5 gm In 100 / 100 100 ml @ 200 mls/hr IV.SIG Q8H [facility] Rx#:[id number] Vancomycin Inj 1,000 MG In NS 250 / 250 Inj 250 ML @ 250 mls/hr IV.SIG Q12H [facility] Rx#:[id number] Oral 1000 / 1000 120 / 120 Output: Urine 350 / 350 Other: # Voids 3 # Bowel Movements 1 08/16/18 08:25 Blood - Peripheral Aerobic Blood Culture - Preliminary S. aureus MRSA 08/16/18 08:25 Blood - Peripheral Anaerobic Blood Culture - Preliminary gram positive cocci 08/16/18 18:33 Clean Catch Urine Urine Culture - Preliminary gram negative rods 08/16/18 08:31 Blood - Peripheral Aerobic Blood Culture - Preliminary No growth in 1 day 08/16/18 08:31 Blood - Peripheral Anaerobic Blood Culture - Preliminary gram positive cocci Lab - Hematology Results 08/16/18 08/16/18 08/17/18 05:16 19:25 04:55 WBC 17.0 H 14.0 H RBC 2.30 L 2.27 L Hgb 8.9 L 9.0 L Hct 26.4 L 25.8 L MCV 114.9 H 113.8 H MCH 38.7 H 39.6 H MCHC 33.7 34.8 RDW 15.5 16.0 Plt Count 363 335 MPV 8.7 9.0 Prelim Diff (Auto) Slide review pending Neut % (Auto) 77.5 H 76.8 H Lymph % (Auto) 8.6 L 8.9 L [place] % (Auto) 13.0 H 13.2 H Eos % (Auto) 0.1 0.2 Baso % (Auto) 0.8 0.9 Neut # (Auto) 13.2 H 10.7 H Lymph # (Auto) 1.5 1.2 [place] # (Auto) 2.2 H 1.8 H Eos # (Auto) 0.0 0.0 Baso # (Auto) 0.1 0.1 WBC Differential Manual diff final . Seg Neuts % (Manual) 68 Band Neuts % (Manual) 15 H Lymphocytes % (Manual) 4 L Monocytes % (Manual) 12 H Eosinophils % (Manual) 1 Abs Neuts (Manual) 14.1 H Differential Comment . Auto diff final Platelet Estimate Normal Platelet Morphology Normal ESR 100 H Lab - Chemistry Results 08/15/18 08/15/18 08/16/18 17:36 23:58 05:16 Sodium 138 Potassium 3.9 Chloride 104 Carbon Dioxide 26.5 Anion Gap 8 BUN 8 Creatinine 0.43 L Estimated GFR Greater than 89 POC Glucose 133 H 120 H Random Glucose 97 Lactic Acid Calcium 7.7 L Total Bilirubin 0.8 AST 17 ALT 18 Alkaline Phosphatase 154 H C-Reactive Protein Total Protein 5.7 L Albumin 2.2 L 08/16/18 08/16/18 08/16/18 05:16 10:23 19:25 Sodium Potassium Chloride Carbon Dioxide Anion Gap BUN Creatinine Estimated GFR POC Glucose Random Glucose Lactic Acid 2.5 H 2.2 H Calcium Total Bilirubin AST ALT Alkaline Phosphatase C-Reactive Protein 2.50 H Total Protein Albumin 08/17/18 04:55 Sodium 140 Potassium 3.8 Chloride 106 Carbon Dioxide 26.3 Anion Gap 8 BUN 8 Creatinine 0.44 L Estimated GFR Greater than 89 POC Glucose Random Glucose 99 Lactic Acid Calcium 7.7 L Total Bilirubin AST ALT Alkaline Phosphatase C-Reactive Protein Total Protein Albumin Imaging: ITS Impressions Head CT 08/03/18 14:01 CONCLUSION: 1. Chronic sinusitis with regional bony thickening in the superior aspect of the left maxillary antra. 2. Mild, symmetric cortical atrophy. 3. Nothing acute. . Abdomen/Pelvis CT 08/03/18 15:28 CONCLUSION: 1. Chronic pancreatitis with some calcifications in the head and uncinate process. No acute pancreatitis. 2. Diffuse hepatic fatty infiltration. 3. Bibasilar emphysematous changes with no acute infiltrate. Chest X-Ray 08/16/18 00:00 CONCLUSION: 1. No acute abnormality or significant interval change. Hip X-Ray 08/16/18 00:00 CONCLUSION: 1. Small crescentic calcification seen inferior to the inferior acetabulum/ femoral head may be vascular in etiology although a small avulsion fracture cannot be entirely excluded. Physical Exam: PHYSICAL EXAMINATION: GENERAL: cachectic-appearing male who is in no acute distress. He is awake and alert and oriented. HEENT: Head atraumatic. Extraocular movements are grossly intact. Pupils reactive to light. No icterus. Oropharynx: Moist mucosa. No thrush. No lesions. NECK: Supple. No adenopathy. LUNGS: Diminished breath sounds. HEART: Regular, S1, S2. No murmurs. No rubs. No gallops. ABDOMEN: Bowel sounds present. Soft, flat, nontender. Back: tenderness across the lower back. EXTREMITIES: No clubbing, cyanosis or edema. Muscle wasting is apparent at the extremities. SKIN: No diffuse rash. NEUROLOGIC: No gross focal finding. PSYCHIATRIC: Calm and cooperative. Assessment and Plan - Plan IMPRESSION: Bacteremia/Sepsis. Fever and leukocytosis. Elevated lactic acid. Patient without clear foci of sepsis to indicate a source of infection. UTI - gram negative. Back Pain. RECOMMENDATIONS: 1. Continue patient on vancomycin. 2. Continue piperacillin/tazobactam. 3. Monitor identity of the urine gram-negative. 4. Repeat the blood cultures. 5. Obtain 2D echocardiogram. 6. Obtain MRI of the lumbar's spine to evaluate for discitis.
[2018-08-17] MEDS ORDERED: Gadobutrol PF 7.5 MMOL/7.5 ML Vial (for RAD) IV.SIG ONE (20:47)
--- NOTE | 2018-08-17 21:24 | MR ---
EXAM DATE: 08/17/2018 9:02 PM EST AGE/SEX: 57 years / Male INDICATIONS: Osteomyelitis. Low back pain. CLINICAL DATA: This is the patient's initial encounter. Patient reports that signs and symptoms have been present for 1 day and indicates a pain score of 4/10. MEDICAL/SURGICAL HISTORY: Chronic obstructive pulmonary disease. Fatty liver. . Hernia repair. COMPARISON: No prior exams available for comparison. TECHNIQUE: Multiplanar, multisequence MRI examination of the lumbar spine was performed without and with 5 ml Gadavist (gadobutrol) contrast as a single exam dose. FINDINGS: The lumbar vertebral bodies are normal in height and marrow intensity. No abnormal enhancement is not ed within the lumbar spine to suggest osteomyelitis of the vertebral bodies. There is loss of disc si gnal at L2-3, L3-4 and L4-5 consistent with degenerative disc disease at these levels. There is also mild disc space narrowing at L4-5. Perineural root sleeve cysts are noted bilaterally at L5 and S1. T iny perineural root sleeve cysts are also noted bilaterally at L2, L3 and L4. T12-L1: The thecal sac has a normal diameter. No evidence of disc bulge or protrusion. The neural foramina are patent bilaterally. L1-L2: The thecal sac has a normal diameter. No evidence of disc bulge or protrusion. The neural foramina are patent bilaterally. L2-L3: Minimal diffuse disc osteophyte complex is noted. Mild facet joint hypertrophy is noted. No spinal stenosis or neuroforaminal narrowing is noted. No focal disc herniation is noted. Tiny bilater al perineural root sleeve cysts are noted. L3-L4: Minimal diffuse disc osteophyte complex is noted. Mild facet joint hypertrophy is noted. No spinal stenosis or neuroforaminal narrowing is noted. No focal disc herniation is noted. Tiny bilater al perineural root sleeve cysts are noted. L4-L5: Minimal circumferential spinal stenosis and bilateral foraminal narrowing are noted secondar y to diffuse disc osteophyte complex, facet joint hypertrophy and ligamentous laxity. Moderate-sized bilateral perineural root sleeve cysts are noted. L5-S1: No spinal stenosis or neural foraminal narrowing is noted. Facet joint hypertrophy is noted bilaterally. Bilateral perineural root sleeve cysts are noted with the right being larger than the le ft. CONCLUSION: 1. No evidence of vertebral body osteomyelitis. 2. Minimal circumferential spinal stenosis and bilateral foraminal narrowing at L4-5. 3. Multilevel bilateral perineural root sleeve cysts noted with the largest noted within the lower l umbar spine and upper sacrum. 4. Degenerative disc disease from L2 through L5. Electronically signed by: Robert Burrell MD 08/17/2018 9:23 PM EST
[2018-08-18] MEDS: Vancomycin Inj 1,000 MG in Sodium Chlor 0.9% Inj 250 ML IV.SIG SCH ×2 (01:27→13:00)
[2018-08-18] MEDS: Piperacil/Tazo 4.5 GM Premix 4.5 GM/100 ML BAG IV.SIG SCH ×2 (03:36→12:14)
[2018-08-18] MEDS: Sodium Chloride 0.45 % Inj 1,000 ML IV.CONT SCH ×2 (03:36→12:15)
[2018-08-18 07:37] LABS: Baso # (Auto) 0.2 th/mm3 (0.0-0.2); Baso % (Auto) 1.5 % (0.0-2.0); Eos # (Auto) 0.1 th/mm3 (0.0-0.4); Eos % (Auto) 1.2 % (0.0-4.0); Hematocrit 24.1 % (39.0-51.0); Hemoglobin 8.3 gm/dL (13.0-17.0); Lymph # (Auto) 0.9 th/mm3 (1.0-4.8); Lymph % (Auto) 8.5 % (9.0-44.0); Mean Corpuscular HGB Conc 34.3 % (32.0-36.0); Mean Corpuscular Hemoglobin 38.5 pg (27.0-34.0); Mean Corpuscular Volume 112.1 fL (80.0-100.0); Mean Platelet Volume 8.8 fL (7.0-11.0); Mono # (Auto) 1.7 th/mm3 (0.0-0.9); Mono % (Auto) 15.4 % (0.0-8.0); Neut # (Auto) 8.1 th/mm3 (1.8-7.7); Neut % (Auto) 73.4 % (16.0-70.0); Platelet Count 364 th/mm3 (150-450); Red Blood Count 2.15 mil/mm3 (4.50-5.90); Red Cell Distribution Width 16.9 % (11.6-17.2)
[2018-08-18 08:14] LABS: Albumin 1.9 g/dL (3.4-5.0); Anion Gap 8 meq/L (5-15); Aspartate Aminotransferase 13 U/L (15-37); Blood Urea Nitrogen 8 mg/dL (7-18); Calcium 7.6 mg/dL (8.5-10.1); Carbon Dioxide 26.5 meq/L (21.0-32.0); Chloride 107 meq/L (98-107); Glomerular Filtration Rate Greater Than 89 mL/min (>89); Glucose,Random 80 mg/dL (74-106); Magnesium 1.8 mg/dL (1.5-2.5); Potassium 3.9 meq/L (3.5-5.1); Sodium 141 meq/L (136-145)
[2018-08-18 08:25] LABS: Alanine Aminotransferase 14 U/L (12-78); Alkaline Phosphatase 113 U/L (45-117); Phosphorus 3.3 mg/dL (2.5-4.9); Total Protein 5.5 g/dL (6.4-8.2)
[2018-08-18] MEDS: Multivit/Folic Acid/Minerals Chewable Tablets CHEW SCH (08:48)
[2018-08-18] MEDS: Sodium Chloride 0.9% 2 ML Flush BID IV.FLUSH SCH (08:49)
[2018-08-18] MEDS: Acetaminophen 325 MG Tablet PO PRN (08:55)
--- NOTE | 2018-08-18 10:59 | P.PNIM ---
Subjective Interval history: 08-16 Follow-up on patient with GI bleed, generalized weakness, anemia, EtOH. Nurse reported patient having fever started yesterday with a with a temperature of 101.7, last night 100.7 and this morning 101. Patient sitting on the side of the bed, eating breakfast, denies any fever or chills, denies any congestion or shortness of breath. Patient stated he have some coughing that but no phlegm coming out. Patient states that history of smoking. Patient denies any abdominal pain, nausea, vomiting, diarrhea or constipation. Patient denies any pain in urination. SEPSIS ID CONSULTED 08-17 POSITIVE BLOOD CULTURES START VANCO AND ZOSYN AM LABS GUY RN AND PT AND CM AWAIT SENSITIVITIES 08-18 HAD ECHO TODAY REMAINS ON VANCO AND ZOSYN AM LABS DW RN AND PT AND CM Physical Exam Vital signs: Vital Signs 08/17/18 12:00 08/17/18 16:00 08/17/18 20:00 Temperature 100 F H 97.7 F 99.8 F H Pulse Rate 78 70 91 H Respiratory Rate 20 20 18 Blood Pressure 82/51 L 98/54 L 97/54 L Pulse Oximetry 96 98 94 L 08/18/18 00:00 08/18/18 08:00 Temperature 98.3 F 100.5 F H Pulse Rate 88 73 Respiratory Rate 18 18 Blood Pressure 98/53 L 84/51 L Pulse Oximetry 92 L 96 Intake & Output 08/17/18 08/18/18 08/18/18 18:59 06:59 18:59 Intake Total 350 / 350 1450 / 1450 Output Total 500 / 500 Balance 350 / 350 950 / 950 Weight 53.6 kg Intake: IV 350 / 350 1450 / 1450 1/2 Normal Saline Inj 1,000 ML 1000 / 1000 @ 125 mls/hr IV.CONT .Q8H [facility] Rx#:[id number] Zosyn 4.5 GM Premix 4.5 gm In 100 / 100 200 / 200 100 ml @ 200 mls/hr IV.SIG Q8H [facility] Rx#:[id number] Vancomycin Inj 1,000 MG In NS 250 / 250 250 / 250 Inj 250 ML @ 250 mls/hr IV.SIG Q12H [facility] Rx#:[id number] Output: Urine 500 / 500 Other: # Voids 9 # Bowel Movements 3 2 Narrative: GENERAL: Thin, cachectic appearing male patient, elderly looking, in no acute distress SKIN: Warm and dry.Superficial skin breakdown noted over bony prominence of right hip and upper coccyx. HEAD: Atraumatic. Normocephalic. EYES: Pupils equal and round. No scleral icterus. No injection or drainage. ENT: No nasal bleeding or discharge. Mucous membranes pink and moist. NECK: Trachea midline. No JVD. CARDIOVASCULAR: Regular rate and rhythm. RESPIRATORY: No accessory muscle use. Clear to auscultation. Breath sounds equal bilaterally. GASTROINTESTINAL: Abdomen flat soft, non-tender, nondistended. Hepatic and splenic margins not palpable. MUSCULOSKELETAL: Extremities without clubbing, cyanosis, or edema. No obvious deformities. NEUROLOGICAL: Awake and alert x3. No obvious cranial nerve deficits. Motor grossly within normal limits. Generalized weakness, moving all 4 extremities normal speech. PSYCHIATRIC: Appropriate mood and affect; insight and judgment normal. Results - Labs CBC & Chem 7: 08/18/18 06:08 08/18/18 06:08 Laboratory Results - last 24 hr 08/18/18 08/18/18 06:08 06:08 WBC 11.0 RBC 2.15 L Hgb 8.3 L Hct 24.1 L MCV 112.1 H MCH 38.5 H MCHC 34.3 RDW 16.9 Plt Count 364 MPV 8.8 Neut % (Auto) 73.4 H Lymph % (Auto) 8.5 L [place] % (Auto) 15.4 H Eos % (Auto) 1.2 Baso % (Auto) 1.5 Neut # (Auto) 8.1 H Lymph # (Auto) 0.9 L [place] # (Auto) 1.7 H Eos # (Auto) 0.1 Baso # (Auto) 0.2 WBC Differential . Differential Comment Auto diff final Sodium 141 Potassium 3.9 Chloride 107 Carbon Dioxide 26.5 Anion Gap 8 BUN 8 Creatinine 0.49 L Estimated GFR Greater than 89 Random Glucose 80 Calcium 7.6 L Phosphorus 3.3 Magnesium 1.8 Total Bilirubin 0.6 AST 13 L ALT 14 Alkaline Phosphatase 113 Total Protein 5.5 L Albumin 1.9 L TSH 2.270 Free T4 0.90 Microbiology 08/16/18 18:33 Clean Catch Urine Urine Culture - Final Citrobacter koseri 08/16/18 08:31 Blood - Peripheral Aerobic Blood Culture - Preliminary gram positive cocci 08/16/18 08:31 Blood - Peripheral Anaerobic Blood Culture - Preliminary gram positive cocci 08/16/18 08:25 Blood - Peripheral Aerobic Blood Culture - Preliminary S. aureus MRSA 08/16/18 08:25 Blood - Peripheral Anaerobic Blood Culture - Preliminary gram positive cocci - Imaging Impressions Lumbar Spine MRI 08/17/18 00:00 CONCLUSION: 1. No evidence of vertebral body osteomyelitis. 2. Minimal circumferential spinal stenosis and bilateral foraminal narrowing at L4-5. 3. Multilevel bilateral perineural root sleeve cysts noted with the largest noted within the lower lumbar spine and upper sacrum. 4. Degenerative disc disease from L2 through L5. - Procedures Date of procedure: 08/04/18 Pre-op diagnosis: GI bleed, melena, anemia, weight loss Procedure: PROCEDURE PERFORMED EGD with biopsy PROCEDURE: The procedure, risks and benefits were discussed with Patient/POA and informed consent was obtained. Anesthesia sedated Patient with Diprivan. Patient was placed in the left lateral decubitus position. EGD: The Pentax videoscope was introduced through the oropharynx and advanced to the second portion of the duodenum under direct visualization. Retroflexion was performed in the stomach. FINDINGS: The esophagus this was unremarkable except for a short segment of Stern's at the distal end measuring less than 1 cm this was biopsied The stomach there was some mild patchy erythema in the antrum but no ulcerations no erosions no blood or bleeding antral biopsies were taken for further evaluation The duodenum this was normal ESTIMATED BLOOD LOSS: None SPECIMENS REMOVED: Esophageal and gastric biopsies COMPLICATIONS: None IMPRESSION: Short segment Stern's esophagus Mild gastritis PLAN: Await biopsies Continue with pantoprazole 40 mg daily EGD in 2 years Advance diet as tolerated Assessment and Plan - Assessment (1) GI bleed Code(s): K92.2 - Gastrointestinal hemorrhage, unspecified Status: Acute (2) Cachectic Code(s): R64 - Cachexia Status: Chronic (3) COPD (chronic obstructive pulmonary disease) Code(s): J44.9 - Chronic obstructive pulmonary disease, unspecified Status: Chronic (4) Weakness Code(s): R53.1 - Weakness Status: Acute (5) Frequent falls Code(s): R29.6 - Repeated falls Status: Acute (6) Unintentional weight loss Code(s): R63.4 - Abnormal weight loss Status: Acute - Plan 57-year-old male with a past medical history of COPD, Stern's esophagus and EtOH abuse. He presents to the ED for an evaluation of weakness -per ED report he was found lying on the side of the road and was picked up by EMS. He was found to have a blood sugar of 50 at that time and endorsed that he had not eaten in a few days; given D50 by EMS. He says he has been so weak he could not walk and had multiple falls. He endorses black stool and occasional emesis with some red blood in it. Febrile illness, Unknown source -WBC elevated at 17 -UA ordered and is negative -Chest x-ray ordered resulted no acute process -Lactic acid elevated at 2.5 -Blood cultures ordered -If continued to have elevated temperature today will consult ID for recommendation -Patient denies any abdominal pain, coughing or congestion, denies any symptoms BLOOD CULTURES ARE GROWING START ON VANCO AND ZOSYN GI bleed, resolved Likely secondary to esophageal varices, hx of Barretts esophagus -GI consulted, appreciate assistance. -s/p EGD 08/04 showing mild gastritis and short segment of Stern's esophagus. Repeat EGD in 2 yrs. -Protonix drip started by ED, discontinued. Changed to po Protonix 40mg BID. -GI has signed off. -patient is tolerating oral intake, Hgb stable at 11 -No active bleeding Anemia - Likely acute on chronic, multifactorial due to active GIB, ongoing alcohol abuse and suspected liver disease -stool Hemoccult neg -hgb slowly trended down, 10.4 to 8.9, now Hgb much improved to 11. -iron studies: iron 24, TIBC 129, %sat 18.6, ferritin 1750 - suggests anemia of chronic disease -continue to monitor H&H as indicated, stable Hypotension/orthostatic hypotension Blood pressure in the low side ranging from 85/53 - 102/61 -s/p IV fluid half-normal saline times 2 L, restart IV fluid for low blood pressures and dizziness -Encourage increase fluid intake -Likely contributing to dizziness and weakness -Monitor orthostatic hypotension -Not on any blood pressure medication -Add LEOPOLDO hose bilateral -Increase midodrine dose again for persistent low blood pressure and dizziness -monitor BP Severe Hypokalemia, resolved K dropped to 2.7, improved, 4.0 on 08/14/18 -replace as needed -monitor BMP EtOH abuse Transaminitis, Likely due to EtOH, resolved Hypophosphatemia, likely due to EtOH -[facility] protocol -Counseled cessation -Thiamine, folic acid, MVI daily -no signs of withdrawal, monitor for signs of withdrawal -Monitor LFT, phosphorus level Weakness and unintentional weight loss Protein Calorie Malnutrition Hypoalbuminemia -CT abd/pelvis shows chronic pancreatitis with some calcifications in the head and uncinate process, diffuse hepatic fatty infiltration -B12 1258, albumin level 2.3, total protein 5.5 -Hepatitis and HIV panel nonreactive -PT eval/tx - recommends rehab. Patient is self pay. Increased PT to daily . DW Case management. -Consult relay assembler, appreciate recommendations: Nutrition dense foods low-fat yogurt and milk add Ensure pudding twice daily to add to nutrition -added Ensure to diet order TID, encouraged to drink -Weight on admission 47.21 kg, on 08/10/18: 48.6 kg, weight 08/11/18: 46 kg, today 46 -continue extensive Physical therapy, likely need a walker to go home for increase mobility and safety Thrombocytopenia Likely secondary to liver disease -INR stable, 1.3 -platelets improving, 360 on 08/14/18 -monitor for any bleeding -monitor CBC COPD Not in acute exacerbation, Ongoing tobaccoism -CXR shows chronic COPD changes but no acute process -continue on nicotine patch -Duonebs prn -monitor respiratory status -counseling on smoking cessation -no SOB. no Wheezes DVT prophylaxis: SCDs; Chemical prophylaxis contraindicated due to GI bleed FEVERS/SEPSIS MRSA ON VANCO AND ZOSYN HAD ECHO 11-9 AM LABS GUY RN AND PT AND CM Code Status: FULL CODE Discussed Condition With: RN AND PT AND CM Discharge Planning: PENDING ID CLEARANCE
--- NOTE | 2018-08-18 11:20 | ECHRPT ---
Indication: Sepsis Possible Endocarditis CONCLUSIONS Normal left ventricular size. Wall thickness is measured at the upper limits of normal. The left ventricular systolic function is normal with an estimated ejection fraction in the range of 55-60%. There is trace tricuspid valve regurgitation. The estimated pulmonary arterial pressure is 51 mmHg. No obvious vegetations observed BP: / HR: Rhythm: MEASUREMENTS (Male / Female) Normal Values Technical Quality:Fair 2D ECHO LV Diastolic Diameter PLAX 3.7 cm 4.2 - 5.9 / 3.9 - 5.3 cm LV Systolic Diameter PLAX 3.0 cm IVS Diastolic Thickness 1.1 cm 0.6 - 1.0 / 0.6 - 0.9 cm LVPW Diastolic Thickness 1.1 cm 0.6 - 1.0 / 0.6 - 0.9 cm LV Relative Wall Thickness 0.6 RV Internal Dim ED PLAX 3.3 cm LVOT Diameter 2.3 cm Aortic Root Diameter 3.3 cm LA Systolic Diameter LX 3.3 cm 3.0 - 4.0 / 2.7 - 3.8 cm DOPPLER AV Peak Velocity 134.0 cm/s AV Peak Gradient 7.2 mmHg LVOT Peak Velocity 113.0 cm/s LVOT Peak Gradient 5.1 mmHg AV Area Cont Eq pk 3.5 cm Mitral E Point Velocity 112.0 cm/s Mitral A Point Velocity 59.7 cm/s Mitral E to A Ratio 1.9 LV E' Lateral Velocity 14.1 cm/s Mitral E to LV E' Lateral Ratio 7.9 LV E' Septal Velocity 16.3 cm/s Mitral E to LV E' Septal Ratio 6.9 TR Peak Velocity 319.0 cm/s TR Peak Gradient 40.7 mmHg Right Atrial Pressure 10.0 mmHg Pulmonary Artery Systolic Pressu 50.7 mmHg Right Ventricular Systolic Press 50.7 mmHg PV Peak Velocity 105.0 cm/s PV Peak Gradient 4.4 mmHg FINDINGS LEFT VENTRICLE Normal left ventricular size. Wall thickness is measured at the upper limits of normal. The left ventricular systolic function is normal with an estimated ejection fraction in the range of 55-60%. RIGHT VENTRICLE Normal right ventricular size and systolic function. LEFT ATRIUM The left atrial size is normal. RIGHT ATRIUM The right atrial size is normal. ATRIAL SEPTUM Normal atrial septal thickness without atrial level shunting by limited color doppler interrogation. AORTA The aortic root and proximal ascending aorta are normal in size on limited imaging. MITRAL VALVE Structurally normal mitral valve. No mitral valve stenosis or regurgitation. AORTIC VALVE Trileaflet aortic valve. No aortic valve stenosis or regurgitation. TRICUSPID VALVE There is trace tricuspid valve regurgitation. The estimated pulmonary arterial pressure is 51 mmHg. PULMONARY VALVE No pulmonary valve regurgitation or stenosis. VESSELS The inferior vena cava is normal in size. PERICARDIUM No pericardial effusion. Zohaib Neville MD, FACC (Electronically Signed) Final Date:18 August 2018 11:19
--- NOTE | 2018-08-18 15:05 | P.PNID ---
Subjective Remarks: Patient complains of pain in the back and buttock. Has swelling and redness of the left buttock. Still has low-grade fever. WBC remain elevated. Denies SOB. Denies dysuria. 2D echocardiogram unremarkable. Lumbar spine MRI without evidence of osteomyelitis. Urine culture has gram-negative marie. Blood culture has MRSA. A 67-year-old white male who was admitted to the hospital on 08/03/2018 when he presented with weakness. Afebrile on admission and his white blood cell count was normal. The patient was admitted and a chest x-ray showed changes of chronic pulmonary disease. The patient was afebrile for most of that admission. 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 Temperature was again noted to be 101 earlier today. His white blood cell count increased from 10.0 on 08/14/2018 to 17.0. He had a CT scan of the abdomen and pelvis on 08/03/2018, which showed chronic pancreatitis with some calcification in the head and uncinate process, but no acute pancreatitis. Past Medical History: PAST MEDICAL HISTORY: Chronic pancreatitis, COPD, Stern's esophagus, rectal prolapse, history of hernia repair. Allergies/Adverse Reactions: Allergies No Known Allergies Allergy (Verified 08/03/18 13:56) Objective Vital Signs 08/17/18 16:00 08/17/18 20:00 08/18/18 00:00 Temperature 97.7 F 99.8 F H 98.3 F Pulse Rate 70 91 H 88 Respiratory Rate 20 18 18 Blood Pressure 98/54 L 97/54 L 98/53 L Pulse Oximetry 98 94 L 92 L 08/18/18 08:00 08/18/18 12:00 Temperature 100.5 F H 98.0 F Pulse Rate 73 73 Respiratory Rate 18 18 Blood Pressure 84/51 L 84/52 L Pulse Oximetry 96 100 Intake & Output 08/17/18 08/18/18 08/18/18 18:59 06:59 18:59 Intake Total 350 / 350 1450 / 1450 1000 / 1000 Output Total 500 / 500 Balance 350 / 350 950 / 950 1000 / 1000 Weight 53.6 kg Intake: IV 350 / 350 1450 / 1450 1000 / 1000 1/2 Normal Saline Inj 1,000 ML 1000 / 1000 1000 / 1000 @ 125 mls/hr IV.CONT .Q8H [facility] Rx#:[id number] Zosyn 4.5 GM Premix 4.5 gm In 100 / 100 200 / 200 100 ml @ 200 mls/hr IV.SIG Q8H [facility] Rx#:[id number] Vancomycin Inj 1,000 MG In NS 250 / 250 250 / 250 Inj 250 ML @ 250 mls/hr IV.SIG Q12H [facility] Rx#:[id number] Output: Urine 500 / 500 Other: # Voids 9 # Bowel Movements 3 2 08/16/18 08:31 Blood - Peripheral Aerobic Blood Culture - Preliminary S. aureus MRSA 08/16/18 08:31 Blood - Peripheral Anaerobic Blood Culture - Preliminary S. aureus MRSA 08/16/18 08:25 Blood - Peripheral Aerobic Blood Culture - Preliminary S. aureus MRSA 08/16/18 08:25 Blood - Peripheral Anaerobic Blood Culture - Preliminary S. aureus MRSA 08/16/18 18:33 Clean Catch Urine Urine Culture - Final Citrobacter koseri Lab - Hematology Results 08/16/18 08/17/18 08/18/18 19:25 04:55 06:08 WBC 14.0 H 11.0 RBC 2.27 L 2.15 L Hgb 9.0 L 8.3 L Hct 25.8 L 24.1 L MCV 113.8 H 112.1 H MCH 39.6 H 38.5 H MCHC 34.8 34.3 RDW 16.0 16.9 Plt Count 335 364 MPV 9.0 8.8 Neut % (Auto) 76.8 H 73.4 H Lymph % (Auto) 8.9 L 8.5 L [place] % (Auto) 13.2 H 15.4 H Eos % (Auto) 0.2 1.2 Baso % (Auto) 0.9 1.5 Neut # (Auto) 10.7 H 8.1 H Lymph # (Auto) 1.2 0.9 L [place] # (Auto) 1.8 H 1.7 H Eos # (Auto) 0.0 0.1 Baso # (Auto) 0.1 0.2 WBC Differential . . Differential Comment Auto diff final Auto diff final ESR 100 H Lab - Chemistry Results 08/16/18 08/16/18 08/17/18 05:16 19:25 04:55 Sodium 140 Potassium 3.8 Chloride 106 Carbon Dioxide 26.3 Anion Gap 8 BUN 8 Creatinine 0.44 L Estimated GFR Greater than 89 POC Glucose Random Glucose 99 Lactic Acid 2.2 H Calcium 7.7 L Phosphorus Magnesium Total Bilirubin AST ALT Alkaline Phosphatase C-Reactive Protein 2.50 H Total Protein Albumin TSH Free T4 08/18/18 08/18/18 06:08 12:13 Sodium 141 Potassium 3.9 Chloride 107 Carbon Dioxide 26.5 Anion Gap 8 BUN 8 Creatinine 0.49 L Estimated GFR Greater than 89 POC Glucose 124 H Random Glucose 80 Lactic Acid Calcium 7.6 L Phosphorus 3.3 Magnesium 1.8 Total Bilirubin 0.6 AST 13 L ALT 14 Alkaline Phosphatase 113 C-Reactive Protein Total Protein 5.5 L Albumin 1.9 L TSH 2.270 Free T4 0.90 Imaging: ITS Impressions Head CT 08/03/18 14:01 CONCLUSION: 1. Chronic sinusitis with regional bony thickening in the superior aspect of the left maxillary antra. 2. Mild, symmetric cortical atrophy. 3. Nothing acute. . Abdomen/Pelvis CT 08/03/18 15:28 CONCLUSION: 1. Chronic pancreatitis with some calcifications in the head and uncinate process. No acute pancreatitis. 2. Diffuse hepatic fatty infiltration. 3. Bibasilar emphysematous changes with no acute infiltrate. Chest X-Ray 08/16/18 00:00 CONCLUSION: 1. No acute abnormality or significant interval change. Hip X-Ray 08/16/18 00:00 CONCLUSION: 1. Small crescentic calcification seen inferior to the inferior acetabulum/ femoral head may be vascular in etiology although a small avulsion fracture cannot be entirely excluded. Lumbar Spine MRI 08/17/18 00:00 CONCLUSION: 1. No evidence of vertebral body osteomyelitis. 2. Minimal circumferential spinal stenosis and bilateral foraminal narrowing at L4-5. 3. Multilevel bilateral perineural root sleeve cysts noted with the largest noted within the lower lumbar spine and upper sacrum. 4. Degenerative disc disease from L2 through L5. Physical Exam: PHYSICAL EXAMINATION: GENERAL: Cachectic-appearing male who is in no acute distress. Awake and alert and oriented. HEENT: Head atraumatic. Extraocular movements are grossly intact. Pupils reactive to light. No icterus. Oropharynx: Moist mucosa. No thrush. No lesions. NECK: Supple. No adenopathy. LUNGS: Diminished breath sounds. HEART: Regular, S1, S2. No murmurs. No rubs. No gallops. ABDOMEN: Bowel sounds present. Soft, flat, nontender. Back: tenderness across the lower back. Left buttock has swelling and induration and erythema Increased warmth. EXTREMITIES: No clubbing, cyanosis or edema. Muscle wasting is apparent at the extremities. SKIN: No diffuse rash. NEUROLOGIC: No gross focal finding. PSYCHIATRIC: Calm and cooperative. Assessment and Plan - Plan IMPRESSION: MRSA bacteremia/Sepsis. Fever and leukocytosis. Elevated lactic acid. Patient without clear foci of sepsis to indicate a source of infection. UTI - gram negative due to Citrobacter. Buttock/cellulitis abscess. Source of sepsis. Patient previously fell onto the buttock prior to admission. Back Pain. RECOMMENDATIONS: 1. Continue vancomycin. 2. Change piperacillin/tazobactam to ceftriaxone. 3. General surgery consult for abscess of the buttock. 4. Repeat the blood cultures. Continue the current treatment. Please call ID iron pellet tester this weekend if needed.
[2018-08-18 15:52] LABS: Hemoglobin A1c 4.3 % (4.3-6.0)
--- NOTE | 2018-08-18 16:53 | P.CONGS ---
[facility] Gen Surgery Consult Note Consult date: 08/18/18 Narrative: 57 yo M with prolonged hospitalization is noted to have fevers, leukocytosis consistent with sepsis and undergoing sepsis workup. Today he c/o pain in the buttock/lower back area and buttock abscesses were noted. I've been consulted for further evaluation and treatment. Review of Systems All other systems reviewed negative except as stated in [facility] - History History Provided By: Patient - Medical History Medical History: Medical History (Last Updated 08/18/18 @ 08:16 by Merary Bray) Barretts esophagus COPD (chronic obstructive pulmonary disease) Chronic pancreatitis Fatty liver MDRO (multiple drug resistant organisms) resistance Onset Date: ~08/16/18 Rectal prolapse - Surgical History Surgical History: Surgical History (Last Reviewed 08/14/18 @ 09:09 by Ana Johnson) History of hernia repair - Family History Family History: Family History (Last Reviewed 08/13/18 @ 07:46 by Amy Licona) Father AAA (abdominal aortic aneurysm, ruptured) Mother CVA (cerebral vascular accident) - Tobacco History Second Hand Smoke Exposure: Yes Tobacco Use In Past 30 Days: Yes Smoking Status: Light tobacco smoker Tobacco Type: Cigarettes - Alcohol History How Often Do You Have a Drink Containing Alcohol: 2 to 3 times a week - Substance Use History Substance History: No History of Abuse - Travel History Recent Travel in the [place] Within the Last 8 Weeks: No Recent Travel Out of the Country Within the Last 8 Weeks: No - Immunization History Tetanus Immunization: >5 Years Hx Influenza Vaccine This Season: No Medications and Allergies Active Medications: Active Medications Acetaminophen (Tylenol) 650 mg PO Q4H PRN PRN Reason: pain or fever >100.5 Last Admin: 08/18/18 08:55 Dose: 650 mg Albuterol (Duoneb Neb (Prn)) 1 ampul NEB Q4HR NEB PRN PRN Reason: SHORTNESS OF BREATH/WHEEZING Calcium Carbonate (Tums Chew) 500 mg CHEW BID [facility] Last Admin: 08/18/18 08:48 Dose: 500 mg Flumazenil (Romazecon Inj) 0.2 mg IV.PUSH Q1M PRN PRN Reason: OVERSEDATION Haloperidol Lactate (Haldol Inj) 1 mg IV.PUSH Q15M PRN PRN Reason: for severe agitation Sodium Chloride (1/2 Normal Saline Inj) 1,000 mls @ 125 mls/hr IV.CONT .Q8H [facility] Last Admin: 08/18/18 12:15 Dose: 125 mls/hr Pharmacy Profile Note (Vancomycin Consult Pharmacy) 0 mls @ 0 mls/hr OTHER UNSCH [facility] Vancomycin HCl 1,000 mg/ (Sodium Chloride) 250 mls @ 250 mls/hr IV.SIG Q12H [facility] Last Infusion: 08/18/18 04:30 Dose: Infused Ceftriaxone Sodium 2,000 mg/ (Sodium Chloride) 100 mls @ 200 mls/hr IV.SIG Q24H [facility] Lorazepam (Ativan Inj) 1 mg IV.PUSH Q4H PRN PRN Reason: for CIWA 8-10 Last Admin: 08/04/18 09:04 Dose: 1 mg Lorazepam (Ativan Inj) 2 mg IV.PUSH Q15M PRN PRN Reason: for CIWA > 20 Lorazepam (Ativan Inj) 2 mg IV.PUSH Q1H PRN PRN Reason: for CIWA 15-20 Lorazepam (Ativan Inj) 2 mg IV.PUSH Q2H PRN PRN Reason: for CIWA 11-14 Lorazepam (Ativan) 1 mg PO Q4H PRN PRN Reason: for CIWA 8-10 Last Admin: 08/08/18 20:26 Dose: 1 mg Lorazepam (Ativan) 2 mg PO Q2H PRN PRN Reason: for CIWA 11-14 Midodrine (Proamatine) 10 mg PO TID [facility] Last Admin: 08/18/18 08:48 Dose: 10 mg Miscellaneous (Pill Splitter) 1 each OTHER UNSCH PRN PRN Reason: SEE LABEL COMMENTS Miscellaneous Information ([facility] Ordered Lab Info) 0 each OTHER ONCE ONE Stop: 08/19/18 00:46 Multivitamins/Folic Acid/Vitamin C (Flintstones) 1 tab CHEW DAILY [facility] Last Admin: 08/18/18 08:48 Dose: 1 tab Nicotine (Habitrol 21 Mg Patch.24 Hr) 1 patch T-DERMAL DAILY [facility] Last Admin: 08/18/18 08:49 Dose: 1 patch Pantoprazole Sodium (Protonix) 40 mg PO BID [facility] Last Admin: 08/18/18 08:48 Dose: 40 mg Patch Removal (Remove Old Patch) 1 each T-DERMAL DAILY [facility] Last Admin: 08/18/18 08:49 Dose: 1 each Sodium Chloride (Ns Flush) 2 ml IV.FLUSH PRN PRN PRN Reason: FLUSH AFTER USING IV ACCESS Sodium Chloride (Ns Flush) 2 ml IV.FLUSH BID [facility] Last Admin: 08/18/18 08:49 Dose: Not Given Thiamine HCl (Vitamin B1) 100 mg PO BID [facility] Last Admin: 08/18/18 08:48 Dose: 100 mg Tramadol HCl (Ultram) 50 mg PO Q8H PRN PRN Reason: pain 1 to 10 Last Admin: 08/15/18 17:38 Dose: 50 mg Allergies Allergy/AdvReac Type Severity Reaction Status Date / Time No Known Allergies Allergy Verified 08/03/18 13:56 Home Medications Medication Instructions Recorded Confirmed Type No Known Home Medications 08/03/18 08/03/18 History Exam Vital signs: Vital Signs 08/17/18 20:00 08/18/18 00:00 08/18/18 08:00 Temperature 99.8 F H 98.3 F 100.5 F H Pulse Rate 91 H 88 73 Respiratory Rate 18 18 18 Blood Pressure 97/54 L 98/53 L 84/51 L Pulse Oximetry 94 L 92 L 96 08/18/18 12:00 Temperature 98.0 F Pulse Rate 73 Respiratory Rate 18 Blood Pressure 84/52 L Pulse Oximetry 100 Intake & Output 08/17/18 08/18/18 08/18/18 18:59 06:59 18:59 Intake Total 350 / 350 1450 / 1450 1000 / 1000 Output Total 500 / 500 Balance 350 / 350 950 / 950 1000 / 1000 Weight 53.6 kg Intake: IV 350 / 350 1450 / 1450 1000 / 1000 1/2 Normal Saline Inj 1,000 ML 1000 / 1000 1000 / 1000 @ 125 mls/hr IV.CONT .Q8H [facility] Rx#:[id number] Zosyn 4.5 GM Premix 4.5 gm In 100 / 100 200 / 200 100 ml @ 200 mls/hr IV.SIG Q8H [facility] Rx#:[id number] Vancomycin Inj 1,000 MG In NS 250 / 250 250 / 250 Inj 250 ML @ 250 mls/hr IV.SIG Q12H [facility] Rx#:[id number] Output: Urine 500 / 500 Other: # Voids 9 # Bowel Movements 3 2 Narrative: GENERAL: Awake and alert. No acute distress. Cooperative. Appears emaciated with decreased muscle mass of the proximal arms and legs temporal wasting. HEAD: Normocephalic. Atraumatic. EYES: Pupils equal round and reactive to light bilaterally. No scleral icterus. ENT: Moist oral mucosa. NECK: Trachea midline. CHEST: Lungs clear to auscultation bilaterally with no wheezing or rhonchi. No respiratory distress. CARDIOVASCULAR: Regular rate and rhythm. EXTREMITIES: No cyanosis or edema. SKIN: Indurated and fluctuant area on the right posterior buttock. Larger fluctuant indurated and erythematous area in the left posterior and lateral buttock. Results - Labs 08/18/18 06:08 08/18/18 06:08 Laboratory Results - last 24 hr 08/18/18 08/18/18 08/18/18 06:08 06:08 12:13 WBC 11.0 RBC 2.15 L Hgb 8.3 L Hct 24.1 L MCV 112.1 H MCH 38.5 H MCHC 34.3 RDW 16.9 Plt Count 364 MPV 8.8 Neut % (Auto) 73.4 H Lymph % (Auto) 8.5 L [place] % (Auto) 15.4 H Eos % (Auto) 1.2 Baso % (Auto) 1.5 Neut # (Auto) 8.1 H Lymph # (Auto) 0.9 L [place] # (Auto) 1.7 H Eos # (Auto) 0.1 Baso # (Auto) 0.2 WBC Differential . Differential Comment Auto diff final Sodium 141 Potassium 3.9 Chloride 107 Carbon Dioxide 26.5 Anion Gap 8 BUN 8 Creatinine 0.49 L Estimated GFR Greater than 89 POC Glucose 124 H Random Glucose 80 Calcium 7.6 L Phosphorus 3.3 Magnesium 1.8 Total Bilirubin 0.6 AST 13 L ALT 14 Alkaline Phosphatase 113 Total Protein 5.5 L Albumin 1.9 L TSH 2.270 Free T4 0.90 - Imaging Imaging: ITS Impressions Head CT 08/03/18 14:01 CONCLUSION: 1. Chronic sinusitis with regional bony thickening in the superior aspect of the left maxillary antra. 2. Mild, symmetric cortical atrophy. 3. Nothing acute. . Abdomen/Pelvis CT 08/03/18 15:28 CONCLUSION: 1. Chronic pancreatitis with some calcifications in the head and uncinate process. No acute pancreatitis. 2. Diffuse hepatic fatty infiltration. 3. Bibasilar emphysematous changes with no acute infiltrate. Chest X-Ray 08/16/18 00:00 CONCLUSION: 1. No acute abnormality or significant interval change. Hip X-Ray 08/16/18 00:00 CONCLUSION: 1. Small crescentic calcification seen inferior to the inferior acetabulum/ femoral head may be vascular in etiology although a small avulsion fracture cannot be entirely excluded. Lumbar Spine MRI 08/17/18 00:00 CONCLUSION: 1. No evidence of vertebral body osteomyelitis. 2. Minimal circumferential spinal stenosis and bilateral foraminal narrowing at L4-5. 3. Multilevel bilateral perineural root sleeve cysts noted with the largest noted within the lower lumbar spine and upper sacrum. 4. Degenerative disc disease from L2 through L5. Assessment and Plan - Assessment (1) Abscess of buttock, left Code(s): L02.31 - Cutaneous abscess of buttock Status: Acute (2) Abscess of buttock, right Code(s): L02.31 - Cutaneous abscess of buttock Status: Acute - Plan Bilateral buttock abscesses in patient with fevers and leukocytosis. Recommend to proceed to the operating room for incision and drainage. I discussed this in detail with the patient and he desires to proceed BONNIE.
[2018-08-18] MEDS ORDERED: Sodium Chlor 0.9% Inj 500 ML IV.SIG SCH (20:00)
[2018-08-18] MEDS ORDERED: Metoprolol Tartrate 25 MG Tablet PO ONE (20:00)
[2018-08-18] MEDS ORDERED: Chlorhexidine Gluconate 2% 1 Pack (2 Cloths) TOPICAL ONE (20:00)
[2018-08-18] MEDS ORDERED: Bupivacaine/Epinephrine 0.5% Inj 50 ML Vial ONE (20:52)
[2018-08-18] MEDS ORDERED: Glycopyrrolate Inj 1 MG/5 ML Syringe IV.PUSH ONE (21:07)
[2018-08-18] MEDS ORDERED: Succinylcholine Inj 100 MG/5 ML Syringe IV.PUSH ONE (21:07)
[2018-08-18] MEDS ORDERED: Neostigmine Inj 5 MG/5 ML Syringe IV.PUSH ONE (21:07)
[2018-08-18] MEDS ORDERED: Lidocaine PF 1% Inj 5 ML Syringe OTHER ONE (21:07)
--- NOTE | 2018-08-18 21:49 | P.OP ---
- Preoperative Diagnosis (1) Abscess of buttock, left (2) Abscess of buttock, right - Postoperative Diagnosis (1) Abscess of buttock, left (2) Abscess of buttock, right Date of procedure: 08/18/18 Procedure: Incision and drainage of bilateral buttock abscesses Anesthesia: DUNCANA Surgeon: Bill Morel MD Estimated blood loss (mL): 5 Pathology: other (culture) Operation and Findings: Operative findings: The patient had large left buttock abscess and medium size right buttock abscess. Procedure in detail: Patient was taken to the operating room and general endotracheal anesthesia was induced. He was then placed in prone position. Surgical timeout was performed to verify correct patient procedure and site. On the right buttock local anesthetic was injected over the site of induration and fluctuance. 2-3 cm incision was made. Moderate amount of purulent fluid was drained. The cavity was irrigated with a mixture of saline and peroxide after all loculations were broken up. This was packed with quarter inch iodoform gauze. Next on the left buttock there was a large abscess and again local anesthetic injected over the site. A larger 5 or 6 cm incision was made and there was copious purulent fluid drained. Culture was taken. Loculations were broken up and the cavity irrigated with peroxide saline solution. Quarter inch iodoform gauze was placed and cultures applied. Patient tolerated the procedure well
[2018-08-18] MEDS ORDERED: fentaNYL Citrate Inj 100 MCG/2 ML Ampul ONE (22:05)
[2018-08-19] MEDS ORDERED: Pharmacy Ordered Lab Info OTHER ONE (00:45)
[2018-08-19] MEDS: Vancomycin Inj 1,000 MG in Sodium Chlor 0.9% Inj 250 ML IV.SIG SCH ×2 (01:19→14:44)
[2018-08-19 02:24] LABS: Alanine Aminotransferase 14 U/L (12-78); Albumin 1.9 g/dL (3.4-5.0); Alkaline Phosphatase 120 U/L (45-117); Anion Gap 8 meq/L (5-15); Aspartate Aminotransferase 15 U/L (15-37); Blood Urea Nitrogen 9 mg/dL (7-18); Calcium 7.6 mg/dL (8.5-10.1); Carbon Dioxide 27.2 meq/L (21.0-32.0); Chloride 105 meq/L (98-107); Glomerular Filtration Rate Greater Than 89 mL/min (>89); Glucose,Random 185 mg/dL (74-106); Magnesium 1.8 mg/dL (1.5-2.5); Phosphorus 3.4 mg/dL (2.5-4.9); Sodium 140 meq/L (136-145); Total Protein 5.4 g/dL (6.4-8.2); Vancomycin,Trough 1.3 mcg/mL (5.0-10.0)
[2018-08-19] MEDS: Sodium Chloride 0.9% 2 ML Flush BID IV.FLUSH SCH ×3 (03:48→21:34)
[2018-08-19] MEDS: Sodium Chloride 0.45 % Inj 1,000 ML IV.CONT SCH ×2 (05:16→05:21)
[2018-08-19 07:21] LABS: Baso # (Auto) 0.1 th/mm3 (0.0-0.2); Baso % (Auto) 0.7 % (0.0-2.0); Eos # (Auto) 0.2 th/mm3 (0.0-0.4); Eos % (Auto) 2.2 % (0.0-4.0); Hematocrit 25.1 % (39.0-51.0); Hemoglobin 8.5 gm/dL (13.0-17.0); Lymph # (Auto) 1.4 th/mm3 (1.0-4.8); Lymph % (Auto) 13.2 % (9.0-44.0); Mean Corpuscular HGB Conc 33.7 % (32.0-36.0); Mean Corpuscular Hemoglobin 37.9 pg (27.0-34.0); Mean Corpuscular Volume 112.5 fL (80.0-100.0); Mean Platelet Volume 8.6 fL (7.0-11.0); Mono # (Auto) 1.4 th/mm3 (0.0-0.9); Mono % (Auto) 13.9 % (0.0-8.0); Neut # (Auto) 7.3 th/mm3 (1.8-7.7); Platelet Count 374 th/mm3 (150-450); Red Blood Count 2.23 mil/mm3 (4.50-5.90); Red Cell Distribution Width 17.2 % (11.6-17.2); White Blood Count 10.4 th/mm3 (4.0-11.0)
[2018-08-19] MEDS: Multivit/Folic Acid/Minerals Chewable Tablets CHEW SCH (08:58)
--- NOTE | 2018-08-19 10:43 | P.PNGS ---
Subjective Interval history: Pain improved in buttocks area. Physical Exam Vital signs: Vital Signs 08/18/18 12:00 08/18/18 16:00 08/18/18 20:00 Temperature 98.0 F 98.1 F 98.6 F Pulse Rate 73 80 80 Respiratory Rate 18 16 18 Blood Pressure 84/52 L 96/51 L 102/56 L Pulse Oximetry 100 98 95 08/18/18 21:59 08/18/18 22:00 08/18/18 22:15 Temperature 98.9 F Pulse Rate 86 85 71 Respiratory Rate 14 14 16 Blood Pressure 98/57 L 93/60 L 95/55 L Pulse Oximetry 94 L 94 L 94 L 08/18/18 22:30 08/19/18 00:00 08/19/18 01:40 Temperature 99.2 F 97.9 F Pulse Rate 67 87 Respiratory Rate 16 18 Blood Pressure 99/59 L 88/50 L 90/49 L Pulse Oximetry 95 94 L 08/19/18 04:00 08/19/18 08:00 Temperature 97.8 F 98.8 F Pulse Rate 71 75 Respiratory Rate 18 16 Blood Pressure 87/50 L 97/57 L Pulse Oximetry 96 98 Intake & Output 08/18/18 08/19/18 08/19/18 18:59 06:59 18:59 Intake Total 1850 / 1850 1690 / 1690 Output Total 600 / 600 Balance 1250 / 1250 1680 / 1680 Weight 56 kg Intake: IV 1250 / 1250 850 / 850 1/2 Normal Saline Inj 1,000 ML 1000 / 1000 600 / 600 @ 125 mls/hr IV.CONT .Q8H [facility] Rx#:[id number] Vancomycin Inj 1,000 MG In NS 250 / 250 250 / 250 Inj 250 ML @ 250 mls/hr IV.SIG Q12H [facility] Rx#:[id number] Oral 600 / 600 240 / 240 Anesthesia Amount 600 / 600 Output: Urine 600 / 600 0 / 0 Estimated Blood Loss Other: # Voids 2 # Bowel Movements 1 1 Narrative: Comfortable in bed Bandages in place bilateral buttocks. Results - Labs 08/19/18 06:10 08/19/18 01:15 Laboratory Results - last 24 hr 08/18/18 08/18/18 08/18/18 06:08 12:13 17:19 WBC RBC Hgb Hct MCV MCH MCHC RDW Plt Count MPV Neut % (Auto) Lymph % (Auto) [place] % (Auto) Eos % (Auto) Baso % (Auto) Neut # (Auto) Lymph # (Auto) [place] # (Auto) Eos # (Auto) Baso # (Auto) WBC Differential Differential Comment Sodium Potassium Chloride Carbon Dioxide Anion Gap BUN Creatinine Estimated GFR POC Glucose 124 H 134 H Random Glucose Hemoglobin A1c 4.3 Calcium Phosphorus Magnesium Total Bilirubin AST ALT Alkaline Phosphatase Total Protein Albumin Vancomycin Trough 08/18/18 08/19/18 08/19/18 22:02 01:15 06:10 WBC 10.4 RBC 2.23 L Hgb 8.5 L Hct 25.1 L MCV 112.5 H MCH 37.9 H MCHC 33.7 RDW 17.2 Plt Count 374 MPV 8.6 Neut % (Auto) 70.0 Lymph % (Auto) 13.2 [place] % (Auto) 13.9 H Eos % (Auto) 2.2 Baso % (Auto) 0.7 Neut # (Auto) 7.3 Lymph # (Auto) 1.4 [place] # (Auto) 1.4 H Eos # (Auto) 0.2 Baso # (Auto) 0.1 WBC Differential . Differential Comment Auto diff final Sodium 140 Potassium 4.0 Chloride 105 Carbon Dioxide 27.2 Anion Gap 8 BUN 9 Creatinine 0.58 L Estimated GFR Greater than 89 POC Glucose 104 Random Glucose 185 H D Hemoglobin A1c Calcium 7.6 L Phosphorus 3.4 Magnesium 1.8 Total Bilirubin 0.4 AST 15 ALT 14 Alkaline Phosphatase 120 H Total Protein 5.4 L Albumin 1.9 L Vancomycin Trough 1.3 L 08/19/18 07:56 WBC RBC Hgb Hct MCV MCH MCHC RDW Plt Count MPV Neut % (Auto) Lymph % (Auto) [place] % (Auto) Eos % (Auto) Baso % (Auto) Neut # (Auto) Lymph # (Auto) [place] # (Auto) Eos # (Auto) Baso # (Auto) WBC Differential Differential Comment Sodium Potassium Chloride Carbon Dioxide Anion Gap BUN Creatinine Estimated GFR POC Glucose 100 Random Glucose Hemoglobin A1c Calcium Phosphorus Magnesium Total Bilirubin AST ALT Alkaline Phosphatase Total Protein Albumin Vancomycin Trough - Imaging Imaging: ITS Impressions Head CT 08/03/18 14:01 CONCLUSION: 1. Chronic sinusitis with regional bony thickening in the superior aspect of the left maxillary antra. 2. Mild, symmetric cortical atrophy. 3. Nothing acute. . Abdomen/Pelvis CT 08/03/18 15:28 CONCLUSION: 1. Chronic pancreatitis with some calcifications in the head and uncinate process. No acute pancreatitis. 2. Diffuse hepatic fatty infiltration. 3. Bibasilar emphysematous changes with no acute infiltrate. Chest X-Ray 08/16/18 00:00 CONCLUSION: 1. No acute abnormality or significant interval change. Hip X-Ray 08/16/18 00:00 CONCLUSION: 1. Small crescentic calcification seen inferior to the inferior acetabulum/ femoral head may be vascular in etiology although a small avulsion fracture cannot be entirely excluded. Lumbar Spine MRI 08/17/18 00:00 CONCLUSION: 1. No evidence of vertebral body osteomyelitis. 2. Minimal circumferential spinal stenosis and bilateral foraminal narrowing at L4-5. 3. Multilevel bilateral perineural root sleeve cysts noted with the largest noted within the lower lumbar spine and upper sacrum. 4. Degenerative disc disease from L2 through L5. Assessment and Plan - Assessment (1) Abscess of buttock, left Code(s): L02.31 - Cutaneous abscess of buttock Status: Acute (2) Abscess of buttock, right Code(s): L02.31 - Cutaneous abscess of buttock Status: Acute - Plan POD 1 s/p I&D bilateral buttock abscesses with copious drainage. BID iodoform packing changes. Encouraged nutritious diet and increased calories and protein. Can f/u with me in one week in office.
--- NOTE | 2018-08-19 11:21 | P.PNIM ---
Subjective Interval history: Pt seen and examined for f/u GI bleed, sepsis, and buttock abscesses. S/P I&D POD1. Reports feeling much better after drainage. Pain is minimal. Denies CP, SOB, abdominal pain, N/V. Tolerating PO. Ambulating. Physical Exam Vital signs: Vital Signs 08/18/18 12:00 08/18/18 16:00 08/18/18 20:00 Temperature 98.0 F 98.1 F 98.6 F Pulse Rate 73 80 80 Respiratory Rate 18 16 18 Blood Pressure 84/52 L 96/51 L 102/56 L Pulse Oximetry 100 98 95 08/18/18 21:59 08/18/18 22:00 08/18/18 22:15 Temperature 98.9 F Pulse Rate 86 85 71 Respiratory Rate 14 14 16 Blood Pressure 98/57 L 93/60 L 95/55 L Pulse Oximetry 94 L 94 L 94 L 08/18/18 22:30 08/19/18 00:00 08/19/18 01:40 Temperature 99.2 F 97.9 F Pulse Rate 67 87 Respiratory Rate 16 18 Blood Pressure 99/59 L 88/50 L 90/49 L Pulse Oximetry 95 94 L 08/19/18 04:00 08/19/18 08:00 Temperature 97.8 F 98.8 F Pulse Rate 71 75 Respiratory Rate 18 16 Blood Pressure 87/50 L 97/57 L Pulse Oximetry 96 98 Intake & Output 08/18/18 08/19/18 08/19/18 18:59 06:59 18:59 Intake Total 1850 / 1850 1690 / 1690 Output Total 600 / 600 Balance 1250 / 1250 1680 / 1680 Weight 56 kg Intake: IV 1250 / 1250 850 / 850 1/2 Normal Saline Inj 1,000 ML 1000 / 1000 600 / 600 @ 125 mls/hr IV.CONT .Q8H [facility] Rx#:[id number] Vancomycin Inj 1,000 MG In NS 250 / 250 250 / 250 Inj 250 ML @ 250 mls/hr IV.SIG Q12H [facility] Rx#:[id number] Oral 600 / 600 240 / 240 Anesthesia Amount 600 / 600 Output: Urine 600 / 600 0 / 0 Estimated Blood Loss Other: # Voids 2 # Bowel Movements 1 1 Narrative: GENERAL: Thin Cachectic male ambulating the room in NAD. SKIN: Warm and dry. HEENT: AT/NC. Pupils equal and round. MMM. NECK: Supple no tender LAD or JVD. HEART: RRR no m/r/g. LUNGS: CTAB without wheezes or crackles. ABDOMEN: +BS, soft, NT, ND. BUTTOCK: Bandages in place. EXTREMITIES: No LE edema. 2+ pedal pulses. NEURO: Awake and alert. Results - Labs CBC & Chem 7: 08/19/18 06:10 08/19/18 01:15 Laboratory Results - last 24 hr 08/18/18 08/18/18 08/18/18 06:08 12:13 17:19 WBC RBC Hgb Hct MCV MCH MCHC RDW Plt Count MPV Neut % (Auto) Lymph % (Auto) [place] % (Auto) Eos % (Auto) Baso % (Auto) Neut # (Auto) Lymph # (Auto) [place] # (Auto) Eos # (Auto) Baso # (Auto) WBC Differential Differential Comment Sodium Potassium Chloride Carbon Dioxide Anion Gap BUN Creatinine Estimated GFR POC Glucose 124 H 134 H Random Glucose Hemoglobin A1c 4.3 Calcium Phosphorus Magnesium Total Bilirubin AST ALT Alkaline Phosphatase Total Protein Albumin Vancomycin Trough 08/18/18 08/19/18 08/19/18 22:02 01:15 06:10 WBC 10.4 RBC 2.23 L Hgb 8.5 L Hct 25.1 L MCV 112.5 H MCH 37.9 H MCHC 33.7 RDW 17.2 Plt Count 374 MPV 8.6 Neut % (Auto) 70.0 Lymph % (Auto) 13.2 [place] % (Auto) 13.9 H Eos % (Auto) 2.2 Baso % (Auto) 0.7 Neut # (Auto) 7.3 Lymph # (Auto) 1.4 [place] # (Auto) 1.4 H Eos # (Auto) 0.2 Baso # (Auto) 0.1 WBC Differential . Differential Comment Auto diff final Sodium 140 Potassium 4.0 Chloride 105 Carbon Dioxide 27.2 Anion Gap 8 BUN 9 Creatinine 0.58 L Estimated GFR Greater than 89 POC Glucose 104 Random Glucose 185 H D Hemoglobin A1c Calcium 7.6 L Phosphorus 3.4 Magnesium 1.8 Total Bilirubin 0.4 AST 15 ALT 14 Alkaline Phosphatase 120 H Total Protein 5.4 L Albumin 1.9 L Vancomycin Trough 1.3 L 08/19/18 07:56 WBC RBC Hgb Hct MCV MCH MCHC RDW Plt Count MPV Neut % (Auto) Lymph % (Auto) [place] % (Auto) Eos % (Auto) Baso % (Auto) Neut # (Auto) Lymph # (Auto) [place] # (Auto) Eos # (Auto) Baso # (Auto) WBC Differential Differential Comment Sodium Potassium Chloride Carbon Dioxide Anion Gap BUN Creatinine Estimated GFR POC Glucose 100 Random Glucose Hemoglobin A1c Calcium Phosphorus Magnesium Total Bilirubin AST ALT Alkaline Phosphatase Total Protein Albumin Vancomycin Trough Microbiology 08/18/18 16:41 Blood - Peripheral Aerobic Blood Culture - Preliminary No growth in 1 day 08/18/18 16:41 Blood - Peripheral Anaerobic Blood Culture - Preliminary No growth in 1 day 08/18/18 16:35 Blood - Peripheral Aerobic Blood Culture - Preliminary No growth in 1 day 08/18/18 16:35 Blood - Peripheral Anaerobic Blood Culture - Preliminary No growth in 1 day 08/16/18 08:31 Blood - Peripheral Aerobic Blood Culture - Preliminary S. aureus MRSA 08/16/18 08:31 Blood - Peripheral Anaerobic Blood Culture - Preliminary S. aureus MRSA 08/16/18 08:25 Blood - Peripheral Aerobic Blood Culture - Preliminary S. aureus MRSA 08/16/18 08:25 Blood - Peripheral Anaerobic Blood Culture - Preliminary S. aureus MRSA 08/16/18 18:33 Clean Catch Urine Urine Culture - Final Citrobacter koseri - Procedures Date of procedure: 08/04/18 Pre-op diagnosis: GI bleed, melena, anemia, weight loss Procedure: PROCEDURE PERFORMED EGD with biopsy PROCEDURE: The procedure, risks and benefits were discussed with Patient/POA and informed consent was obtained. Anesthesia sedated Patient with Diprivan. Patient was placed in the left lateral decubitus position. EGD: The Pentax videoscope was introduced through the oropharynx and advanced to the second portion of the duodenum under direct visualization. Retroflexion was performed in the stomach. FINDINGS: The esophagus this was unremarkable except for a short segment of Stern's at the distal end measuring less than 1 cm this was biopsied The stomach there was some mild patchy erythema in the antrum but no ulcerations no erosions no blood or bleeding antral biopsies were taken for further evaluation The duodenum this was normal ESTIMATED BLOOD LOSS: None SPECIMENS REMOVED: Esophageal and gastric biopsies COMPLICATIONS: None IMPRESSION: Short segment Stern's esophagus Mild gastritis PLAN: Await biopsies Continue with pantoprazole 40 mg daily EGD in 2 years Advance diet as tolerated Assessment and Plan - Assessment (1) GI bleed Code(s): K92.2 - Gastrointestinal hemorrhage, unspecified Status: Acute (2) Cachectic Code(s): R64 - Cachexia Status: Chronic (3) COPD (chronic obstructive pulmonary disease) Code(s): J44.9 - Chronic obstructive pulmonary disease, unspecified Status: Chronic (4) Weakness Code(s): R53.1 - Weakness Status: Acute (5) Frequent falls Code(s): R29.6 - Repeated falls Status: Acute (6) Unintentional weight loss Code(s): R63.4 - Abnormal weight loss Status: Acute - Plan 57 year old male with COPD, Stern's esophagus, and EtOH abuse admitted on 08/04 after he was found lying on the side of the road by EMS. In the field he was found to have a blood sugar of 50 and at the time he had endorsed he hadn't eaten in days. He was given D50 by EMS. He also complained of weakness, multiple falls, melena, and occasional hematemesis. 1. Sepsis secondary to buttock abscess, UTI - Acute septic component resolved - WBC up to 17 - Lactic acid 2.5 - Urine culture with Citrobacter - Blood cultures 08/16 with MRSA in all four vials - ID following, on vancomycin and Rocephin - General surgery consulted and patient underwent I&D of buttock on 08/18 - Abscess culture pending - Appreciate the expertise of all consultants assisting in patients case 2. MRSA bacteremia - Blood cultures on 08/16 with MRSA in all four vials - 2D echo with no signs of vegetation - L-spine without evidence of osteo - Likely secondary to abscess on buttocks, cultures pending - ID following, on vancomycin - Repeat blood cultures 08/18 NG x 1 day 3. GI bleed - resolved - GI consulted, s/p EGD 08/04 showing mild gastritis and short segment of Stern's esophagus. Recommend repeat EGD in 2 yrs - Continue Protonix BID - GI has signed off - H&H stable and no active bleeding 4. Anemia - Likely acute on chronic - Multifactorial due to GIB, ongoing alcohol abuse and suspected liver disease - Stool Hemoccult neg - Hgb stable around 8.5 - Continue to monitor - Iron studies suggest anemia of chronic disease 5. Hypotension - stable - Encourage PO fluids - LEOPOLDO hose - Continue midodrine 6. EtOH abuse - Previously counseled on cessation - LFTs have normalized - Rally pack - No signs of withdrawal 7. Protein calorie malnutrition, hypoalbuminemia - CT abd/pelvis shows chronic pancreatitis with some calcifications in the head and uncinate process, diffuse hepatic fatty infiltration - Hepatitis and HIV panel nonreactive - PT eval/tx - originally recommended rehab but now suggesting outpatient PT. Pt seen ambulating independently today - PT daily - [employer] following. Recommending nutrition dense foods, low-fat yogurt, milk , Ensure 8. COPD with ongoing tobacco abuse - Not in acute exacerbation - CXR shows chronic COPD changes but no acute process - Continue on nicotine patch - Duonebs prn - Supplemental O2 PRN - Previously counseled on smoking cessation DVT prophylaxis: SCDs, chemical prophylaxis contraindicated due to GI bleed Discharge Planning: Awaiting final antibiotic recommendations by ID, repeat blood cultures have only been negative at 1 day. Will need to await final culture results
[2018-08-20] MEDS: Vancomycin Inj 1,000 MG in Sodium Chlor 0.9% Inj 250 ML IV.SIG SCH ×2 (01:11→13:44)
[2018-08-20 08:11] LABS: Hematocrit 26.9 % (39.0-51.0); Hemoglobin 9.1 gm/dL (13.0-17.0); Mean Corpuscular HGB Conc 33.9 % (32.0-36.0); Mean Corpuscular Hemoglobin 38.5 pg (27.0-34.0); Mean Corpuscular Volume 113.5 fL (80.0-100.0); Mean Platelet Volume 8.9 fL (7.0-11.0); Platelet Count 388 th/mm3 (150-450); Red Blood Count 2.37 mil/mm3 (4.50-5.90); Red Cell Distribution Width 17.6 % (11.6-17.2); White Blood Count 8.8 th/mm3 (4.0-11.0)
[2018-08-20] MEDS: Multivit/Folic Acid/Minerals Chewable Tablets CHEW SCH (08:11)
[2018-08-20] MEDS: Sodium Chloride 0.9% 2 ML Flush BID IV.FLUSH SCH ×2 (08:15→20:25)
--- NOTE | 2018-08-20 09:19 | P.PNIM ---
Subjective Interval history: Pt seen and examined for f/u GI bleed, sepsis, buttock abscesses, and MRSA bacteremia. S/P I&D abscesses POD2. Has some tenderness in his buttock region but states it is well-controlled with the pain medications. He reports he is ambulating fine in his room but feels he may need a walker to go longer distances. He states his appetite is pretty good and he is eating well. Denies abdominal pain, nausea, or vomiting. No CP or SOB. Physical Exam Vital signs: Vital Signs 08/19/18 12:00 08/19/18 16:00 08/19/18 20:00 Temperature 97.8 F 98.0 F 97.7 F Pulse Rate 73 73 61 Respiratory Rate 18 16 18 Blood Pressure 96/60 L 118/61 113/72 Pulse Oximetry 96 94 L 97 08/20/18 00:00 08/20/18 04:00 08/20/18 08:00 Temperature 98.0 F 98.6 F 99.6 F Pulse Rate 67 75 67 Respiratory Rate 18 18 20 Blood Pressure 105/63 108/59 L 99/60 L Pulse Oximetry 92 L 92 L 95 Intake & Output 08/19/18 08/20/18 08/20/18 18:59 06:59 18:59 Intake Total 350 / 350 790 / 790 Output Total 400 / 400 Balance 350 / 350 390 / 390 Weight 56.3 kg Intake: IV 350 / 350 250 / 250 Vancomycin Inj 1,000 MG In NS 250 / 250 250 / 250 Inj 250 ML @ 250 mls/hr IV.SIG Q12H [facility] Rx#:[id number] Rocephin Inj 2,000 MG In NS Inj 100 / 100 100 ML @ 200 mls/hr IV.SIG Q24H [facility] Rx#:[id number] Oral 540 / 540 Output: Urine 400 / 400 Other: # Voids 6 # Bowel Movements 1 Narrative: GENERAL: Thin Cachectic male ambulating the room in NAD. SKIN: Warm and dry. HEENT: AT/NC. Pupils equal and round. MMM. NECK: Supple no tender LAD or JVD. HEART: RRR no m/r/g. LUNGS: CTAB without wheezes or crackles. ABDOMEN: +BS, soft, NT, ND. BUTTOCK: Bandages in place. EXTREMITIES: No LE edema. 2+ pedal pulses. NEURO: Awake and alert. Results - Labs CBC & Chem 7: 08/20/18 07:29 08/19/18 01:15 Laboratory Results - last 24 hr 08/19/18 08/19/18 08/19/18 11:42 15:43 21:33 WBC RBC Hgb Hct MCV MCH MCHC RDW Plt Count MPV POC Glucose 169 H 138 H 132 H Random Vancomycin 08/20/18 08/20/18 08/20/18 07:29 07:29 07:44 WBC 8.8 RBC 2.37 L Hgb 9.1 L Hct 26.9 L MCV 113.5 H MCH 38.5 H MCHC 33.9 RDW 17.6 H Plt Count 388 MPV 8.9 POC Glucose 101 Random Vancomycin 11.9 Microbiology 08/16/18 08:31 Blood - Peripheral Aerobic Blood Culture - Final S. aureus MRSA 08/16/18 08:31 Blood - Peripheral Anaerobic Blood Culture - Final S. aureus MRSA 08/16/18 08:25 Blood - Peripheral Aerobic Blood Culture - Final S. aureus MRSA 08/16/18 08:25 Blood - Peripheral Anaerobic Blood Culture - Final S. aureus MRSA 08/18/18 16:41 Blood - Peripheral Aerobic Blood Culture - Preliminary No growth in 1 day 08/18/18 16:41 Blood - Peripheral Anaerobic Blood Culture - Preliminary No growth in 1 day 08/18/18 16:35 Blood - Peripheral Aerobic Blood Culture - Preliminary No growth in 1 day 08/18/18 16:35 Blood - Peripheral Anaerobic Blood Culture - Preliminary No growth in 1 day - Procedures Date of procedure: 08/04/18 Pre-op diagnosis: GI bleed, melena, anemia, weight loss Procedure: PROCEDURE PERFORMED EGD with biopsy PROCEDURE: The procedure, risks and benefits were discussed with Patient/POA and informed consent was obtained. Anesthesia sedated Patient with Diprivan. Patient was placed in the left lateral decubitus position. EGD: The Pentax videoscope was introduced through the oropharynx and advanced to the second portion of the duodenum under direct visualization. Retroflexion was performed in the stomach. FINDINGS: The esophagus this was unremarkable except for a short segment of Stern's at the distal end measuring less than 1 cm this was biopsied The stomach there was some mild patchy erythema in the antrum but no ulcerations no erosions no blood or bleeding antral biopsies were taken for further evaluation The duodenum this was normal ESTIMATED BLOOD LOSS: None SPECIMENS REMOVED: Esophageal and gastric biopsies COMPLICATIONS: None IMPRESSION: Short segment Stern's esophagus Mild gastritis PLAN: Await biopsies Continue with pantoprazole 40 mg daily EGD in 2 years Advance diet as tolerated Assessment and Plan - Assessment (1) GI bleed Code(s): K92.2 - Gastrointestinal hemorrhage, unspecified Status: Acute (2) Cachectic Code(s): R64 - Cachexia Status: Chronic (3) COPD (chronic obstructive pulmonary disease) Code(s): J44.9 - Chronic obstructive pulmonary disease, unspecified Status: Chronic (4) Weakness Code(s): R53.1 - Weakness Status: Acute (5) Frequent falls Code(s): R29.6 - Repeated falls Status: Acute (6) Unintentional weight loss Code(s): R63.4 - Abnormal weight loss Status: Acute - Plan 57 year old male with COPD, Stern's esophagus, and EtOH abuse admitted on 08/04 after he was found lying on the side of the road by EMS. In the field he was found to have a blood sugar of 50 and at the time he had endorsed he hadn't eaten in days. He was given D50 by EMS. He also complained of weakness, multiple falls, melena, and occasional hematemesis. 1. Sepsis secondary to buttock abscess, UTI - Acute septic component resolved - WBC up to 17 --> has normalized - Lactic acid 2.5 - Urine culture with Citrobacter - Blood cultures 08/16 with MRSA in all four vials - ID following, on vancomycin and Rocephin - General surgery consulted and patient underwent I&D of buttock on 08/18 - Abscess culture pending - Appreciate the expertise of all consultants assisting in patients case 2. MRSA bacteremia - Blood cultures on 08/16 with MRSA in all four vials - 2D echo with no signs of vegetation - L-spine without evidence of osteo - Likely secondary to abscess on buttocks, culture pending - ID following, on vancomycin - Repeat blood cultures 08/18 NG 3. GI bleed - resolved - GI consulted, s/p EGD 08/04 showing mild gastritis and short segment of Stern's esophagus. Recommend repeat EGD in 2 yrs - Continue Protonix BID - GI has signed off - H&H stable and no active bleeding 4. Anemia - Likely acute on chronic - Multifactorial due to GIB, ongoing alcohol abuse and suspected liver disease - Stool Hemoccult neg - Hgb stable around 8-9 - Continue to monitor - Iron studies suggest anemia of chronic disease 5. Hypotension - stable - Encourage PO fluids - LEOPOLDO hose - Continue midodrine 6. EtOH abuse - Previously counseled on cessation - LFTs have normalized - Rally pack - No signs of withdrawal 7. Protein calorie malnutrition, hypoalbuminemia - CT abd/pelvis shows chronic pancreatitis with some calcifications in the head and uncinate process, diffuse hepatic fatty infiltration - Hepatitis and HIV panel nonreactive - PT eval/tx - originally recommended rehab but now suggesting outpatient PT. Pt seen ambulating independently today - PT daily - Turner In following. Recommending nutrition dense foods, low-fat yogurt, milk , Ensure 8. COPD with ongoing tobacco abuse - Not in acute exacerbation - CXR shows chronic COPD changes but no acute process - Continue on nicotine patch - Duonebs prn - Supplemental O2 PRN - Previously counseled on smoking cessation DVT prophylaxis: SCDs, chemical prophylaxis contraindicated due to GI bleed Discharge Planning: Awaiting final antibiotic recommendations by ID. Will need to await final culture results
--- NOTE | 2018-08-20 12:40 | P.PNGS ---
Subjective Interval history: WBC normal. He has no complaints. Physical Exam Vital signs: Vital Signs 08/19/18 16:00 08/19/18 20:00 08/20/18 00:00 Temperature 98.0 F 97.7 F 98.0 F Pulse Rate 73 61 67 Respiratory Rate 16 18 18 Blood Pressure 118/61 113/72 105/63 Pulse Oximetry 94 L 97 92 L 08/20/18 04:00 08/20/18 08:00 08/20/18 12:00 Temperature 98.6 F 99.6 F 97 F L Pulse Rate 75 67 67 Respiratory Rate 18 20 20 Blood Pressure 108/59 L 99/60 L 115/57 L Pulse Oximetry 92 L 95 96 Intake & Output 08/19/18 08/20/18 08/20/18 18:59 06:59 18:59 Intake Total 350 / 350 790 / 790 Output Total 400 / 400 Balance 350 / 350 390 / 390 Weight 56.3 kg Intake: IV 350 / 350 250 / 250 Vancomycin Inj 1,000 MG In NS 250 / 250 250 / 250 Inj 250 ML @ 250 mls/hr IV.SIG Q12H [facility] Rx#:[id number] Rocephin Inj 2,000 MG In NS Inj 100 / 100 100 ML @ 200 mls/hr IV.SIG Q24H [facility] Rx#:[id number] Oral 540 / 540 Output: Urine 400 / 400 Other: # Voids 6 # Bowel Movements 1 Narrative: PAckcing removed from bilateral buttock wounds- left side still with some purulence but improving. Results - Labs 08/20/18 07:29 08/19/18 01:15 Laboratory Results - last 24 hr 08/19/18 08/19/18 08/20/18 15:43 21:33 07:29 WBC 8.8 RBC 2.37 L Hgb 9.1 L Hct 26.9 L MCV 113.5 H MCH 38.5 H MCHC 33.9 RDW 17.6 H Plt Count 388 MPV 8.9 POC Glucose 138 H 132 H Random Vancomycin 08/20/18 08/20/18 08/20/18 07:29 07:44 12:13 WBC RBC Hgb Hct MCV MCH MCHC RDW Plt Count MPV POC Glucose 101 110 Random Vancomycin 11.9 - Imaging Imaging: ITS Impressions Head CT 08/03/18 14:01 CONCLUSION: 1. Chronic sinusitis with regional bony thickening in the superior aspect of the left maxillary antra. 2. Mild, symmetric cortical atrophy. 3. Nothing acute. . Abdomen/Pelvis CT 08/03/18 15:28 CONCLUSION: 1. Chronic pancreatitis with some calcifications in the head and uncinate process. No acute pancreatitis. 2. Diffuse hepatic fatty infiltration. 3. Bibasilar emphysematous changes with no acute infiltrate. Chest X-Ray 08/16/18 00:00 CONCLUSION: 1. No acute abnormality or significant interval change. Hip X-Ray 08/16/18 00:00 CONCLUSION: 1. Small crescentic calcification seen inferior to the inferior acetabulum/ femoral head may be vascular in etiology although a small avulsion fracture cannot be entirely excluded. Lumbar Spine MRI 08/17/18 00:00 CONCLUSION: 1. No evidence of vertebral body osteomyelitis. 2. Minimal circumferential spinal stenosis and bilateral foraminal narrowing at L4-5. 3. Multilevel bilateral perineural root sleeve cysts noted with the largest noted within the lower lumbar spine and upper sacrum. 4. Degenerative disc disease from L2 through L5. Assessment and Plan - Assessment (1) Abscess of buttock, left Code(s): L02.31 - Cutaneous abscess of buttock Status: Acute (2) Abscess of buttock, right Code(s): L02.31 - Cutaneous abscess of buttock Status: Acute - Plan POD 2 s/p I&D bilateral buttock abscesses with copious drainage. Important for packing changes TWICE DAILY. Can f/u with me in one week in office.
[2018-08-21] MEDS: Vancomycin Inj 1,000 MG in Sodium Chlor 0.9% Inj 250 ML IV.SIG SCH ×2 (01:20→13:46)
[2018-08-21] MEDS: Multivit/Folic Acid/Minerals Chewable Tablets CHEW SCH (10:40)
[2018-08-21] MEDS: Sodium Chloride 0.9% 2 ML Flush BID IV.FLUSH SCH ×2 (10:41→21:50)
[2018-08-21] MEDS ORDERED: Pharmacy Ordered Lab Info OTHER ONE (12:45)
--- NOTE | 2018-08-21 13:12 | P.PN ---
Subjective Interval history: Follow-up bilateral buttocks abscesses/bacteremia August 21, 2018-patient seen and examined, currently afebrile and denies any significant buttocks pain. Physical Exam Vital signs: Vital Signs 08/20/18 15:41 08/20/18 20:00 08/21/18 00:00 Temperature 97.9 F 98.5 F 98.6 F Pulse Rate 66 58 L 70 Respiratory Rate 18 18 Blood Pressure 96/58 L 114/64 108/59 L Pulse Oximetry 95 98 93 L 08/21/18 01:51 08/21/18 08:00 08/21/18 12:00 Temperature 97 F L 99.1 F Pulse Rate 66 73 Respiratory Rate 18 Blood Pressure 112/59 L 103/58 L Pulse Oximetry 92 L 97 Intake & Output 08/20/18 08/21/18 08/21/18 18:59 06:59 18:59 Intake Total 850 / 850 350 / 350 Output Total 5 / 5 Balance 845 / 845 350 / 350 Weight 58.9 kg Intake: IV 250 / 250 350 / 350 Vancomycin Inj 1,000 MG In NS 250 / 250 250 / 250 Inj 250 ML @ 250 mls/hr IV.SIG Q12H [facility] Rx#:[id number] Rocephin Inj 2,000 MG In NS Inj 100 / 100 100 ML @ 200 mls/hr IV.SIG Q24H [facility] Rx#:[id number] Oral 600 / 600 Output: Urine 3 / 3 Stool 2 / 2 Other: # Voids 3 Date of Last Bowel Movement 08/20/18 Narrative: GENERAL: Thin Cachectic man in NAD. SKIN: Warm and dry. HEENT: AT/NC. Pupils equal and round. MMM. NECK: Supple no tender LAD or JVD. HEART: RRR no m/r/g. LUNGS: CTAB without wheezes or crackles. ABDOMEN: +BS, soft, NT, ND. BUTTOCK: Bandages in place. EXTREMITIES: No LE edema. 2+ pedal pulses. NEURO: Awake and alert. Results - Labs CBC & Chem 7: 08/20/18 07:29 08/19/18 01:15 Laboratory Results - last 24 hr 08/20/18 08/20/18 08/21/18 16:29 20:26 08:33 POC Glucose 130 H 134 H 92 08/21/18 11:47 POC Glucose 148 H Microbiology 08/18/18 21:34 Abscess - Buttock Gram Stain - Final 08/18/18 21:34 Abscess - Buttock Wound Culture - Final S. aureus MRSA 08/18/18 16:41 Blood - Peripheral Aerobic Blood Culture - Preliminary No growth in 3 days 08/18/18 16:41 Blood - Peripheral Anaerobic Blood Culture - Preliminary No growth in 3 days 08/18/18 16:35 Blood - Peripheral Aerobic Blood Culture - Preliminary No growth in 3 days 08/18/18 16:35 Blood - Peripheral Anaerobic Blood Culture - Preliminary No growth in 3 days - Procedures Date of procedure: 08/04/18 Pre-op diagnosis: GI bleed, melena, anemia, weight loss Procedure: PROCEDURE PERFORMED EGD with biopsy PROCEDURE: The procedure, risks and benefits were discussed with Patient/POA and informed consent was obtained. Anesthesia sedated Patient with Diprivan. Patient was placed in the left lateral decubitus position. EGD: The Pentax videoscope was introduced through the oropharynx and advanced to the second portion of the duodenum under direct visualization. Retroflexion was performed in the stomach. FINDINGS: The esophagus this was unremarkable except for a short segment of Stern's at the distal end measuring less than 1 cm this was biopsied The stomach there was some mild patchy erythema in the antrum but no ulcerations no erosions no blood or bleeding antral biopsies were taken for further evaluation The duodenum this was normal ESTIMATED BLOOD LOSS: None SPECIMENS REMOVED: Esophageal and gastric biopsies COMPLICATIONS: None IMPRESSION: Short segment Stern's esophagus Mild gastritis PLAN: Await biopsies Continue with pantoprazole 40 mg daily EGD in 2 years Advance diet as tolerated Assessment and Plan - Assessment (1) GI bleed Code(s): K92.2 - Gastrointestinal hemorrhage, unspecified Status: Acute (2) Cachectic Code(s): R64 - Cachexia Status: Chronic (3) COPD (chronic obstructive pulmonary disease) Code(s): J44.9 - Chronic obstructive pulmonary disease, unspecified Status: Chronic (4) Weakness Code(s): R53.1 - Weakness Status: Acute (5) Frequent falls Code(s): R29.6 - Repeated falls Status: Acute (6) Unintentional weight loss Code(s): R63.4 - Abnormal weight loss Status: Acute - Plan 57-year-old man with 1. Sepsis secondary to buttock abscess, UTI - Resolved -Continue with vancomycin and Rocephin and monitor culture 2. MRSA bacteremia -Currently on vancomycin and Rocephin pending final culture report - 2D echo with no signs of vegetation - ID following 3. GI bleed - resolved - GI consulted, s/p EGD 08/04 showing mild gastritis and short segment of Stern's esophagus. Recommend repeat EGD in 2 yrs - Continue Protonix BID - GI has signed off - H&H stable and no active bleeding 4. Anemia - Likely acute on chronic - H&H currently stable - Continue to monitor - Iron studies suggest anemia of chronic disease 5. Hypotension - stable - Continue midodrine 6. EtOH abuse - Previously counseled on cessation - Rally pack 7. Protein calorie malnutrition, hypoalbuminemia - CT abd/pelvis shows chronic pancreatitis with some calcifications in the head and uncinate process, diffuse hepatic fatty infiltration - Hepatitis and HIV panel nonreactive - PT eval/tx - 8. COPD with ongoing tobacco abuse - Not in acute exacerbation - Continue on nicotine patch - Duonebs prn - Supplemental O2 PRN - Previously counseled on smoking cessation DVT prophylaxis: SCDs, chemical prophylaxis contraindicated due to GI bleed
--- NOTE | 2018-08-21 16:07 | P.PNID ---
Subjective Remarks: Patient is post I and D of the buttock abscess. Culture has MRSA. Patient was that his pain was relieved after the aspiration of the fluid from the buttock was performed. Temperature down to normal. White blood cell count down to normal. 2D echocardiogram unremarkable. Lumbar spine MRI without evidence of osteomyelitis. A 67-year-old white male who was admitted to the hospital on 08/03/2018 when he presented with weakness. Afebrile on admission and his white blood cell count was normal. The patient was admitted and a chest x-ray showed changes of chronic pulmonary disease. The patient was afebrile for most of that admission. He had a temperature of 100 degrees in the marketing communications leader hours of 08/15/2018 and the temperature then decreased, but ethan again to 101.7 in the evening. Temperature was again noted to be 101 earlier today. His white blood cell count increased from 10.0 on 08/14/2018 to 17.0. He had a CT scan of the abdomen and pelvis on 08/03/2018, which showed chronic pancreatitis with some calcification in the head and uncinate process, but no acute pancreatitis. Past Medical History: PAST MEDICAL HISTORY: Chronic pancreatitis, COPD, Stern's esophagus, rectal prolapse, history of hernia repair. Allergies/Adverse Reactions: Allergies No Known Allergies Allergy (Verified 08/03/18 13:56) Objective Vital Signs 08/20/18 20:00 08/21/18 00:00 08/21/18 01:51 Temperature 98.5 F 98.6 F Pulse Rate 58 L 70 Respiratory Rate 18 18 18 Blood Pressure 114/64 108/59 L Pulse Oximetry 98 93 L 08/21/18 08:00 08/21/18 12:00 Temperature 97 F L 99.1 F Pulse Rate 66 73 Respiratory Rate 18 18 Blood Pressure 112/59 L 103/58 L Pulse Oximetry 92 L 97 Intake & Output 08/20/18 08/21/18 08/21/18 18:59 06:59 18:59 Intake Total 850 / 850 350 / 350 Output Total 5 / 5 Balance 845 / 845 350 / 350 Weight 58.9 kg Intake: IV 250 / 250 350 / 350 Vancomycin Inj 1,000 MG In NS 250 / 250 250 / 250 Inj 250 ML @ 250 mls/hr IV.SIG Q12H [facility] Rx#:[id number] Rocephin Inj 2,000 MG In NS Inj 100 / 100 100 ML @ 200 mls/hr IV.SIG Q24H [facility] Rx#:[id number] Oral 600 / 600 Output: Urine 3 / 3 Stool 2 / 2 Other: # Voids 3 Date of Last Bowel Movement 08/20/18 08/18/18 21:34 Abscess - Buttock Gram Stain - Final 08/18/18 21:34 Abscess - Buttock Wound Culture - Final S. aureus MRSA 08/18/18 16:41 Blood - Peripheral Aerobic Blood Culture - Preliminary No growth in 3 days 08/18/18 16:41 Blood - Peripheral Anaerobic Blood Culture - Preliminary No growth in 3 days 08/18/18 16:35 Blood - Peripheral Aerobic Blood Culture - Preliminary No growth in 3 days 08/18/18 16:35 Blood - Peripheral Anaerobic Blood Culture - Preliminary No growth in 3 days 08/16/18 08:31 Blood - Peripheral Aerobic Blood Culture - Final S. aureus MRSA 08/16/18 08:31 Blood - Peripheral Anaerobic Blood Culture - Final S. aureus MRSA 08/16/18 08:25 Blood - Peripheral Aerobic Blood Culture - Final S. aureus MRSA 08/16/18 08:25 Blood - Peripheral Anaerobic Blood Culture - Final S. aureus MRSA Lab - Hematology Results 08/20/18 07:29 WBC 8.8 RBC 2.37 L Hgb 9.1 L Hct 26.9 L MCV 113.5 H MCH 38.5 H MCHC 33.9 RDW 17.6 H Plt Count 388 MPV 8.9 Lab - Chemistry Results 08/19/18 08/20/18 08/20/18 21:33 07:44 12:13 POC Glucose 132 H 101 110 08/20/18 08/20/18 08/21/18 16:29 20:26 08:33 POC Glucose 130 H 134 H 92 08/21/18 11:47 POC Glucose 148 H Imaging: ITS Impressions Head CT 08/03/18 14:01 CONCLUSION: 1. Chronic sinusitis with regional bony thickening in the superior aspect of the left maxillary antra. 2. Mild, symmetric cortical atrophy. 3. Nothing acute. . Abdomen/Pelvis CT 08/03/18 15:28 CONCLUSION: 1. Chronic pancreatitis with some calcifications in the head and uncinate process. No acute pancreatitis. 2. Diffuse hepatic fatty infiltration. 3. Bibasilar emphysematous changes with no acute infiltrate. Chest X-Ray 08/16/18 00:00 CONCLUSION: 1. No acute abnormality or significant interval change. Hip X-Ray 08/16/18 00:00 CONCLUSION: 1. Small crescentic calcification seen inferior to the inferior acetabulum/ femoral head may be vascular in etiology although a small avulsion fracture cannot be entirely excluded. Lumbar Spine MRI 08/17/18 00:00 CONCLUSION: 1. No evidence of vertebral body osteomyelitis. 2. Minimal circumferential spinal stenosis and bilateral foraminal narrowing at L4-5. 3. Multilevel bilateral perineural root sleeve cysts noted with the largest noted within the lower lumbar spine and upper sacrum. 4. Degenerative disc disease from L2 through L5. Physical Exam: PHYSICAL EXAMINATION: GENERAL: Cachectic-appearing male who is in no acute distress. Awake and alert and oriented. HEENT: Head atraumatic. Extraocular movements are grossly intact. Pupils reactive to light. No icterus. Oropharynx: Moist mucosa. No thrush. No lesions. NECK: Supple. No adenopathy. LUNGS: Diminished clear breath sounds. HEART: Regular, S1, S2. No murmurs. No rubs. No gallops. ABDOMEN: Bowel sounds present. Soft, flat, nontender. Left buttock dressing in place EXTREMITIES: No clubbing, cyanosis or edema. Muscle wasting is apparent at the extremities. SKIN: No diffuse rash. NEUROLOGIC: No gross focal finding. PSYCHIATRIC: Calm and cooperative. Assessment and Plan - Plan IMPRESSION: MRSA bacteremia/Sepsis. Fever and leukocytosis. Elevated lactic acid. Patient without clear foci of sepsis to indicate a source of infection. UTI - gram negative due to Citrobacter. Buttock/cellulitis abscess. MRSA. Source of sepsis. Patient previously fell onto the buttock prior to admission. Back Pain. RECOMMENDATIONS: 1. Continue vancomycin until 08/28/2018. 2. Stop ceftriaxone
[2018-08-21] MEDS: Sodium Chloride 0.45 % Inj 1,000 ML IV.CONT SCH (22:40)
[2018-08-22] MEDS: Vancomycin Inj 1,250 MG in Sodium Chlor 0.9% Inj 250 ML IV.SIG SCH ×2 (00:50→13:19)
[2018-08-22 06:41] LABS: Glomerular Filtration Rate Greater Than 89 mL/min (>89)
[2018-08-22] MEDS: Multivit/Folic Acid/Minerals Chewable Tablets CHEW SCH (10:02)
[2018-08-22] MEDS: Sodium Chloride 0.9% 2 ML Flush BID IV.FLUSH SCH ×2 (10:03→21:04)
--- NOTE | 2018-08-22 10:23 | P.PN ---
Subjective Interval history: Follow-up bilateral buttocks abscesses/bacteremia August 21, 2018-patient seen and examined, currently afebrile and denies any significant buttocks pain. August 22, 2018-patient seen and examined, remains stable and currently on IV vancomycin. Afebrile. Physical Exam Vital signs: Vital Signs 08/21/18 12:00 08/21/18 16:00 08/21/18 20:00 Temperature 99.1 F 98.6 F 97.6 F Pulse Rate 73 71 88 Respiratory Rate 18 18 18 Blood Pressure 103/58 L 110/64 115/70 Pulse Oximetry 97 97 94 L 08/22/18 00:00 08/22/18 08:00 Temperature 97.7 F 97.8 F Pulse Rate 89 65 Respiratory Rate 18 18 Blood Pressure 113/54 L 103/61 Pulse Oximetry 96 91 L Intake & Output 08/21/18 08/22/18 08/22/18 18:59 06:59 18:59 Intake Total 1612.5 / 1612.5 Balance 1612.5 / 1612.5 Weight 52.7 kg Intake: IV 1612.5 / 1612.5 Vancomycin Inj 1,000 MG In NS 250 / 250 Inj 250 ML @ 250 mls/hr IV.SIG Q12H [facility] Rx#:[id number] Vancomycin Inj 1,250 MG In NS 262.5 / 262.5 Inj 250 ML @ 262.5 mls/hr IV. SIG Q12H [facility] Rx#:[id number] Other: # Voids 4 2 # Bowel Movements 3 Narrative: GENERAL: Thin Cachectic man in NAD. SKIN: Warm and dry. HEENT: AT/NC. Pupils equal and round. MMM. NECK: Supple no tender LAD or JVD. HEART: RRR no m/r/g. LUNGS: CTAB without wheezes or crackles. ABDOMEN: +BS, soft, NT, ND. BUTTOCK: Bandages in place. EXTREMITIES: No LE edema. 2+ pedal pulses. NEURO: Awake and alert. Results - Labs CBC & Chem 7: 08/20/18 07:29 08/22/18 05:13 Laboratory Results - last 24 hr 08/21/18 08/21/18 08/21/18 11:47 12:50 18:44 Creatinine Estimated GFR POC Glucose 148 H 132 H Vancomycin Trough 8.6 1108/22/18 08/22/18 21:58 05:13 07:56 Creatinine 0.46 L Estimated GFR Greater than 89 POC Glucose 149 H 105 Vancomycin Trough Microbiology 08/18/18 21:34 Abscess - Buttock Gram Stain - Final 08/18/18 21:34 Abscess - Buttock Wound Culture - Final S. aureus MRSA 08/18/18 16:41 Blood - Peripheral Aerobic Blood Culture - Preliminary No growth in 3 days 08/18/18 16:41 Blood - Peripheral Anaerobic Blood Culture - Preliminary No growth in 3 days 08/18/18 16:35 Blood - Peripheral Aerobic Blood Culture - Preliminary No growth in 3 days 08/18/18 16:35 Blood - Peripheral Anaerobic Blood Culture - Preliminary No growth in 3 days - Procedures Date of procedure: 08/04/18 Pre-op diagnosis: GI bleed, melena, anemia, weight loss Procedure: PROCEDURE PERFORMED EGD with biopsy PROCEDURE: The procedure, risks and benefits were discussed with Patient/POA and informed consent was obtained. Anesthesia sedated Patient with Diprivan. Patient was placed in the left lateral decubitus position. EGD: The Pentax videoscope was introduced through the oropharynx and advanced to the second portion of the duodenum under direct visualization. Retroflexion was performed in the stomach. FINDINGS: The esophagus this was unremarkable except for a short segment of Stern's at the distal end measuring less than 1 cm this was biopsied The stomach there was some mild patchy erythema in the antrum but no ulcerations no erosions no blood or bleeding antral biopsies were taken for further evaluation The duodenum this was normal ESTIMATED BLOOD LOSS: None SPECIMENS REMOVED: Esophageal and gastric biopsies COMPLICATIONS: None IMPRESSION: Short segment Stern's esophagus Mild gastritis PLAN: Await biopsies Continue with pantoprazole 40 mg daily EGD in 2 years Advance diet as tolerated Assessment and Plan - Assessment (1) GI bleed Code(s): K92.2 - Gastrointestinal hemorrhage, unspecified Status: Acute (2) Cachectic Code(s): R64 - Cachexia Status: Chronic (3) COPD (chronic obstructive pulmonary disease) Code(s): J44.9 - Chronic obstructive pulmonary disease, unspecified Status: Chronic (4) Weakness Code(s): R53.1 - Weakness Status: Acute (5) Frequent falls Code(s): R29.6 - Repeated falls Status: Acute (6) Unintentional weight loss Code(s): R63.4 - Abnormal weight loss Status: Acute - Plan 57-year-old man with 1. Sepsis secondary to buttock abscess, UTI - Resolved -Continue with vancomycin until August 28, 2018 2. MRSA bacteremia -Currently on vancomycin until 08/28/18 - 2D echo with no signs of vegetation - ID following 3. GI bleed - resolved - GI consulted, s/p EGD 08/04 showing mild gastritis and short segment of Stern's esophagus. Recommend repeat EGD in 2 yrs - Continue Protonix BID - GI has signed off - H&H stable and no active bleeding 4. Anemia - Likely acute on chronic - H&H currently stable - Continue to monitor - Iron studies suggest anemia of chronic disease 5. Hypotension - stable - Continue midodrine 6. EtOH abuse - Previously counseled on cessation - Rally pack 7. Protein calorie malnutrition, hypoalbuminemia - CT abd/pelvis shows chronic pancreatitis with some calcifications in the head and uncinate process, diffuse hepatic fatty infiltration - Hepatitis and HIV panel nonreactive - PT eval/tx - 8. COPD with ongoing tobacco abuse - Not in acute exacerbation - Continue on nicotine patch - Duonebs prn - Supplemental O2 PRN - Previously counseled on smoking cessation DVT prophylaxis: SCDs, chemical prophylaxis contraindicated due to GI bleed
[2018-08-23] MEDS: Vancomycin Inj 1,250 MG in Sodium Chlor 0.9% Inj 250 ML IV.SIG SCH ×2 (00:17→11:53)
[2018-08-23] MEDS: Multivit/Folic Acid/Minerals Chewable Tablets CHEW SCH (09:32)
[2018-08-23] MEDS: Sodium Chloride 0.9% 2 ML Flush BID IV.FLUSH SCH ×2 (09:33→22:15)
[2018-08-23] MEDS ORDERED: Pharmacy Ordered Lab Info OTHER ONE (11:45)
--- NOTE | 2018-08-23 12:45 | P.PN ---
Subjective Interval history: Follow-up bilateral buttocks abscesses/bacteremia August 23, 2018-patient seen and examined, stable, no complaint, afebrile. Physical Exam Vital signs: Vital Signs 08/22/18 16:00 08/22/18 20:00 08/23/18 00:00 Temperature 98.5 F 97.6 F 98.6 F Pulse Rate 72 69 70 Respiratory Rate 18 18 17 Blood Pressure 102/68 104/63 106/66 Pulse Oximetry 93 L 97 94 L 08/23/18 07:53 08/23/18 11:01 Temperature 98.1 F 97.1 F L Pulse Rate 68 75 Respiratory Rate 20 18 Blood Pressure 100/60 96/60 L Pulse Oximetry 94 L 100 Intake & Output 08/22/18 08/23/18 08/23/18 18:59 06:59 18:59 Intake Total 262.5 / 262.5 762.5 / 762.5 Balance 262.5 / 262.5 762.5 / 762.5 Weight 51.6 kg Intake: IV 262.5 / 262.5 262.5 / 262.5 Vancomycin Inj 1,250 MG In NS 262.5 / 262.5 262.5 / 262.5 Inj 250 ML @ 262.5 mls/hr IV. SIG Q12H [facility] Rx#:[id number] Oral 500 / 500 Other: # Voids 2 3 Date of Last Bowel Movement 08/23/18 # Bowel Movements 4 Narrative: GENERAL: Thin Cachectic man in NAD. SKIN: Warm and dry. HEENT: AT/NC. Pupils equal and round. MMM. NECK: Supple no tender LAD or JVD. HEART: RRR no m/r/g. LUNGS: CTAB without wheezes or crackles. ABDOMEN: +BS, soft, NT, ND. BUTTOCK: Bandages in place. EXTREMITIES: No LE edema. 2+ pedal pulses. NEURO: Awake and alert. Results - Labs CBC & Chem 7: 08/20/18 07:29 08/22/18 05:13 Laboratory Results - last 24 hr 08/23/18 08/23/18 07:44 11:13 POC Glucose 145 H 176 H Microbiology 08/18/18 16:41 Blood - Peripheral Aerobic Blood Culture - Final No growth in 5 days 08/18/18 16:41 Blood - Peripheral Anaerobic Blood Culture - Final No growth in 5 days 08/18/18 16:35 Blood - Peripheral Aerobic Blood Culture - Final No growth in 5 days 08/18/18 16:35 Blood - Peripheral Anaerobic Blood Culture - Final No growth in 5 days - Procedures Date of procedure: 08/04/18 Pre-op diagnosis: GI bleed, melena, anemia, weight loss Procedure: PROCEDURE PERFORMED EGD with biopsy PROCEDURE: The procedure, risks and benefits were discussed with Patient/POA and informed consent was obtained. Anesthesia sedated Patient with Diprivan. Patient was placed in the left lateral decubitus position. EGD: The Pentax videoscope was introduced through the oropharynx and advanced to the second portion of the duodenum under direct visualization. Retroflexion was performed in the stomach. FINDINGS: The esophagus this was unremarkable except for a short segment of Stern's at the distal end measuring less than 1 cm this was biopsied The stomach there was some mild patchy erythema in the antrum but no ulcerations no erosions no blood or bleeding antral biopsies were taken for further evaluation The duodenum this was normal ESTIMATED BLOOD LOSS: None SPECIMENS REMOVED: Esophageal and gastric biopsies COMPLICATIONS: None IMPRESSION: Short segment Stern's esophagus Mild gastritis PLAN: Await biopsies Continue with pantoprazole 40 mg daily EGD in 2 years Advance diet as tolerated Assessment and Plan - Assessment (1) GI bleed Code(s): K92.2 - Gastrointestinal hemorrhage, unspecified Status: Acute (2) Cachectic Code(s): R64 - Cachexia Status: Chronic (3) COPD (chronic obstructive pulmonary disease) Code(s): J44.9 - Chronic obstructive pulmonary disease, unspecified Status: Chronic (4) Weakness Code(s): R53.1 - Weakness Status: Acute (5) Frequent falls Code(s): R29.6 - Repeated falls Status: Acute (6) Unintentional weight loss Code(s): R63.4 - Abnormal weight loss Status: Acute - Plan 57-year-old man with 1. Sepsis secondary to buttock abscess, UTI - Resolved -Continue with vancomycin until August 28, 2018 2. MRSA bacteremia -Currently on vancomycin until 08/28/18 per ID - 2D echo with no signs of vegetation 3. GI bleed - resolved - GI consulted, s/p EGD 08/04 showing mild gastritis and short segment of Stern's esophagus. Recommend repeat EGD in 2 yrs - Continue Protonix BID - GI has signed off - H&H stable and no active bleeding 4. Anemia - Likely acute on chronic - H&H currently stable - Continue to monitor - Iron studies suggest anemia of chronic disease 5. Hypotension - stable - Continue midodrine 6. EtOH abuse - Previously counseled on cessation - Rally pack 7. Protein calorie malnutrition, hypoalbuminemia - CT abd/pelvis shows chronic pancreatitis with some calcifications in the head and uncinate process, diffuse hepatic fatty infiltration - Hepatitis and HIV panel nonreactive - PT eval/tx - 8. COPD with ongoing tobacco abuse - Not in acute exacerbation - Continue on nicotine patch - Duonebs prn - Supplemental O2 PRN - Previously counseled on smoking cessation DVT prophylaxis: SCDs, chemical prophylaxis contraindicated due to GI bleed
--- NOTE | 2018-08-23 17:30 | P.DIET ---
Nutritional Evaluation Type of nutrition evaluation: follow-up Nutrition consult regarding: Diet Evaluation Nutrition screening: Poor PO Intake, [facility] [place] Screening comments: 08/04/18 [facility] [place] Poor PO Intake Subjective Subjective Comments: Pt says "the food is wonderful". Pt has no complaints regarding his meal service and oral supplements-Ensure Enlive and Ensure Pudding. Objective - Diagnosis GI bleed, hyperbilirubinemia - Objective % IBW: 63 (IBW = 208lb) Body Weight Used for Calculations: Actual (58.967kg) Energy Needs - Lower Range (kCal/kg): 40 Energy Needs - Upper Range (kCal/kg): 45 Lower Limit kCal/kg (kCals): 2,359 Upper Limit kCal/kg (kCals): 2,654 Lower Limit Protein Factor (Grams per Kg): 1.3 Upper Limit Protein Factor (Grams per Kg): 1.8 Lower Protein Needs (Protein): 77 Upper Protein Needs (Protein): 106 Fluid Factor (ml/kg): 22 Estimated Fluid Needs (ml): 2,079 Dietitian Reviewed in Medical Record: Current diet, Curent medications, Intake & Output, Labs, Medical history Diet Order: Cardiac Soft Oral Diet Intake Amount: Good 75-90% Speech Therapy Recommendations: No Objective Comments: PMH: Stern's esophagus, chronic pancreatitis, COPD, fatty liver, alcohol abuse , rectal prolapse Meds: Haldol, lMVI w/ folic acid and vit C, vit B1 Labs include: A1C 4.4 LBM 08/23 Feeding - Current PO Supplement Current Supplement: Ensure Enlive Current Frequency of Supplement: Three times a day Current kCals Provided by Supplement: 350 Current Protein Provided by Supplement: 20 Supplement Comments: Ensure Pudding BID(= 170 kcal and 4g protein) Assessment Assessment: Pt continues at nutritional risk r/t reported poor po intake and very low BMI 13.5. Pt w/improved po intake 75% and greater for meals here. Continue Ensure Enlive TID. Continue Ensure Pudding bid for additional nutrition. Pt continues to order nutrient-dense foods like low fat yogurt and milk daily. Labs reviewed. Wt changes noted. Dietitian following. Recommendations: 1. Continue Ensure Enlive TID 2. Continue Ensure Pudding bid for additional nutrition 3. Pt continues to order nutrient-dense foods like low fat yogurt and milk daily 4. Dietitian following Dietitian to Monitor: Lab values, Supplement acceptance, Intake & Output, Weight change, PO Intake, Medical course
[2018-08-23] MEDS: Vancomycin Inj 1,500 MG in Sodium Chlor 0.9% Inj 500 ML IV.SIG SCH (23:43)
[2018-08-24 08:56] LABS: Glomerular Filtration Rate Greater Than 89 mL/min (>89)
--- NOTE | 2018-08-24 09:01 | P.PN ---
Subjective Interval history: Patient Followed due to bilateral buttocks abscesses/Bacteremia. 08/24: Stable in his bedroom, no nausea, vomit or diarrhea, seen in the presence of nurse Miss Snider in his bedroom, will remove Blood sugar checks patient with non Diabetes Mellitus. Physical Exam Vital signs: Vital Signs 08/23/18 11:01 08/23/18 16:00 08/23/18 20:00 Temperature 97.1 F L 97.9 F 98.5 F Pulse Rate 75 66 66 Respiratory Rate 18 18 16 Blood Pressure 96/60 L 90/60 L 105/57 L Pulse Oximetry 100 97 97 08/24/18 00:00 Temperature 97.8 F Pulse Rate 71 Respiratory Rate 16 Blood Pressure 98/56 L Pulse Oximetry 95 Intake & Output 08/23/18 08/24/18 08/24/18 18:59 06:59 18:59 Intake Total 982.5 / 982.5 995 / 995 Balance 982.5 / 982.5 995 / 995 Weight 51.6 kg Intake: IV 262.5 / 262.5 515 / 515 Vancomycin Inj 1,250 MG In NS 262.5 / 262.5 Inj 250 ML @ 262.5 mls/hr IV. SIG Q12H [facility] Rx#:[id number] Vancomycin Inj 1,500 MG In NS 515 / 515 Inj 500 ML @ 257.5 mls/hr IV. SIG Q12H [facility] Rx#:[id number] Oral 720 / 720 480 / 480 Other: # Voids 3 2 Date of Last Bowel Movement 08/23/18 Narrative: GENERAL: Cachectic, in no apparent distress. CARDIOVASCULAR: Regular rate and rhythm without murmurs, gallops, or rubs. RESPIRATORY: Clear to auscultation. Breath sounds equal bilaterally. No wheezes , rales, or rhonchi. GASTROINTESTINAL: Abdomen soft, non-tender, nondistended. Normal active bowel sounds MUSCULOSKELETAL: Extremities without clubbing, cyanosis, edema 2+ NEURO: Alert & Oriented x4 to person, place, time, situation. Moves all ext x4 Results - Labs CBC & Chem 7: 08/20/18 07:29 08/24/18 06:24 Laboratory Results - last 24 hr 08/23/18 08/23/18 08/23/18 11:13 11:45 16:58 Creatinine Estimated GFR POC Glucose 176 H 158 H Vancomycin Trough 9.3 08/24/18 08/24/18 06:24 07:56 Creatinine 0.47 L Estimated GFR Greater than 89 POC Glucose 114 H Vancomycin Trough Microbiology 08/18/18 16:41 Blood - Peripheral Aerobic Blood Culture - Final No growth in 5 days 08/18/18 16:41 Blood - Peripheral Anaerobic Blood Culture - Final No growth in 5 days 08/18/18 16:35 Blood - Peripheral Aerobic Blood Culture - Final No growth in 5 days 08/18/18 16:35 Blood - Peripheral Anaerobic Blood Culture - Final No growth in 5 days - Imaging Head CT 08/03/18 14:01 CONCLUSION: 1. Chronic sinusitis with regional bony thickening in the superior aspect of the left maxillary antra. 2. Mild, symmetric cortical atrophy. 3. Nothing acute. Abdomen/Pelvis CT 08/03/18 15:28 CONCLUSION: 1. Chronic pancreatitis with some calcifications in the head and uncinate process. No acute pancreatitis. 2. Diffuse hepatic fatty infiltration. 3. Bibasilar emphysematous changes with no acute infiltrate. Chest X-Ray 08/16/18 00:00 CONCLUSION: 1. No acute abnormality or significant interval change. Hip X-Ray 08/16/18 00:00 CONCLUSION: 1. Small crescentic calcification seen inferior to the inferior acetabulum/ femoral head may be vascular in etiology although a small avulsion fracture cannot be entirely excluded. Lumbar Spine MRI 08/17/18 00:00 CONCLUSION: 1. No evidence of vertebral body osteomyelitis. 2. Minimal circumferential spinal stenosis and bilateral foraminal narrowing at L4-5. 3. Multilevel bilateral perineural root sleeve cysts noted with the largest noted within the lower lumbar spine and upper sacrum. 4. Degenerative disc disease from L2 through L5. - Procedures Date of procedure: 08/04/18 Pre-op diagnosis: GI bleed, melena, anemia, weight loss Procedure: PROCEDURE PERFORMED EGD with biopsy PROCEDURE: The procedure, risks and benefits were discussed with Patient/POA and informed consent was obtained. Anesthesia sedated Patient with Diprivan. Patient was placed in the left lateral decubitus position. EGD: The Pentax videoscope was introduced through the oropharynx and advanced to the second portion of the duodenum under direct visualization. Retroflexion was performed in the stomach. FINDINGS: The esophagus this was unremarkable except for a short segment of Stern's at the distal end measuring less than 1 cm this was biopsied The stomach there was some mild patchy erythema in the antrum but no ulcerations no erosions no blood or bleeding antral biopsies were taken for further evaluation The duodenum this was normal ESTIMATED BLOOD LOSS: None SPECIMENS REMOVED: Esophageal and gastric biopsies COMPLICATIONS: None IMPRESSION: Short segment Stern's esophagus Mild gastritis PLAN: Await biopsies Continue with pantoprazole 40 mg daily EGD in 2 years Advance diet as tolerated Assessment and Plan - Assessment (1) GI bleed Code(s): K92.2 - Gastrointestinal hemorrhage, unspecified Status: Acute (2) Cachectic Code(s): R64 - Cachexia Status: Chronic (3) COPD (chronic obstructive pulmonary disease) Code(s): J44.9 - Chronic obstructive pulmonary disease, unspecified Status: Chronic (4) Weakness Code(s): R53.1 - Weakness Status: Acute (5) Frequent falls Code(s): R29.6 - Repeated falls Status: Acute (6) Unintentional weight loss Code(s): R63.4 - Abnormal weight loss Status: Acute - Plan 57-year-old man with 1. Sepsis secondary to buttock abscess, UTI - Resolved -Continue with vancomycin until August 28, 2018 2. MRSA bacteremia -Currently on vancomycin until 08/28/18 per ID - 2D echo with no signs of vegetation 3. GI bleed - resolved - GI consulted, s/p EGD 08/04 showing mild gastritis and short segment of Stern's esophagus. Recommend repeat EGD in 2 yrs - Continue Protonix BID - GI has signed off - H&H stable and no active bleeding 4. Anemia - Likely acute on chronic - H&H currently stable - Iron studies suggest anemia of chronic disease 5. Hypotension - stable - Continue midodrine 6. EtOH abuse - Previously counseled on cessation - Rally pack 7. Protein calorie malnutrition, hypoalbuminemia - CT abd/pelvis shows chronic pancreatitis with some calcifications in the head and uncinate process, diffuse hepatic fatty infiltration - Hepatitis and HIV panel nonreactive - PT eval/tx - 8. COPD with ongoing tobacco abuse - Not in acute exacerbation - Continue on nicotine patch - Duonebs prn - Supplemental O2 PRN - Previously counseled on smoking cessation DVT prophylaxis: SCDs, chemical prophylaxis contraindicated due to GI bleed Code Status: Full code. Discussed Condition With: Patient and Nurse Miss Snider and MDR director. Discharge Planning: Once cleared by ID specialist.
[2018-08-24] MEDS: Multivit/Folic Acid/Minerals Chewable Tablets CHEW SCH (10:04)
[2018-08-24] MEDS: Sodium Chloride 0.9% 2 ML Flush BID IV.FLUSH SCH ×2 (10:04→21:21)
[2018-08-24] MEDS: Vancomycin Inj 1,500 MG in Sodium Chlor 0.9% Inj 500 ML IV.SIG SCH (10:05)
[2018-08-24] MEDS ORDERED: Pharmacy Ordered Lab Info OTHER ONE (22:45)
[2018-08-25] MEDS: Vancomycin Inj 1,500 MG in Sodium Chlor 0.9% Inj 500 ML IV.SIG SCH ×3 (00:22→22:50)
[2018-08-25] MEDS: Sodium Chloride 0.9% 2 ML Flush BID IV.FLUSH SCH ×2 (09:11→21:04)
[2018-08-25] MEDS: Multivit/Folic Acid/Minerals Chewable Tablets CHEW SCH (09:11)
--- NOTE | 2018-08-25 12:45 | P.PN ---
Subjective Interval history: Patient Followed due to bilateral buttocks abscesses/Bacteremia. 08/24: Stable in his bedroom, seen in the presence of nurse Miss Snider in his bedroom, will remove Blood sugar checks patient with non Diabetes Mellitus. 08/25: Seen in his bedroom, no nausea, vomit or diarrhea, continue antibiotics. Physical Exam Vital signs: Vital Signs 08/24/18 16:00 08/24/18 20:00 08/25/18 00:00 Temperature 97.5 F L 97.9 F 97.9 F Pulse Rate 68 70 73 Respiratory Rate 20 17 20 Blood Pressure 101/66 118/65 114/67 Pulse Oximetry 96 96 95 08/25/18 08:00 08/25/18 11:54 Temperature 97.3 F L 98.5 F Pulse Rate 65 63 Respiratory Rate 16 16 Blood Pressure 101/61 106/58 L Pulse Oximetry 97 97 Intake & Output 08/24/18 08/25/18 08/25/18 18:59 06:59 18:59 Intake Total 515 / 515 515 / 515 Output Total 7 / Balance 508 / 508 515 / 515 Weight 52.8 kg Intake: IV 515 / 515 515 / 515 Vancomycin Inj 1,500 MG In NS 515 / 515 515 / 515 Inj 500 ML @ 257.5 mls/hr IV. SIG Q12H [facility] Rx#:[id number] Output: Urine 4 / 4 Stool 3 / 3 Other: # Voids 2 Date of Last Bowel Movement 08/24/18 08/24/18 Narrative: GENERAL: Cachectic, in no apparent distress. CARDIOVASCULAR: Regular rate and rhythm without murmurs, gallops, or rubs. RESPIRATORY: Clear to auscultation. Breath sounds equal bilaterally. No wheezes , rales, or rhonchi. GASTROINTESTINAL: Abdomen soft, non-tender, nondistended. Normal active bowel sounds MUSCULOSKELETAL: Extremities without clubbing, cyanosis, edema 2+ NEURO: Alert & Oriented x4 to person, place, time, situation. Moves all ext x4 Results - Labs CBC & Chem 7: 08/20/18 07:29 08/26/18 05:11 Laboratory Results - last 24 hr 08/24/18 22:45 Vancomycin Trough 10.3 H - Imaging Head CT 08/03/18 14:01 CONCLUSION: 1. Chronic sinusitis with regional bony thickening in the superior aspect of the left maxillary antra. 2. Mild, symmetric cortical atrophy. 3. Nothing acute. . Abdomen/Pelvis CT 08/03/18 15:28 CONCLUSION: 1. Chronic pancreatitis with some calcifications in the head and uncinate process. No acute pancreatitis. 2. Diffuse hepatic fatty infiltration. 3. Bibasilar emphysematous changes with no acute infiltrate. Chest X-Ray 08/16/18 00:00 CONCLUSION: 1. No acute abnormality or significant interval change. Hip X-Ray 08/16/18 00:00 CONCLUSION: 1. Small crescentic calcification seen inferior to the inferior acetabulum/ femoral head may be vascular in etiology although a small avulsion fracture cannot be entirely excluded. Lumbar Spine MRI 08/17/18 00:00 CONCLUSION: 1. No evidence of vertebral body osteomyelitis. 2. Minimal circumferential spinal stenosis and bilateral foraminal narrowing at L4-5. 3. Multilevel bilateral perineural root sleeve cysts noted with the largest noted within the lower lumbar spine and upper sacrum. 4. Degenerative disc disease from L2 through L5. - Procedures Date of procedure: 08/04/18 Pre-op diagnosis: GI bleed, melena, anemia, weight loss Procedure: PROCEDURE PERFORMED EGD with biopsy PROCEDURE: The procedure, risks and benefits were discussed with Patient/POA and informed consent was obtained. Anesthesia sedated Patient with Diprivan. Patient was placed in the left lateral decubitus position. EGD: The Pentax videoscope was introduced through the oropharynx and advanced to the second portion of the duodenum under direct visualization. Retroflexion was performed in the stomach. FINDINGS: The esophagus this was unremarkable except for a short segment of Stern's at the distal end measuring less than 1 cm this was biopsied The stomach there was some mild patchy erythema in the antrum but no ulcerations no erosions no blood or bleeding antral biopsies were taken for further evaluation The duodenum this was normal ESTIMATED BLOOD LOSS: None SPECIMENS REMOVED: Esophageal and gastric biopsies COMPLICATIONS: None IMPRESSION: Short segment Stern's esophagus Mild gastritis PLAN: Await biopsies Continue with pantoprazole 40 mg daily EGD in 2 years Advance diet as tolerated Assessment and Plan - Assessment (1) GI bleed Code(s): K92.2 - Gastrointestinal hemorrhage, unspecified Status: Acute (2) Cachectic Code(s): R64 - Cachexia Status: Chronic (3) COPD (chronic obstructive pulmonary disease) Code(s): J44.9 - Chronic obstructive pulmonary disease, unspecified Status: Chronic (4) Weakness Code(s): R53.1 - Weakness Status: Acute (5) Frequent falls Code(s): R29.6 - Repeated falls Status: Acute (6) Unintentional weight loss Code(s): R63.4 - Abnormal weight loss Status: Acute - Plan 57-year-old man with 1. Sepsis secondary to buttock abscess, UTI - Resolved -Continue with vancomycin until August 28, 2018 2. MRSA bacteremia -Currently on vancomycin until 08/28/18 per ID - 2D echo with no signs of vegetation 3. GI bleed - resolved - GI consulted, s/p EGD 08/04 showing mild gastritis and short segment of Stern's esophagus. Recommend repeat EGD in 2 yrs - Continue Protonix BID - GI has signed off - H&H stable and no active bleeding 4. Anemia - Likely acute on chronic - H&H currently stable - Iron studies suggest anemia of chronic disease 5. Hypotension - stable - Continue midodrine 6. EtOH abuse - Previously counseled on cessation - Rally pack 7. Protein calorie malnutrition, hypoalbuminemia - CT abd/pelvis shows chronic pancreatitis with some calcifications in the head and uncinate process, diffuse hepatic fatty infiltration - Hepatitis and HIV panel nonreactive - PT eval/tx - 8. COPD with ongoing tobacco abuse - Not in acute exacerbation - Continue on nicotine patch - Duonebs prn - Supplemental O2 PRN - Previously counseled on smoking cessation DVT prophylaxis: SCDs, chemical prophylaxis contraindicated due to GI bleed No changes to anterior assessment. Code Status: Full Code. Discussed Condition With: Patient and Nurse. Discharge Planning: Once cleared by ID specialist.
[2018-08-26] MEDS: Multivit/Folic Acid/Minerals Chewable Tablets CHEW SCH (08:01)
[2018-08-26] MEDS: Sodium Chloride 0.9% 2 ML Flush BID IV.FLUSH SCH ×2 (08:03→21:18)
[2018-08-26 08:26] LABS: Glomerular Filtration Rate Greater Than 89 mL/min (>89)
--- NOTE | 2018-08-26 10:06 | P.PN ---
Subjective Interval history: Patient Followed due to bilateral buttocks abscesses/Bacteremia. 08/24: Stable in his bedroom, seen in the presence of nurse Miss Snider in his bedroom, will remove Blood sugar checks patient with non Diabetes Mellitus. 08/25: Seen in his bedroom, continue antibiotics. 08/26: Discussed with nurse, with patient, waiting until August 28 to complete antibiotics for discharge. No nausea, vomit or diarrhea. Physical Exam Vital signs: Vital Signs 08/25/18 11:54 08/25/18 16:00 08/25/18 20:00 Temperature 98.5 F 97.3 F L 97.6 F Pulse Rate 63 69 68 Respiratory Rate 16 16 18 Blood Pressure 106/58 L 101/59 L 98/58 L Pulse Oximetry 97 97 95 08/26/18 00:00 08/26/18 08:00 Temperature 97.6 F 97.7 F Pulse Rate 75 63 Respiratory Rate 18 18 Blood Pressure 107/61 116/62 Pulse Oximetry 94 L 96 Intake & Output 08/25/18 08/26/18 08/26/18 18:59 06:59 18:59 Intake Total 1615 / 1615 875 / 875 Balance 1615 / 1615 875 / 875 Weight 52.9 kg Intake: IV 515 / 515 515 / 515 Vancomycin Inj 1,500 MG In NS 515 / 515 515 / 515 Inj 500 ML @ 257.5 mls/hr IV. SIG Q12H [facility] Rx#:[id number] Oral 1100 / 1100 360 / 360 Other: # Voids 7 3 Date of Last Bowel Movement 08/25/18 08/25/18 # Bowel Movements 3 Narrative: GENERAL: Cachectic, in no apparent distress. CARDIOVASCULAR: Regular rate and rhythm without murmurs, gallops, or rubs. RESPIRATORY: Clear to auscultation. Breath sounds equal bilaterally. No wheezes , rales, or rhonchi. GASTROINTESTINAL: Abdomen soft, non-tender, nondistended. Normal active bowel sounds MUSCULOSKELETAL: Extremities without clubbing, cyanosis, edema 2+ NEURO: Alert & Oriented x4 to person, place, time, situation. Moves all ext x4 Results - Labs CBC & Chem 7: 08/20/18 07:29 08/26/18 05:11 Laboratory Results - last 24 hr 08/26/18 05:11 Creatinine 0.51 L Estimated GFR Greater than 89 - Imaging Head CT 08/03/18 14:01 CONCLUSION: 1. Chronic sinusitis with regional bony thickening in the superior aspect of the left maxillary antra. 2. Mild, symmetric cortical atrophy. 3. Nothing acute. . Abdomen/Pelvis CT 08/03/18 15:28 CONCLUSION: 1. Chronic pancreatitis with some calcifications in the head and uncinate process. No acute pancreatitis. 2. Diffuse hepatic fatty infiltration. 3. Bibasilar emphysematous changes with no acute infiltrate. Chest X-Ray 08/16/18 00:00 CONCLUSION: 1. No acute abnormality or significant interval change. Hip X-Ray 08/16/18 00:00 CONCLUSION: 1. Small crescentic calcification seen inferior to the inferior acetabulum/ femoral head may be vascular in etiology although a small avulsion fracture cannot be entirely excluded. Lumbar Spine MRI 08/17/18 00:00 CONCLUSION: 1. No evidence of vertebral body osteomyelitis. 2. Minimal circumferential spinal stenosis and bilateral foraminal narrowing at L4-5. 3. Multilevel bilateral perineural root sleeve cysts noted with the largest noted within the lower lumbar spine and upper sacrum. 4. Degenerative disc disease from L2 through L5. - Procedures Date of procedure: 08/04/18 Pre-op diagnosis: GI bleed, melena, anemia, weight loss Procedure: PROCEDURE PERFORMED EGD with biopsy PROCEDURE: The procedure, risks and benefits were discussed with Patient/POA and informed consent was obtained. Anesthesia sedated Patient with Diprivan. Patient was placed in the left lateral decubitus position. EGD: The Pentax videoscope was introduced through the oropharynx and advanced to the second portion of the duodenum under direct visualization. Retroflexion was performed in the stomach. FINDINGS: The esophagus this was unremarkable except for a short segment of Stern's at the distal end measuring less than 1 cm this was biopsied The stomach there was some mild patchy erythema in the antrum but no ulcerations no erosions no blood or bleeding antral biopsies were taken for further evaluation The duodenum this was normal ESTIMATED BLOOD LOSS: None SPECIMENS REMOVED: Esophageal and gastric biopsies COMPLICATIONS: None IMPRESSION: Short segment Stern's esophagus Mild gastritis PLAN: Await biopsies Continue with pantoprazole 40 mg daily EGD in 2 years Advance diet as tolerated Assessment and Plan - Assessment (1) GI bleed Code(s): K92.2 - Gastrointestinal hemorrhage, unspecified Status: Acute (2) Cachectic Code(s): R64 - Cachexia Status: Chronic (3) COPD (chronic obstructive pulmonary disease) Code(s): J44.9 - Chronic obstructive pulmonary disease, unspecified Status: Chronic (4) Weakness Code(s): R53.1 - Weakness Status: Acute (5) Frequent falls Code(s): R29.6 - Repeated falls Status: Acute (6) Unintentional weight loss Code(s): R63.4 - Abnormal weight loss Status: Acute - Plan 57-year-old man with 1. Sepsis secondary to buttock abscess, UTI - Resolved -Continue with vancomycin until August 28, 2018 2. MRSA bacteremia -Currently on vancomycin until 08/28/18 per ID - 2D echo with no signs of vegetation 3. GI bleed - resolved - GI consulted, s/p EGD 08/04 showing mild gastritis and short segment of Stern's esophagus. Recommend repeat EGD in 2 yrs - Continue Protonix BID - GI has signed off - H&H stable and no active bleeding 4. Anemia - Likely acute on chronic - H&H currently stable - Iron studies suggest anemia of chronic disease 5. Hypotension - stable - Continue midodrine 6. EtOH abuse - Previously counseled on cessation - Rally pack 7. Protein calorie malnutrition, hypoalbuminemia - CT abd/pelvis shows chronic pancreatitis with some calcifications in the head and uncinate process, diffuse hepatic fatty infiltration - Hepatitis and HIV panel nonreactive - PT eval/tx - 8. COPD with ongoing tobacco abuse - Not in acute exacerbation - Continue on nicotine patch - Duonebs prn - Supplemental O2 PRN - Previously counseled on smoking cessation DVT prophylaxis: SCDs, chemical prophylaxis contraindicated due to GI bleed No changes to anterior assessment. Code Status: Full Code. Discussed Condition With: Patient and Nurse. Discharge Planning: Discharge on August 28 once finish his antibiotics. .
[2018-08-26] MEDS: Vancomycin Inj 1,500 MG in Sodium Chlor 0.9% Inj 500 ML IV.SIG SCH ×2 (11:05→22:25)
[2018-08-27] MEDS: Multivit/Folic Acid/Minerals Chewable Tablets CHEW SCH (08:11)
[2018-08-27] MEDS: Sodium Chloride 0.9% 2 ML Flush BID IV.FLUSH SCH ×2 (08:12→22:04)
--- NOTE | 2018-08-27 09:13 | P.PN ---
Subjective Interval history: Patient Followed due to bilateral buttocks abscesses/Bacteremia. 08/24: Stable in his bedroom, seen in the presence of nurse Miss Snider in his bedroom, will remove Blood sugar checks patient with non Diabetes Mellitus. 08/25: Seen in his bedroom, continue antibiotics. 08/26: Discussed with nurse, with patient, waiting until August 28 to complete antibiotics for discharge. 08/27: Awaiting to finish tomorrow his Vancomycin and will go home with [facility] for Wound care. no nausea, vomit or diarrhea. Physical Exam Vital signs: Vital Signs 08/26/18 12:00 08/26/18 16:00 08/26/18 20:00 Temperature 98.0 F 97.5 F L 97.1 F L Pulse Rate 69 77 67 Respiratory Rate 18 18 16 Blood Pressure 101/57 L 103/64 119/71 Pulse Oximetry 98 98 95 08/27/18 00:00 08/27/18 08:00 Temperature 98.0 F 97.8 F Pulse Rate 65 71 Respiratory Rate 18 Blood Pressure 121/70 106/66 Pulse Oximetry 96 95 Intake & Output 08/26/18 08/27/18 08/27/18 18:59 06:59 18:59 Intake Total 1475 / 1475 515 / 515 Output Total 200 / 200 Balance 1475 / 1475 315 / 315 Weight 53.3 kg Intake: IV 515 / 515 515 / 515 Vancomycin Inj 1,500 MG In NS 515 / 515 515 / 515 Inj 500 ML @ 257.5 mls/hr IV. SIG Q12H [facility] Rx#:[id number] Oral 960 / 960 Output: Urine 200 / 200 Other: # Voids 3 Date of Last Bowel Movement 08/26/18 # Bowel Movements 1 Narrative: GENERAL: Cachectic, in no apparent distress. CARDIOVASCULAR: Regular rate and rhythm without murmurs, gallops, or rubs. RESPIRATORY: Clear to auscultation. Breath sounds equal bilaterally. No wheezes , rales, or rhonchi. GASTROINTESTINAL: Abdomen soft, non-tender, nondistended. Normal active bowel sounds MUSCULOSKELETAL: Extremities without clubbing, cyanosis, edema 2+ NEURO: Alert & Oriented x4 to person, place, time, situation. Moves all ext x4 Results - Labs CBC & Chem 7: 08/20/18 07:29 08/28/18 04:49 - Imaging Head CT 08/03/18 14:01 CONCLUSION: 1. Chronic sinusitis with regional bony thickening in the superior aspect of the left maxillary antra. 2. Mild, symmetric cortical atrophy. 3. Nothing acute. . Abdomen/Pelvis CT 08/03/18 15:28 CONCLUSION: 1. Chronic pancreatitis with some calcifications in the head and uncinate process. No acute pancreatitis. 2. Diffuse hepatic fatty infiltration. 3. Bibasilar emphysematous changes with no acute infiltrate. Chest X-Ray 08/16/18 00:00 CONCLUSION: 1. No acute abnormality or significant interval change. Hip X-Ray 08/16/18 00:00 CONCLUSION: 1. Small crescentic calcification seen inferior to the inferior acetabulum/ femoral head may be vascular in etiology although a small avulsion fracture cannot be entirely excluded. Lumbar Spine MRI 08/17/18 00:00 CONCLUSION: 1. No evidence of vertebral body osteomyelitis. 2. Minimal circumferential spinal stenosis and bilateral foraminal narrowing at L4-5. 3. Multilevel bilateral perineural root sleeve cysts noted with the largest noted within the lower lumbar spine and upper sacrum. 4. Degenerative disc disease from L2 through L5. - Procedures Date of procedure: 08/04/18 Pre-op diagnosis: GI bleed, melena, anemia, weight loss Procedure: PROCEDURE PERFORMED EGD with biopsy PROCEDURE: The procedure, risks and benefits were discussed with Patient/POA and informed consent was obtained. Anesthesia sedated Patient with Diprivan. Patient was placed in the left lateral decubitus position. EGD: The Pentax videoscope was introduced through the oropharynx and advanced to the second portion of the duodenum under direct visualization. Retroflexion was performed in the stomach. FINDINGS: The esophagus this was unremarkable except for a short segment of Stern's at the distal end measuring less than 1 cm this was biopsied The stomach there was some mild patchy erythema in the antrum but no ulcerations no erosions no blood or bleeding antral biopsies were taken for further evaluation The duodenum this was normal ESTIMATED BLOOD LOSS: None SPECIMENS REMOVED: Esophageal and gastric biopsies COMPLICATIONS: None IMPRESSION: Short segment Stern's esophagus Mild gastritis PLAN: Await biopsies Continue with pantoprazole 40 mg daily EGD in 2 years Advance diet as tolerated Assessment and Plan - Assessment (1) GI bleed Code(s): K92.2 - Gastrointestinal hemorrhage, unspecified Status: Acute (2) Cachectic Code(s): R64 - Cachexia Status: Chronic (3) COPD (chronic obstructive pulmonary disease) Code(s): J44.9 - Chronic obstructive pulmonary disease, unspecified Status: Chronic (4) Weakness Code(s): R53.1 - Weakness Status: Acute (5) Frequent falls Code(s): R29.6 - Repeated falls Status: Acute (6) Unintentional weight loss Code(s): R63.4 - Abnormal weight loss Status: Acute - Plan 57-year-old man with 1. Sepsis secondary to buttock abscess, UTI - Resolved -Continue with vancomycin until August 28, 2018 2. MRSA bacteremia -Currently on vancomycin until 08/28/18 per ID - 2D echo with no signs of vegetation 3. GI bleed - resolved - GI consulted, s/p EGD 08/04 showing mild gastritis and short segment of Stern's esophagus. Recommend repeat EGD in 2 yrs - Continue Protonix BID - GI has signed off - H&H stable and no active bleeding 4. Anemia - Likely acute on chronic - H&H currently stable - Iron studies suggest anemia of chronic disease 5. Hypotension - stable - Continue midodrine 6. EtOH abuse - Previously counseled on cessation - Rally pack 7. Protein calorie malnutrition, hypoalbuminemia - CT abd/pelvis shows chronic pancreatitis with some calcifications in the head and uncinate process, diffuse hepatic fatty infiltration - Hepatitis and HIV panel nonreactive - PT eval/tx - 8. COPD with ongoing tobacco abuse - Not in acute exacerbation - Continue on nicotine patch - Duonebs prn - Supplemental O2 PRN - Previously counseled on smoking cessation DVT prophylaxis: SCDs, chemical prophylaxis contraindicated due to GI bleed will discharge tomorrow on [facility] Code Status: Full code. Discussed Condition With: Patient and Nurse Miss Lay and [employer]. Discharge Planning: Discharge on August 28 once finish his antibiotics. .
[2018-08-27] MEDS: Vancomycin Inj 1,500 MG in Sodium Chlor 0.9% Inj 500 ML IV.SIG SCH ×2 (10:46→22:07)
[2018-08-28 05:41] LABS: Glomerular Filtration Rate Greater Than 89 mL/min (>89)
[2018-08-28 08:56] VITALS: BP 111/65; PULSE 70; RESP 19; TEMP 97.9; O2SAT 96
[2018-08-28] MEDS: Multivit/Folic Acid/Minerals Chewable Tablets CHEW SCH (09:03)
[2018-08-28] MEDS: Sodium Chloride 0.9% 2 ML Flush BID IV.FLUSH SCH (09:04)
--- NOTE | 2018-08-28 10:21 | P.DS ---
Date of admission: 08/04/18 10:05 Primary care physician: No Primary Care Physician Attending physician on discharge: Jona Cazares Anticipated date of discharge: 08/28/18 Brief History from admission: Patient is a 57-year-old male with a past medical history of COPD, Stern's esophagus and EtOH abuse. He presents to the ED for an evaluation of weakness - per ED report he was found lying on the side of the road and was picked up by EMS. He was found to have a blood sugar of 50 at that time and endorsed that he had not eaten in a few days; given D50 by EMS. He says he has been so weak he could not walk and had multiple falls. He endorses black stool and occasional emesis with some red blood in it. Also has a complaint of recent weight loss; stating that his pants are falling off. He denies any shortness of breath or chest pain. No nausea vomiting or diarrhea. Does acknowledge a history of EtOH use and liver disease and has reduced his alcohol intake but still drinks occasionally. He is a smoker. Reports that he lives in a hotel room with his longtime girlfriend. No children or other family in the area. Previously worked in [employer] but not currently working. DS: Diagnosis - Discharge Diagnosis (1) GI bleed Status: Acute (2) Cachectic Status: Chronic (3) COPD (chronic obstructive pulmonary disease) Status: Chronic (4) Weakness Status: Acute (5) Frequent falls Status: Acute (6) Unintentional weight loss Status: Acute DS: Medications - Discharge Medications Prescriptions: budesonide-formoterol [Symbicort] 2 puff INHALATION Q12H #1 bottle hydrocodone-acetaminophen 1 tab PO Q6H PRN #10 tab PRN Reason: Pain Scale 4 To 10 midodrine 10 mg PO TID #90 tab nicotine 1 patch TRANSDERMAL DAILY #30 ea pantoprazole 40 mg PO BID #20 tab thiamine HCl (vitamin B1) 100 mg PO BID #30 tab DS: Summary Hospital Course: Patient Followed due to bilateral buttocks abscesses/Bacteremia. 08/24: Stable in his bedroom, seen in the presence of nurse Miss Snider in his bedroom, will remove Blood sugar checks patient with non Diabetes Mellitus. 08/25: Seen in his bedroom, continue antibiotics. 08/26: Discussed with nurse, with patient, waiting until August 28 to complete antibiotics for discharge. 08/27: Awaiting to finish tomorrow his Vancomycin and will go home with [facility] for Wound care. 08/28: Okay to discharge to Home with [facility] for wound care, after he finishes his antibiotics later today no nausea, vomit or diarrhea. Assessment and Plan - Assessment (1) GI bleed Code(s): K92.2 - Gastrointestinal hemorrhage, unspecified Status: Acute (2) Cachectic Code(s): R64 - Cachexia Status: Chronic (3) COPD (chronic obstructive pulmonary disease) Code(s): J44.9 - Chronic obstructive pulmonary disease, unspecified Status: Chronic (4) Weakness Code(s): R53.1 - Weakness Status: Acute (5) Frequent falls Code(s): R29.6 - Repeated falls Status: Acute (6) Unintentional weight loss Code(s): R63.4 - Abnormal weight loss Status: Acute - Plan 57-year-old man with 1. Sepsis secondary to buttock abscess, UTI - Resolved -Continue with vancomycin until August 28, 2018 2. MRSA bacteremia -Currently on vancomycin until 08/28/18 per ID - 2D echo with no signs of vegetation 3. GI bleed - resolved - GI consulted, s/p EGD 08/04 showing mild gastritis and short segment of Stern's esophagus. Recommend repeat EGD in 2 yrs - Continue Protonix BID - GI has signed off - H&H stable and no active bleeding 4. Anemia - Likely acute on chronic - H&H currently stable - Iron studies suggest anemia of chronic disease 5. Hypotension - stable - Continue midodrine 6. EtOH abuse - Previously counseled on cessation - Rally pack 7. Protein calorie malnutrition, hypoalbuminemia - CT abd/pelvis shows chronic pancreatitis with some calcifications in the head and uncinate process, diffuse hepatic fatty infiltration - Hepatitis and HIV panel nonreactive - PT eval/tx - 8. COPD with ongoing tobacco abuse - Not in acute exacerbation - Continue on nicotine patch - Duonebs prn - Supplemental O2 PRN - Previously counseled on smoking cessation DVT prophylaxis: SCDs, chemical prophylaxis contraindicated due to GI bleed will discharge today on [facility] Code Status: Full code. Discussed Condition With: Patient and Nurse and Extension Educator. Discharge Planning: Discharge home on [facility] for Wound care - Time Spent with Patient Total time spent providing and/or coordinating discharge services: Greater than 30 minutes - Quality: VTE Deep Vein Thrombosis/Pulmonary Embolism Present on Admission: No Exam Vital signs: Vital Signs 08/27/18 12:00 08/27/18 16:00 08/27/18 20:00 Temperature 97.5 F L 98.1 F 97.9 F Pulse Rate 78 71 70 Respiratory Rate 18 18 18 Blood Pressure 101/62 110/70 126/69 Pulse Oximetry 94 L 97 96 08/28/18 00:00 08/28/18 08:00 Temperature 97.0 F L 97.9 F Pulse Rate 64 70 Respiratory Rate 18 19 Blood Pressure 109/72 111/65 Pulse Oximetry 95 96 Intake & Output 08/27/18 08/28/18 08/28/18 18:59 06:59 18:59 Intake Total 1475 / 1475 995 / 995 Balance 1475 / 1475 995 / 995 Weight 53.3 kg Intake: IV 515 / 515 515 / 515 Vancomycin Inj 1,500 MG In NS 515 / 515 515 / 515 Inj 500 ML @ 257.5 mls/hr IV. SIG Q12H [facility] Rx#:[id number] Oral 960 / 960 480 / 480 Other: # Voids 3 1 Date of Last Bowel Movement 08/26/18 08/26/18 # Bowel Movements 1 Narrative: GENERAL: Cachectic, in no apparent distress. CARDIOVASCULAR: Regular rate and rhythm without murmurs, gallops, or rubs. RESPIRATORY: Clear to auscultation. Breath sounds equal bilaterally. No wheezes , rales, or rhonchi. GASTROINTESTINAL: Abdomen soft, non-tender, nondistended. Normal active bowel sounds MUSCULOSKELETAL: Extremities without clubbing, cyanosis, edema 2+ NEURO: Alert & Oriented x4 to person, place, time, situation. Moves all ext x4 Results Procedures completed during hospitalization: Date of procedure: 08/04/18 Pre-op diagnosis: GI bleed, melena, anemia, weight loss Procedure: PROCEDURE PERFORMED EGD with biopsy PROCEDURE: The procedure, risks and benefits were discussed with Patient/POA and informed consent was obtained. Anesthesia sedated Patient with Diprivan. Patient was placed in the left lateral decubitus position. EGD: The Pentax videoscope was introduced through the oropharynx and advanced to the second portion of the duodenum under direct visualization. Retroflexion was performed in the stomach. FINDINGS: The esophagus this was unremarkable except for a short segment of Stern's at the distal end measuring less than 1 cm this was biopsied The stomach there was some mild patchy erythema in the antrum but no ulcerations no erosions no blood or bleeding antral biopsies were taken for further evaluation The duodenum this was normal ESTIMATED BLOOD LOSS: None SPECIMENS REMOVED: Esophageal and gastric biopsies COMPLICATIONS: None IMPRESSION: Short segment Stern's esophagus Mild gastritis PLAN: Await biopsies Continue with pantoprazole 40 mg daily EGD in 2 years Advance diet as tolerated Completed studies during hospitalization: Pending at discharge 08/04/18 07:47 Surgical [PTH] Routine Labs on day of discharge: Labs from last 24 hours 08/28/18 04:49 Creatinine 0.50 L Estimated GFR Greater than 89 - Impressions ITS Impressions Head CT 08/03/18 14:01 CONCLUSION: 1. Chronic sinusitis with regional bony thickening in the superior aspect of the left maxillary antra. 2. Mild, symmetric cortical atrophy. 3. Nothing acute. . Abdomen/Pelvis CT 08/03/18 15:28 CONCLUSION: 1. Chronic pancreatitis with some calcifications in the head and uncinate process. No acute pancreatitis. 2. Diffuse hepatic fatty infiltration. 3. Bibasilar emphysematous changes with no acute infiltrate. Chest X-Ray 08/16/18 00:00 CONCLUSION: 1. No acute abnormality or significant interval change. Hip X-Ray 08/16/18 00:00 CONCLUSION: 1. Small crescentic calcification seen inferior to the inferior acetabulum/ femoral head may be vascular in etiology although a small avulsion fracture cannot be entirely excluded. Lumbar Spine MRI 08/17/18 00:00 CONCLUSION: 1. No evidence of vertebral body osteomyelitis. 2. Minimal circumferential spinal stenosis and bilateral foraminal narrowing at L4-5. 3. Multilevel bilateral perineural root sleeve cysts noted with the largest noted within the lower lumbar spine and upper sacrum. 4. Degenerative disc disease from L2 through L5. Discharge Plan - Discharge Disposition Patient Disposition: W/Home Health Service - Discharge Condition Condition: Stable - Discharge Order Discharge Orders: Discharge Order (Routine); Ordered 08/28/18 Ordered By: Jona Cazares - Discharge Details Anticipated Discharge Date: 08/28/18 Discharge Comment: Follow up with PCP in three days. - Physicians Team Primary Care Provider: Primary Care Physici,No Attending Provider: Jona Cazares Other Providers: Gurdeep Morales MD ; Emmanuel Holm MD ; Adriel,MD Bill
[2018-08-28] MEDS: Vancomycin Inj 1,500 MG in Sodium Chlor 0.9% Inj 500 ML IV.SIG SCH (10:34)
--- NOTE | 2018-08-28 12:54 | P.DCO ---
- Diagnosis (1) Abscess of buttock, left Status: Acute (2) Abscess of buttock, right Status: Acute - Home Health Nursing Order: Medical education, Signs/symptoms of disease process, Medication education-adverse effect, Wound care and dressing changes, Nursing assessment with vital signs - Case Management Consult Case Management Consult-Home Health: Yes - Certification I have seen patient Jose Armando Landaverde on 08/28/18. My clinical findings support the need for the requested home health care services because: Limited mobility due to disease progression I certify that my clinical findings support that this patient is homebound because: Unsafe to leave home unassisted
[2018-08-29] MEDS ORDERED: Pharmacy Ordered Lab Info OTHER ONE (10:45)
== END 2018-08-28 16:19 | disposition home health service (06) ==
LOC: NEDA 13:43 → NEPE 13:43 → NEDA 18:44 → NEPHCDU 18:45 → N07 08-08 10:12
PROVIDERS: ADMIT Internal Medicine; ATTEND Internal Medicine